=== PATIENT | female | born 1935 | race Caucasian/White ===

== ENCOUNTER → 2019-10-12 13:44 | Outpatient (BNVA) | payer MEDICARE, SELFPAY | PROVIDERS: Family Provider Internal Medicine; PCP Internal Medicine; Visit Provider Nurse Practitioner Family | DX: N39.0 Urinary tract infection, site not specified (principal); R35.0 Frequency of micturition; R30.0 Dysuria; E86.0 Dehydration | CPT/HCPCS: 81000 ==

== ENCOUNTER 2020-05-21 13:14 | Outpatient (CLI) | payer MEDICARE, SELFPAY ==
[2020-05-21] MEDS: iohexol 300 mg/mL 50 mL Btl IV (14:32)
[2020-05-21] MEDS: iodixanol 320 mg/mL 100mL Btl IV (14:33)
--- NOTE | 2020-05-21 15:30 | CT_ITS ---
WS: [id number] CT ABDOMEN AND PELVIS WITH CONTRAST HISTORY: R63.4 - Abnormal weight loss TECHNIQUE: Imaging performed of the abdomen and pelvis with IV contrast. Single phase imaging of the abdomen. Coronal and sagittal reformats are submitted. All CT scans at [facility] use at least one of these dose optimization techniques: automated exposure control; mA and/or kV adjustment per patient size (includes targeted exams where dose is matched to clinical indication); or iterativ e reconstruction. IV CONTRAST: Visipaque 320; 95 mL IV. Oral contrast: Yes. DLP: 604.03 mGy.cm COMPARISON: None available. Lower thorax: Lung bases are clear. Mild enlargement the heart chambers. No hiatal hernia. Liver/biliary system: Normal size with no intrahepatic dilatation. Gallbladder: Normal. No gallstones or wall thickening. No pericholecystic fluid. Pancreas: Normal. Spleen: Normal. Adrenal glands: Normal. Right kidney: Normal size kidney. There are multiple parapelvic cysts and acquired parenchymal cysts within the RIGHT kidney. No obstruction. Left kidney: Normal size kidney. Multiple parapelvic cysts and cord parenchymal cysts. There is a non obstructing 1.2 cm calcification in the lower pole. Aorta: Atherosclerosis of aorta. No aneurysm. Lymphadenopathy: None. Free fluid: None. GI tract: Appendix is not definitely identified. No secondary findings of appendicitis. Moderate diff use fecal retention. Numerous diverticula in the descending and sigmoid colon. No acute inflammation. Abdominal wall: Unremarkable abdominal wall. No hernia. Pelvis: Prior hysterectomy. Moderately well distended urinary bladder. Bones: L4 anterolisthesis by 6 mm. 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 CT/CT abdomen pelvis w con* [id number] IMPRESSION: 1. No acute abdominal or pelvic abnormalities are identified. 2. Diverticulosis throughout the large portion of the colon but no diverticuli tis. 3. Bilateral renal cysts and parapelvic cysts with no obstruction. 4. No ascites or mass.
== END 2020-05-21 13:15 | disposition home or self-care (01) ==
PROVIDERS: PCP Internal Medicine; Visit Provider Internal Medicine
DX: R63.4 Abnormal weight loss (principal); R10.31 Right lower quadrant pain; N28.1 Cyst of kidney, acquired; K57.30 Diverticulosis of large intestine without perforation or abscess without bleeding
CPT/HCPCS: 74177; 80053; 81000; 85025

== ENCOUNTER 2021-07-13 21:53 | Emergency (ER) | payer MEDICARE, SELFPAY ==
[2021-07-13 22:02] VITALS: BP 191/93; PULSE 90; RESP 16; TEMP 36.6; O2SAT 96; BMI 24.7
--- NOTE | 2021-07-13 22:07 | CTR_ITS ---
PROCEDURE INFORMATION: Exam: CT Head Without Contrast Exam date and time: 07/13/2021 10:07 PM Age: 85 years old Clinical indication: Numbness / parasthesia; Right; Patient HX: C/O R facial and neck numbness; Additional info: Symptoms of acute stroke TECHNIQUE: Imaging protocol: Computed tomography of the head without contrast. Radiation optimization: All CT scans at this facility use at least one of these dose optimization techniques: automated exposure control; mA and/or kV adjustment per patient size (includes targeted exams where dose is matched to clinical indication); or iterative reconstruction. COMPARISON: MRI Head w/wo* [id number] 12/27/2018 8:16 AM RADIATION DOSE METRICS: Total DLP (mGy-cm): 769.6 FINDINGS: Brain: Moderate diffuse white matter disease likely reflecting chronic microvascular ischemic changes. Bilateral benign basal ganglia calcifications. Cerebral ventricles: No ventriculomegaly. Paranasal sinuses: Visualized sinuses are unremarkable. No fluid levels. Mastoid air cells: Visualized mastoid air cells are well aerated. Bones/joints: Unremarkable. No acute fracture. Soft tissues: Unremarkable. CT/CT head wo con* [id number] IMPRESSION: Negative for intracranial hemorrhage or mass effect.
--- NOTE | 2021-07-13 22:07 | XRR_ITS ---
PROCEDURE INFORMATION: Exam: XR Chest Exam date and time: 07/13/2021 10:07 PM Age: 85 years old Clinical indication: Pain; Chest pressure; Additional info: Cp TECHNIQUE: Imaging protocol: XR of the chest. Views: 1 view. COMPARISON: CR XR abdomen min 2V [id number] 05/29/2020 11:23 AM FINDINGS: Lungs: Left lower lobe atelectasis versus minimal infiltrate. Pleural spaces: Unremarkable. No pleural effusion. No pneumothorax. Heart/Mediastinum: Unremarkable. No cardiomegaly. Bones/joints: Unremarkable. XR/XR chest 1V portable [id number] IMPRESSION: Left lower lobe atelectasis versus minimal infiltrate.
--- NOTE | 2021-07-13 22:08 | ECG_ITS ---
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 Measurements Intervals [place] Rate: 69 P: 71 MN: 167 QRS: 56 QRSD: 92 T: 44 QT: 420 QTc: 452 Interpretive Statements SINUS RHYTHM No previous ECG available for comparison Electronically Signed On 07-14-2021 17:02:42 HUMANITIES DEPARTMENT CHAIR by Elke Rodriguez M.D. [id number]
--- NOTE | 2021-07-13 22:09 | PC.NURSE ---
patient received with numbness and tingling to bilateral face and neck along with pains in chest, states s/s have resolved at this time. respirations even equal and unlabored, speech clear with complete sentences. IV started blood collected.
[2021-07-13 22:16] LABS: Basophils % 0.5 %; Eosinophils # 0.1 10^3/uL (0.0-0.8); Eosinophils % 2.2 %; Hematocrit 39.3 % (37.0-47.0); Hemoglobin 13.2 g/dL (11.5-15.3); Lymphocytes # 1.7 10^3/uL (0.8-4.8); Lymphocytes % 41.7 %; Mean Corpuscular HGB Conc 33.6 g/dL (30.0-36.0); Mean Corpuscular Hemoglobin 29.5 pg (28.0-34.0); Mean Corpuscular Volume 87.7 fl (81-99); Mean Platelet Volume 10.8 fL (7.4-10.4); Monocytes # 0.6 10^3/uL (0.2-0.9); Monocytes % 14.3 %; Neutrophils # 1.69 10^3/uL (1.8-7.7); Neutrophils % 41.1 %; Nucleated Red Blood Cells % 0 %; Platelet Count 167 10^3/cmm (130-400); Red Blood Count 4.48 10^6/uL (4.1-5.3); Red Cell Distribution Width 13.2 % (12.1-15.1); White Blood Count 4.1 10^3/uL (4.0-10.0)
--- NOTE | 2021-07-13 22:19 | ED_ITS ---
HPI - Neuro Symptoms/Deficit General: Chief Complaint: Neuro Symptoms/Deficit Stated Complaint: Tingling on face Time Seen by Provider: 07/13/21 22:07 Source: patient and family History of Present Illness: 85-year-old female with a history of hypertension. She presents with jaw pain and numbness that started around [age]. It is now resolved. She had also complained of some intermittent chest pains. These are resolved as well. Last Observed Normal: 20:45 Timing confirmed by: spouse History of same: No Severity: moderate Context: sudden onset On Anticoagulants: No Associated symptoms: Reports chest pain, nausea and vomiting (2-3 days ago); Deny headache(s) Review of Systems Const: Reports: chills (3 days); Denies: fever(s) Eyes: Denies: change in vision ENMT: Denies: throat pain Card: Reports: chest pain Resp: Denies: dyspnea, productive cough or non-productive cough GI: Reports: nausea, vomiting (2-3 days ago) and diarrhea (2-3 days ago); Denies: abdominal pain Musc: Reports: neck pain (see above) Skin/Breast: Denies: rash Neuro: Denies: headache(s) PFSH ED PFSH: Medical History HTN (hypertension), benign Surgical History History of hysterectomy Family History Other Cancer Diabetes Stroke Social History Smoking and tobacco status: never smoked Alcohol intake: never Household members: spouse Housing: House Marital status: History of recent travel: No Physical Exam Const: COMMON NORMALS: patient oriented x3 GENERAL APPEARANCE: cooperative and anxious (mildly) HENMT: COMMON NORMALS: normocephalic, atraumatic and Normal external nose present HEAD & SCALP: normocephalic and atraumatic FACE & SINUS: normal facial exam and face symmetric NOSE: Normal external nose present Eye: COMMON NORMALS: Equal, round and reactive pupils present, EOMs intact bilaterally and normal visual [place] by confrontation PUPIL: Yes Equal, round and reactive pupils present Chest: COMMONS NORMALS: normal inspection of the chest Resp: COMMON NORMALS: normal respiratory effort, No use of accessory muscles and clear to auscultation bilaterally EFFORT & INSPECTION: Yes able to speak in complete sentences AUSCULTATION: clear to auscultation bilaterally Cardio: COMMON NORMALS: regular rate, regular rhythm and Peripheral pulses 2+ throughout RATE: regular rate RHYTHM: regular rhythm PERIPHERAL PULSES: Peripheral pulses 2+ throughout GI: COMMON NORMALS: Normal to inspection, nondistended, normoactive bowel sounds present and Soft to palpation PALPATION: Yes Soft to palpation Extremity: COMMON NORMALS: no pedal edema Neuro: KATERINA COMA SCALE: document GCS findings Katerina coma scale eye opening: Spontaneous [place] coma scale verbal response: Orientated Katerina coma scale motor response: Obey commands Katerina coma scale total score: 15 COMMON NORMALS: patient oriented x3 CRANIAL NERVES: Yes CN normal except as noted COORDINATION/BALANCE: bodral-kz-fuej test normal and vjop-pm-shkb test normal SENSORY EXAM: Yes extremities (normal) MOTOR EXAM: Pronator motor function not present COORDINATION: yluhki-ui-hpan test normal and xuuo-ff-aejg test normal Psych: COMMON NORMALS: mental status grossly normal Course Vital Signs: Vital signs: Vital Signs Temperature 97.8 F 07/13/21 22:02 Pulse Rate 90 07/13/21 22:02 Respiratory Rate 16 07/13/21 22:02 Blood Pressure 191/93 07/13/21 22:02 Pulse Oximetry 96 07/13/21 22:02 MDM - Neuro Symptoms/Deficit Medical Decision Making Pain and paresthesias have completely resolved. Blood pressure now 151/76. She is asymptomatic. CBC is normal. BMP is normal. Chest x-ray shows left lower lobe atelectasis, which is minimal. No leukocytosis, hemoglobin 13. First troponin was 14, 2 hours 12. EKG shows a normal sinus rhythm with normal axis, intervals, and no ST changes. No arrhythmias on the monitor. Patient adamantly declined COVID-19 testing. This was proposed due to the history of chills. With resolution of her symptoms she will be allowed discharge. Outpatient orders will be written for cardiac stress evaluation. She has an appointment with her PCP on 07/23. Lab Data : 07/13/21 22:10 07/13/21 22:10 Radiology Impressions Chest X-Ray 07/13/21 22:07 IMPRESSION: Left lower lobe atelectasis versus minimal infiltrate. Head CT 07/13/21 22:07 IMPRESSION: Negative for intracranial hemorrhage or mass effect. Laboratory Results WBC 4.1 10^3/uL (4.0-10.0) 07/13/21 22:10 RBC 4.48 10^6/uL (4.1-5.3) 07/13/21 22:10 Hgb 13.2 g/dL (11.5-15.3) 07/13/21 22:10 Hct 39.3 % (37.0-47.0) 07/13/21 22:10 MCV 87.7 fl (81-99) 07/13/21 22:10 MCH 29.5 pg (28.0-34.0) 07/13/21 22:10 MCHC 33.6 g/dL (30.0-36.0) 07/13/21 22:10 RDW 13.2 % (12.1-15.1) 07/13/21 22:10 Plt Count 167 10^3/cmm (130-400) 07/13/21 22:10 MPV 10.8 fL (7.4-10.4) H 07/13/21 22:10 Neut % (Auto) 41.1 % 07/13/21 22:10 Lymph % (Auto) 41.7 % 07/13/21 22:10 [place] % (Auto) 14.3 % 07/13/21 22:10 Eos % (Auto) 2.2 % 07/13/21 22:10 Baso % (Auto) 0.5 % 07/13/21 22:10 Neut # (Auto) 1.69 10^3/uL (1.8-7.7) L 07/13/21 22:10 Lymph # (Auto) 1.7 10^3/uL (0.8-4.8) 07/13/21 22:10 [place] # (Auto) 0.6 10^3/uL (0.2-0.9) 07/13/21 22:10 Eos # (Auto) 0.1 10^3/uL (0.0-0.8) 07/13/21 22:10 Baso # (Auto) 0.0 10^3/uL (0.0-0.1) 02/27/22 22:10 Nucleated RBC % (auto) 0 % 07/13/21 22:10 Nucleated RBCs # 0.0 /100WBC 07/13/21 22:10 PT 12.30 SECONDS (12.1-14.9) 07/13/21 22:25 INR 0.89 (0.8-1.2) 07/13/21 22:25 APTT 31.5 SECONDS (23.9-36.7) 07/13/21 22:25 Sodium 137 mmol/L (136-145) 07/13/21 22:10 Potassium 3.7 mmol/L (3.5-5.1) 07/13/21 22:10 Chloride 102 mmol/L (98-107) 07/13/21 22:10 Carbon Dioxide 22 mmol/L (22-29) 07/13/21 22:10 Anion Gap 16.7 (5-19) 07/13/21 22:10 BUN 17 mg/dL (8-23) 07/13/21 22:10 Creatinine 0.9 mg/dL (0.5-0.9) 07/13/21 22:10 GFR Calculation Not Reportable 07/13/21 22:10 Glucose 103 mg/dL (65-115) 07/13/21 22:10 Calculated Osmolality 286 mOsm/kg (285-295) 07/13/21 22:10 Calcium 9.0 mg/dL (8.5-10.5) 07/13/21 22:10 Total Bilirubin 0.8 mg/dL (0.15-1.2) 07/13/21 22:10 AST 16 U/L (0-32) 07/13/21 22:10 ALT 10 U/L (0-33) 07/13/21 22:10 Alkaline Phosphatase 112 IU/L (35-105) H 07/13/21 22:10 Troponin T Baseline 14 ng/L (0-10) H 07/13/21 22:10 Total Protein 7.6 g/dL (6.6-8.7) 07/13/21 22:10 Albumin 4.2 g/dL (3.5-5.2) 07/13/21 22:10 Globulin 3.4 g/dL (1.3-4.6) 07/13/21 22:10 Discharge Plan Discharge Patient Disposition: Home Clinical Impression: Chest pain Condition: Stable Prescriptions: No Action amlodipine 10 mg tablet 10 mg PO QDAY 90 Days Qty: 90 3RF irbesartan 300 mg tablet 300 mg PO QDAY 90 Days Qty: 90 3RF fluticasone propionate [Allergy Relief (fluticasone)] 50 mcg/actuation spray,suspension 2 spray INTRANASAL BID Qty: 16 3RF Rx Instructions: administer into each nostril Discharge Orders: Discharge ED (Routine); Ordered 07/14/21 Ordered By: Kolton Ontiveros Referrals: Kana Hui MD [Primary Care Provider] - Patient Instructions: Chest Pain (ED) Activity Restrictions/Additional Instructions: Return for return of chest discomfort, neck or jaw discomfort or numbness, trouble with speech, weakness, shortness of breath, fever, or any other concerning symptoms. An outpatient stress evaluation for your heart will be set up for you. You will receive a call at the beginning of the week to discuss an appointment for this. Follow-up with your doctor. Coding Level of Care Code ED Automotive General Manager for Chg Fwd Exam Comprehensive
[2021-07-13 22:39] LABS: Troponin(5th) Baseline 14 ng/L (0-10)
[2021-07-13 22:42] LABS: Alanine Aminotransferase 10 U/L (0-33); Albumin Level 4.2 g/dL (3.5-5.2); Alkaline Phosphatase 112 IU/L (35-105); Anion Gap 16.7 (5-19); Aspartate Amino Transferase 16 U/L (0-32); Blood Urea Nitrogen 17 mg/dL (8-23); Carbon Dioxide 22 mmol/L (22-29); Chloride 102 mmol/L (98-107); Globulin 3.4 g/dL (1.3-4.6); Glucose 103 mg/dL (65-115); Osmolality Calculated 286 mOsm/kg (285-295); Potassium 3.7 mmol/L (3.5-5.1); Sodium 137 mmol/L (136-145); Total Bilirubin 0.8 mg/dL (0.15-1.2); Total Protein 7.6 g/dL (6.6-8.7)
[2021-07-13 22:45] LABS: INR 0.89 (0.8-1.2)
[2021-07-13 22:46] LABS: Partial Thromboplastin Time 31.5 SECONDS (23.9-36.7)
[2021-07-14 00:22] LABS: Troponin 5 2HR 14.43 ng/L (0-10)
[2021-07-14 01:50] VITALS: BP 136/75; PULSE 69; RESP 16; O2SAT 98
--- NOTE | 2021-07-16 10:10 | DCPLANNER ---
Addendum entered by Milana Castaneda 09/04/21 15:02: research & analytics manager was notified that patient did not want these tests scheduled. Original Note: research & analytics manager had message to schedule an out patient stress test. research & analytics manager emailed signed order to Rylee at centralized scheduling. Centralized scheduling will call patient with appointment information.
== END 2021-07-14 01:51 | disposition home or self-care (01) ==
PROVIDERS: Emergency Provider Emergency Medicine; PCP Internal Medicine
DX: R07.9 Chest pain, unspecified (principal); I10 Essential (primary) hypertension
CPT/HCPCS: 70450; 71045; 80053; 84484; 85025; 85610; 85730; 93005; 99283

== ENCOUNTER → 2022-12-03 13:07 | Outpatient (BNVA) | payer MEDICARE, SELFPAY | PROVIDERS: PCP Internal Medicine; Visit Provider Nurse Practitioner Family | DX: L57.8 Other skin changes due to chronic exposure to nonionizing radiation (principal); L57.0 Actinic keratosis; L81.4 Other melanin hyperpigmentation; D22.5 Melanocytic nevi of trunk; L85.3 Xerosis cutis; L82.1 Other seborrheic keratosis; Z85.828 Personal history of other malignant neoplasm of skin | CPT/HCPCS: 11102; 17004; 99213 ==

== ENCOUNTER → 2023-03-30 09:36 | Outpatient (BNVA) | payer MEDICARE, SELFPAY | PROVIDERS: PCP Internal Medicine; Visit Provider Nurse Practitioner Family | DX: L57.8 Other skin changes due to chronic exposure to nonionizing radiation (principal); Z85.828 Personal history of other malignant neoplasm of skin; L57.0 Actinic keratosis; D22.5 Melanocytic nevi of trunk; L85.3 Xerosis cutis; L82.1 Other seborrheic keratosis | CPT/HCPCS: 17000; 99213 ==

== ENCOUNTER → 2023-08-26 13:07 | Outpatient (BNVA) | payer MEDICARE, SELFPAY | PROVIDERS: PCP Internal Medicine; Visit Provider Nurse Practitioner Family | DX: D48.5 Neoplasm of uncertain behavior of skin (principal); L57.0 Actinic keratosis; L57.8 Other skin changes due to chronic exposure to nonionizing radiation; D22.5 Melanocytic nevi of trunk; L81.4 Other melanin hyperpigmentation; L85.3 Xerosis cutis; L82.1 Other seborrheic keratosis; Z85.828 Personal history of other malignant neoplasm of skin | CPT/HCPCS: 11102; 17000; 99213 ==

== ENCOUNTER → 2023-09-20 09:46 | Outpatient (BNVA) | payer MEDICARE, SELFPAY | PROVIDERS: PCP Internal Medicine; Visit Provider Dermatology | DX: C44.519 Basal cell carcinoma of skin of other part of trunk (principal) | CPT/HCPCS: 17262; 99213 ==

== ENCOUNTER → 2023-12-30 10:42 | Outpatient (BNVA) | payer MEDICARE, SELFPAY | PROVIDERS: PCP Internal Medicine; Visit Provider Nurse Practitioner Family | DX: C44.91 Basal cell carcinoma of skin, unspecified (principal); L91.0 Hypertrophic scar; L82.1 Other seborrheic keratosis; L57.0 Actinic keratosis; D48.5 Neoplasm of uncertain behavior of skin | CPT/HCPCS: 11102; 17000; 99213 ==

== ENCOUNTER → 2024-02-29 13:16 | Outpatient (BNVA) | payer MEDICARE, SELFPAY | PROVIDERS: PCP Internal Medicine; Visit Provider Nurse Practitioner Family | DX: L57.0 Actinic keratosis (principal); L82.0 Inflamed seborrheic keratosis; L91.0 Hypertrophic scar; Z85.828 Personal history of other malignant neoplasm of skin | CPT/HCPCS: 17000; 99213 ==

== ENCOUNTER → 2024-08-15 14:58 | Outpatient (BNVA) | payer MEDICARE, SELFPAY | PROVIDERS: PCP Internal Medicine; Visit Provider Nurse Practitioner Family | DX: C44.519 Basal cell carcinoma of skin of other part of trunk (principal); Z08 Encounter for follow-up examination after completed treatment for malignant neoplasm; Z85.828 Personal history of other malignant neoplasm of skin; L57.0 Actinic keratosis | CPT/HCPCS: 17000; 17260; 99213 ==

== ENCOUNTER 2024-10-20 03:36 | Emergency (ER) | payer MEDICARE, SELFPAY ==
--- NOTE | 2024-10-20 04:00 | XRR_ITS ---
PROCEDURE INFORMATION: Exam: XR Abdomen Exam date and time: 10/20/2024 4:59 AM Age: 88 years old Clinical indication: Abdominal pain; Periumbilical TECHNIQUE: Imaging protocol: Radiologic exam of the abdomen. Views: 2 Views. Upright and supine views. COMPARISON: CR XR abdomen min 2V [id number] 05/29/2020 11:23 AM FINDINGS: Lungs: Minimal atelectasis in the right mid lung. Gastrointestinal tract: Moderate colonic fecal material suggesting constipation. Intraperitoneal space: Normal. No free air. Organs: Calcification in the left upper quadrant may be in the left kidney. Bones/joints: Unremarkable for age. XR/XR acute abdomen series [id number] IMPRESSION: Nonspecific.
[2024-10-20 04:05] VITALS: BP 148/103; PULSE 89; RESP 18; TEMP 36.8; O2SAT 97; BMI 22.1
[2024-10-20 04:44] LABS: Basophils % 0.7 %; Eosinophils # 0.1 10^3/uL (0.0-0.8); Eosinophils % 1.4 %; Lymphocytes # 1.8 10^3/uL (0.8-4.8); Lymphocytes % 30.1 %; Mean Corpuscular Hemoglobin 29.4 pg (27-33); Mean Corpuscular Volume 83.9 fl (85-98); Mean Platelet Volume 10.1 fL (7.4-10.4); Monocytes # 0.6 10^3/uL (0.2-0.9); Monocytes % 10.3 %; Neutrophils # 3.34 10^3/uL (1.8-7.7); Neutrophils % 57.3 %; Nucleated Red Blood Cells % 0 %; Platelet Count 216 10^3/cmm (157-399); Red Blood Count 4.53 10^6/uL (3.85-5.65); Red Cell Distribution Width 12.9 % (12.1-15.1); White Blood Count 5.82 10^3/uL (3.29-11.43)
[2024-10-20 05:03] LABS: Alanine Aminotransferase 11 U/L (0-33); Albumin Level 4.3 g/dL (3.5-5.2); Alkaline Phosphatase 111 U/L (35-105); Anion Gap 16.4 (5-19); Aspartate Amino Transferase 17 U/L (0-32); Blood Urea Nitrogen 16 mg/dL (8-23); Calcium 9.5 mg/dL (8.5-10.5); Carbon Dioxide 22 mmol/L (22-29); Chloride 93 mmol/L (98-107); Creatinine Clr Calc Pharmacy 49.8388; Globulin 3.4 g/dL (1.3-4.6); Glucose 113 mg/dL (65-115); Lipase 33 U/L (13-60); Osmolality Calculated 266 mOsm/kg (285-295); Potassium 4.4 mmol/L (3.5-5.1); Sodium 127 mmol/L (136-145); Total Bilirubin 1.1 mg/dL (0.15-1.2); Total Protein 7.7 g/dL (6.6-8.7)
[2024-10-20 05:04] LABS: Lactic Sepsis W/Reflex 0.9 mmol/L (0.5-2.2)
--- NOTE | 2024-10-20 05:11 | CTR_ITS ---
PROCEDURE INFORMATION: Exam: CT Abdomen And Pelvis With Contrast Exam date and time: 10/20/2024 5:41 AM Age: 88 years old Clinical indication: Abdominal pain; Generalized; Prior surgery; Surgery date: 6+ months; Surgery type: Hysterectomy TECHNIQUE: Imaging protocol: Computed tomography of the abdomen and pelvis with contrast. Radiation optimization: All CT scans at this facility use at least one of these dose optimization techniques: automated exposure control; mA and/or kV adjustment per patient size (includes targeted exams where dose is matched to clinical indication); or iterative reconstruction. Contrast material: OMNI 350; Contrast volume: 100 ml; Contrast route: INTRAVENOUS (IV); COMPARISON: CR (ABDOMEN, ) 10/20/2024 4:59 AM RADIATION DOSE METRICS: Total DLP (mGy-cm): 407.3 FINDINGS: Liver: Tiny hepatic cysts. Gallbladder and biliary ducts: Normal. No calcified stones. No ductal dilation. Pancreas: Normal. No ductal dilation. Spleen: Normal. No splenomegaly. Adrenal glands: Normal. No mass. Kidneys and ureters: Bilateral renal cysts. Many are peripelvic. 11 mm calculus in the mid left kidney. Stomach and bowel: Diverticulosis without evidence of diverticulitis. Appendix: No evidence of appendicitis. Intraperitoneal space: Unremarkable. No free air. No significant fluid collection. Vasculature: Unremarkable. No abdominal aortic aneurysm. Lymph nodes: Unremarkable. No enlarged lymph nodes. Urinary bladder: Unremarkable as visualized. Reproductive: Hysterectomy. Bones/joints: Unremarkable. No acute fracture. Soft tissues: Unremarkable. CT/CT abdomen pelvis w con* [id number] IMPRESSION: 1. No acute findings. 2. Left renal calculus. 3. Extensive renal cysts. COMMENTS: Consistent with the [place] [employer]'s Incidental Findings Committee white paper (J Am Willis Radiol 2018): Any incidental renal lesion less than 1 cm or classified as too small to characterize, or any incidental cystic renal lesion characterized as simple-appearing, is likely benign. No follow-up imaging is recommended for these lesions per consensus recommendations based on imaging criteria.
--- NOTE | 2024-10-20 05:15 | ED_ITS ---
Documented by User: Hanny Pena MD 10/20/24 05:17 HPI - Abdominal Pain 2 General: Chief Complaint: Abdominal Pain Stated Complaint: no BM in a week neropathy Time Seen by Provider: 10/20/24 05:02 History of Present Illness: 88-year-old female with a history of art hritis and recently started on narcotic pain medications who presents emergency room with abdominal pain and constipation. She says she has had difficulty with bowel movements for 2 weeks but the pain got so much worse tonight she could not get comfortable laying flat or sitting up. No nausea or vomiting. No fevers. Apparently she has been using some MiraLAX and it has not helped. Related Data Home Medications ?Medication ?Instructions ?Recorded ?Confirmed vit C 250 mg-E 90 mg-zinc 40 1 tab PO BID 07/23/21 mg-copper 1 [id number]-wnrqdy chew tablet (PreserVision AREDS-2) Previous Rx's ?Medication ?Instructions ?Recorded amlodipine 10 mg tablet 10 mg PO QDAY 90 days #90 ta bs 12/22/21 irbesartan 300 mg tablet 300 mg PO QDAY 90 days #90 t abs 03/02/22 fluticasone propionate 50 2 spray intranasal BID #16 g kelvin 03/19/22 mcg/actuation nasal spray,suspension (Allergy Relief (fluticasone)) imiquimod 5 % topical cream packet 1 applic topical ON CE 6 weeks #24 08/24/22 ea magnesium citrate 300 ml PO DAILY PRN constipa tion 10/20/24 #296 mL sennosides 8.6 mg-docusate sodium 1 tab-cap PO BID PRN constipation 10/20/24 50 mg tablet (Senna with Docusate #20 tabs Sodium) Allergies Allergy/AdvReac Type Severity Reaction Status Date / Time No Known Allergies Allergy Verified 08/14/22 08:52 Review of Systems 2 Narrative: Constitutional symptoms: Negative except as documented in HPI. Skin symptoms: Negative except as documented in HPI. Eye symptoms: Negative except as documented in HPI. ENMT symptoms: Negative except as documented in HPI. Respiratory symptoms: Negative except as documented in HPI. Cardiovascular symptoms: Negative except as documented in HPI. Gastrointestinal symptoms: Negative except as documented in HPI. Genitourinary symptoms: Negative except as documented in HPI. Musculoskeletal symptoms: Negative except as documented in HPI. Neurologic symptoms: Negative except as documented in HPI. Psychiatric symptoms: Negative except as documented in HPI. Endocrine symptoms: Negative except as documented in HPI. PFSH ED 2 PFSH: Medical History HTN (hypertension), benign Surgical History History of hysterectomy Family History Other Cancer Diabetes Stroke Social History Smoking and tobacco/nicotine status: never used tobacco/nicotine Alcohol intake: never Substance/Drug Use: never Household members: spouse Housing: House Marital status: Physical Exam 2 Narrative: EXAM NARRATIVE: General: Alert, no acute distress. Skin: Warm, dry. Head: Normocephalic, atraumatic. Neck: Supple, trachea midline. Eye: Extraocular movements are intact. Ears, nose, mouth and throat: mucosa moist. Cardiovascular: Regular, Normal peripheral perfusion. Respiratory: Lungs are clear to auscultation, respirations are non-labored, breath sounds are equal, Symmetrical chest wall expansion. Gastrointestinal: Soft, diffuse tenderness, Non distended Musculoskeletal: Normal ROM, no deformity. Neurological: Alert and oriented, No focal neurological deficit observed. Psychiatric: Cooperative, appropriate mood & affect. Course 2 Vital Signs: Vital signs: Vital Signs Temperature 98.2 F 10/20/24 04:05 Pulse Rate 71 10/20/24 05:47 Respiratory Rate 18 10/20/24 04:05 Blood Pressure 175/106 10/20/24 05:47 Pulse Oximetry 96 10/20/24 05:47 MDM - Abdominal Pain Medical Decision Making Medical decision making: Differential diagnosis including but not limited to and based on the above HPI, review of systems and physical exam: - patient with complaint of constipation: Small bowel obstruction. Gastroparesis. Constipation. Also evaluation for urinary retention, liver disease, renal failure. Orders placed to evaluate differential diagnosis based on the above differential, HPI and physical exam Lab Review: Laboratory results were reviewed and interpreted by myself the emergency room physician. I reviewed the patient's medical record. Reexamination: Lab Data 10/20/24 04:37 10/20/24 04:37 Labs/Radiology: Radiology Impressions Chest/Abdomen X-ray 10/20/24 04:00 IMPRESSION: Nonspecific. Abdomen/Pelvis CT 10/20/24 05:11 IMPRESSION: 1. No acute findings. 2. Left renal calculus. 3. Extensive renal cysts. COMMENTS: Consistent with the [employer]'s Incidental Findings Committee white paper (J Am Willis Radiol 2018): Any incidental renal lesion less than 1 cm or classified as too small to characterize, or any incidental cystic renal lesion characterized as simple-appearing, is likely benign. No follow-up imaging is recommended for these lesions per consensus recommendations based on imaging criteria. Laboratory Results WBC 5.82 10^3/uL (3.29-11.43) 10/20/24 04:37 RBC 4.53 10^6/uL (3.85-5.65) 10/20/24 04:37 Hgb 13.30 g/dL (11.27-16.99) 10/20/24 04:37 Hct 38.0 % (36-47) 10/20/24 04:37 MCV 83.9 fl (85-98) L 10/20/24 04:37 MCH 29.4 pg (27-33) 10/20/24 04:37 MCHC 35.0 g/dL (30-55) 10/20/24 04:37 RDW 12.9 % (12.1-15.1) 10/20/24 04:37 Plt Count 216 10^3/cmm (157-399) 10/20/24 04:37 MPV 10.1 fL (7.4-10.4) 10/20/24 04:37 Neut % (Auto) 57.3 % 10/20/24 04:37 Lymph % (Auto) 30.1 % 10/20/24 04:37 [place] % (Auto) 10.3 % 10/20/24 04:37 Eos % (Auto) 1.4 % 10/20/24 04:37 Baso % (Auto) 0.7 % 10/20/24 04:37 Neut # (Auto) 3.34 10^3/uL (1.8-7.7) 10/20/24 04:37 Lymph # (Auto) 1.8 10^3/uL (0.8-4.8) 10/20/24 04:37 [place] # (Auto) 0.6 10^3/uL (0.2-0.9) 10/20/24 04:37 Eos # (Auto) 0.1 10^3/uL (0.0-0.8) 10/20/24 04:37 Baso # (Auto) 0.0 10^3/uL (0.0-0.1) 10/20/24 04:37 Nucleated RBC % (auto) 0 % 10/20/24 04:37 Nucleated RBCs # 0.0 /100WBC 10/20/24 04:37 Sodium 127 mmol/L (136-145) L 10/20/24 04:37 Potassium 4.4 mmol/L (3.5-5.1) 10/20/24 04:37 Chloride 93 mmol/L (98-107) L 10/20/24 04:37 Carbon Dioxide 22 mmol/L (22-29) 10/20/24 04:37 Anion Gap 16.4 (5-19) 10/20/24 04:37 BUN 16 mg/dL (8-23) 10/20/24 04:37 Creatinine 0.8 mg/dL (0.5-0.9) 10/20/24 04:37 GFR Calculation Not Reportable 10/20/24 04:37 Glucose 113 mg/dL (65-115) 10/20/24 04:37 Calculated Osmolality 266 mOsm/kg (285-295) L 10/20/24 04:37 Lactic Acid 0.9 mmol/L (0.5-2.2) 10/20/24 04:37 Calcium 9.5 mg/dL (8.5-10.5) 10/20/24 04:37 Total Bilirubin 1.1 mg/dL (0.15-1.2) 10/20/24 04:37 AST 17 U/L (0-32) 10/20/24 04:37 ALT 11 U/L (0-33) 10/20/24 04:37 Alkaline Phosphatase 111 U/L (35-105) H 10/20/24 04:37 Total Protein 7.7 g/dL (6.6-8.7) 10/20/24 04:37 Albumin 4.3 g/dL (3.5-5.2) 10/20/24 04:37 Globulin 3.4 g/dL (1.3-4.6) 10/20/24 04:37 Lipase 33 U/L (13-60) 10/20/24 04:37 Urine Color Yellow (Yellow) 10/20/24 06:16 Urine Appearance Clear (CLEAR) 10/20/24 06:16 Urine pH 7.5 (5-7) 10/20/24 06:16 Ur Specific [place] 1.023 (1.005-1.030) 10/20/24 06:16 Urine Protein Negative (Negative) 10/20/24 06:16 Urine Glucose (UA) Negative (Normal) 10/20/24 06:16 Urine Ketones Negative (Negative) 10/20/24 06:16 Urine Blood Negative (Negative) 10/20/24 06:16 Urine Nitrate Negative (Negative) 10/20/24 06:16 Urine Bilirubin Negative (Negative) 10/20/24 06:16 Urine Urobilinogen 1.0 mg/dL (Negative) 10/20/24 06:16 Ur Leukocyte Esterase Negative (Negative) 10/20/24 06:16 Urine RBC 0-2 /hpf (0-2) 10/20/24 06:16 Urine WBC 0-5 /hpf (0-5) 10/20/24 06:16 Ur Squamous Epith Cells 0-5 /hpf (0-5) 10/20/24 06:16 Amorphous Sediment Not Reportable 10/20/24 06:16 Urine Bacteria None seen /hpf (NONE) 10/20/24 06:16 Hyaline Casts 0.40 /lpf 10/20/24 06:16 Discharge Plan Discharge Patient Disposition: Home Clinical Impression: Constipation in female, Abdominal pain in female, Opiate use Condition: Stable Prescriptions: New sennosides-docusate sodium [Senna with Docusate Sodium] 8.6-50 mg tablet 1 tab-cap PO BID PRN (Reason: constipation) Qty: 20 0RF magnesium citrate Solution 300 ml PO DAILY PRN (Reason: constipation) Qty: 296 0RF No Action PreserVision AREDS-2 250-90-40-1 mg tablet,chewable 1 tab PO BID imiquimod 5 % cream in packet 1 applic topical ONCE 42 Days Qty: 24 1RF Rx Instructions: Apply thin film Wednesday-Wednesday only (off weekends) for 6 weeks. amlodipine 10 mg tablet 10 mg PO QDAY 90 Days Qty: 90 3RF irbesartan 300 mg tablet 300 mg PO QDAY 90 Days Qty: 90 3RF fluticasone propionate [Allergy Relief (fluticasone)] 50 mcg/actuation spray,suspension 2 spray INTRANASAL BID Qty: 16 3RF Rx Instructions: administer into each nostril Discharge Orders: Discharge ED (Routine); Ordered 10/20/24 Ordered By: Segundo Long Discharge Diet: Advance as tolerated and Soft Mechanical Discharge Activity: Increase activity as tolerated Patient Instructions: Abdominal Pain (ED), Opioid Safety, Pain Management, Constipation - Adult, High Fiber Diet (ED) Activity Restrictions/Additional Instructions: Take medications as prescribed with further follow-up primary care in 3 to 5 days increase your consumption of water as well as increase fiber in your diet please return the interim if any of your symptoms persist or worsen. Print Language: [place]ian Coding Level of Care Code ED Manager Agency for [facility] Documented by User: Segundo Long 10/20/24 07:46 HPI - Abdominal Pain 2 General: Chief Complaint: Abdominal Pain Stated Complaint: no BM in a week neropathy Time Seen by Provider: 10/20/24 05:02 Related Data Home Medications ?Medication ?Instructions ?Recorded ?Confirmed vit C 250 mg-E 90 mg-zinc 40 1 tab PO BID 07/23/21 mg-copper 1 [id number]-evaifk chew tablet (PreserVision AREDS-2) Previous Rx's ?Medication ?Instructions ?Recorded amlodipine 10 mg tablet 10 mg PO QDAY 90 days #90 ta bs 12/22/21 irbesartan 300 mg tablet 300 mg PO QDAY 90 days #90 t abs 03/02/22 fluticasone propionate 50 2 spray intranasal BID #16 g kelvin 03/19/22 mcg/actuation nasal spray,suspension (Allergy Relief (fluticasone)) imiquimod 5 % topical cream packet 1 applic topical ON CE 6 weeks #24 04/10/23 ea magnesium citrate 300 ml PO DAILY PRN constipa tion 10/20/24 #296 mL sennosides 8.6 mg-docusate sodium 1 tab-cap PO BID PRN constipation 10/20/24 50 mg tablet (Senna with Docusate #20 tabs Sodium) Allergies Allergy/AdvReac Type Severity Reaction Status Date / Time No Known Allergies Allergy Verified 08/14/22 08:52 PFSH ED 2 PFSH: Medical History HTN (hypertension), benign Surgical History History of hysterectomy Family History Other Cancer Diabetes Stroke Social History Smoking and tobacco/nicotine status: never used tobacco/nicotine Alcohol intake: never Substance/Drug Use: never Household members: spouse Housing: House Marital status: Course 2 Vital Signs: Vital signs: Vital Signs Temperature 98.2 F 10/20/24 04:05 Pulse Rate 71 10/20/24 05:47 Respiratory Rate 18 10/20/24 04:05 Blood Pressure 175/106 10/20/24 05:47 Pulse Oximetry 96 10/20/24 05:47 MDM - Abdominal Pain Lab Data 10/20/24 04:37 10/20/24 04:37 Labs/Radiology: Radiology Impressions Chest/Abdomen X-ray 10/20/24 04:00 IMPRESSION: Nonspecific. Abdomen/Pelvis CT 10/20/24 05:11 IMPRESSION: 1. No acute findings. 2. Left renal calculus. 3. Extensive renal cysts. COMMENTS: Consistent with the [employer]'s Incidental Findings Committee white paper (J Am Willis Radiol 2018): Any incidental renal lesion less than 1 cm or classified as too small to characterize, or any incidental cystic renal lesion characterized as simple-appearing, is likely benign. No follow-up imaging is recommended for these lesions per consensus recommendations based on imaging criteria. Laboratory Results WBC 5.82 10^3/uL (3.29-11.43) 10/20/24 04:37 RBC 4.53 10^6/uL (3.85-5.65) 10/20/24 04:37 Hgb 13.30 g/dL (11.27-16.99) 10/20/24 04:37 Hct 38.0 % (36-47) 10/20/24 04:37 MCV 83.9 fl (85-98) L 10/20/24 04:37 MCH 29.4 pg (27-33) 10/20/24 04:37 MCHC 35.0 g/dL (30-55) 10/20/24 04:37 RDW 12.9 % (12.1-15.1) 10/20/24 04:37 Plt Count 216 10^3/cmm (157-399) 10/20/24 04:37 MPV 10.1 fL (7.4-10.4) 10/20/24 04:37 Neut % (Auto) 57.3 % 10/20/24 04:37 Lymph % (Auto) 30.1 % 10/20/24 04:37 [place] % (Auto) 10.3 % 10/20/24 04:37 Eos % (Auto) 1.4 % 10/20/24 04:37 Baso % (Auto) 0.7 % 10/20/24 04:37 Neut # (Auto) 3.34 10^3/uL (1.8-7.7) 10/20/24 04:37 Lymph # (Auto) 1.8 10^3/uL (0.8-4.8) 10/20/24 04:37 [place] # (Auto) 0.6 10^3/uL (0.2-0.9) 10/20/24 04:37 Eos # (Auto) 0.1 10^3/uL (0.0-0.8) 10/20/24 04:37 Baso # (Auto) 0.0 10^3/uL (0.0-0.1) 10/20/24 04:37 Nucleated RBC % (auto) 0 % 10/20/24 04:37 Nucleated RBCs # 0.0 /100WBC 10/20/24 04:37 Sodium 127 mmol/L (136-145) L 10/20/24 04:37 Potassium 4.4 mmol/L (3.5-5.1) 10/20/24 04:37 Chloride 93 mmol/L (98-107) L 10/20/24 04:37 Carbon Dioxide 22 mmol/L (22-29) 10/20/24 04:37 Anion Gap 16.4 (5-19) 10/20/24 04:37 BUN 16 mg/dL (8-23) 10/20/24 04:37 Creatinine 0.8 mg/dL (0.5-0.9) 10/20/24 04:37 GFR Calculation Not Reportable 10/20/24 04:37 Glucose 113 mg/dL (65-115) 10/20/24 04:37 Calculated Osmolality 266 mOsm/kg (285-295) L 10/20/24 04:37 Lactic Acid 0.9 mmol/L (0.5-2.2) 10/20/24 04:37 Calcium 9.5 mg/dL (8.5-10.5) 10/20/24 04:37 Total Bilirubin 1.1 mg/dL (0.15-1.2) 10/20/24 04:37 AST 17 U/L (0-32) 10/20/24 04:37 ALT 11 U/L (0-33) 10/20/24 04:37 Alkaline Phosphatase 111 U/L (35-105) H 10/20/24 04:37 Total Protein 7.7 g/dL (6.6-8.7) 10/20/24 04:37 Albumin 4.3 g/dL (3.5-5.2) 10/20/24 04:37 Globulin 3.4 g/dL (1.3-4.6) 10/20/24 04:37 Lipase 33 U/L (13-60) 10/20/24 04:37 Urine Color Yellow (Yellow) 10/20/24 06:16 Urine Appearance Clear (CLEAR) 10/20/24 06:16 Urine pH 7.5 (5-7) 10/20/24 06:16 Ur Specific [place] 1.023 (1.005-1.030) 10/20/24 06:16 Urine Protein Negative (Negative) 10/20/24 06:16 Urine Glucose (UA) Negative (Normal) 10/20/24 06:16 Urine Ketones Negative (Negative) 10/20/24 06:16 Urine Blood Negative (Negative) 10/20/24 06:16 Urine Nitrate Negative (Negative) 10/20/24 06:16 Urine Bilirubin Negative (Negative) 10/20/24 06:16 Urine Urobilinogen 1.0 mg/dL (Negative) 10/20/24 06:16 Ur Leukocyte Esterase Negative (Negative) 10/20/24 06:16 Urine RBC 0-2 /hpf (0-2) 10/20/24 06:16 Urine WBC 0-5 /hpf (0-5) 10/20/24 06:16 Ur Squamous Epith Cells 0-5 /hpf (0-5) 10/20/24 06:16 Amorphous Sediment Not Reportable 10/20/24 06:16 Urine Bacteria None seen /hpf (NONE) 10/20/24 06:16 Hyaline Casts 0.40 /lpf 10/20/24 06:16 All radiology interpretation(s) finalized by discharge Other Data This patient was signed out to myself Dr. Long by Dr. Pena at 0600, patient's CAT scan came back unremarkable for any obvious acute findings patient be started on some additional medications for her constipation urinalysis also came back unremarkable advised further follow-up with primary care in 3 to 5 days which patient was advised return the interim if any of her symptoms persist or worse. Discharge Plan Discharge Patient Disposition: Home Clinical Impression: Constipation in female, Abdominal pain in female, Opiate use Condition: Stable Prescriptions: New sennosides-docusate sodium [Senna with Docusate Sodium] 8.6-50 mg tablet 1 tab-cap PO BID PRN (Reason: constipation) Qty: 20 0RF magnesium citrate Solution 300 ml PO DAILY PRN (Reason: constipation) Qty: 296 0RF No Action PreserVision AREDS-2 250-90-40-1 mg tablet,chewable 1 tab PO BID imiquimod 5 % cream in packet 1 applic topical ONCE 42 Days Qty: 24 1RF Rx Instructions: Apply thin film Wednesday-Wednesday only (off weekends) for 6 weeks. amlodipine 10 mg tablet 10 mg PO QDAY 90 Days Qty: 90 3RF irbesartan 300 mg tablet 300 mg PO QDAY 90 Days Qty: 90 3RF fluticasone propionate [Allergy Relief (fluticasone)] 50 mcg/actuation spray,suspension 2 spray INTRANASAL BID Qty: 16 3RF Rx Instructions: administer into each nostril Discharge Orders: Discharge ED (Routine); Ordered 10/20/24 Ordered By: Segundo Long Discharge Diet: Advance as tolerated and Soft Mechanical Discharge Activity: Increase activity as tolerated Patient Instructions: Abdominal Pain (ED), Opioid Safety, Pain Management, Constipation - Adult, High Fiber Diet (ED) Activity Restrictions/Additional Instructions: Take medications as prescribed with further follow-up primary care in 3 to 5 days increase your consumption of water as well as increase fiber in your diet please return the interim if any of your symptoms persist or worsen. Print Language: Bur[place]ian Coding Level of Care Code ED Manager Agency for [facility]
[2024-10-20] MEDS: sodium chloride 0.9% 1,000 ML 999 ML IV (05:38)
[2024-10-20] MEDS: iohexol 350 mg/mL 500 mL Btl (per mL) IV (05:42)
[2024-10-20 05:47] VITALS: BP 175/106; PULSE 71; O2SAT 96
[2024-10-20 07:20] LABS: Bilirubin Urine Negative (Negative); Blood Urine Negative (Negative); Glucose Urine UA Negative (Normal); Ketones Urine Negative (Negative); Leukocyte Esterase Urine Negative (Negative); Nitrate Urine Negative (Negative); Protein Urine Negative (Negative); Specific Gravity, Urine 1.023 (1.005-1.030); Urine Appearance Clear (CLEAR); Urine Color Yellow (Yellow); pH Urine 7.5 (5-7)
[2024-10-20 07:22] LABS: Bacteria Urine None Seen /hpf; RBC Urine 0-2 /hpf (0-2); Squamous Epithelial Cell Urine 0-5 /hpf (0-5); WBC Urine 0-5 /hpf (0-5)
--- NOTE | 2024-10-20 07:37 | PC.NURSE ---
Relistor 12mg Sub-Q delayed d/t needing pharmacy to bring to ED
[2024-10-20 07:51] VITALS: BP 144/78; PULSE 88; O2SAT 98
[2024-10-20] MEDS: methylnaltrexone 12 /0.6 mL INJ 12 MG SUBCUT (07:53)
== END 2024-10-20 08:03 | disposition home or self-care (01) ==
PROVIDERS: Emergency Medicine; Emergency Provider Emergency Medicine
DX: K59.00 Constipation, unspecified (principal); F11.90 Opioid use, unspecified, uncomplicated; I10 Essential (primary) hypertension
CPT/HCPCS: 36415; 74022; 74177; 80053; 81001; 83605; 83690; 85025; 96360; 96361; 96372; 99285; J2212; J7030

== ENCOUNTER 2024-10-20 14:45 | Outpatient (CLI) | payer MEDICARE, SELFPAY ==
--- NOTE | 2024-10-20 14:49 | XR_ITS ---
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 FINDINGS: The L1-L4 bone mineral density measures 1.03. This corresponds to a T score score of -1.4 and Z score of 0.5. Left femoral neck bone mineral density measures 0.643 g/cm2. This corresponds to a T score of -2.9 and Z score of -0.5. Right femoral neck bone mineral density measures 0.658 g/cm2. This corresponds to a T score -2.8of and Z score of -0.4. Mean femoral neck bone mineral density measures 0.650 g/cm2. This corresponds to a T score of -2.8 and Z score of -0.5. XR/XR DEXA axial skeleton* 73220 IMPRESSION: Osteopenia lumbar spine. Osteoporosis femoral necks. Patient's FRAX calculated 10 year probability for major osteoporotic fracture i s 21.4% and osteoporotic hip fracture is 8.6%.
== END 2024-10-20 14:46 | disposition home or self-care (01) ==
LOC: RAD 14:47
PROVIDERS: PCP Family Medicine; Visit Provider Neurological Surgery
DX: M81.0 Age-related osteoporosis without current pathological fracture (principal); M85.88 Other specified disorders of bone density and structure, other site
CPT/HCPCS: 77080

== ENCOUNTER 2024-10-24 11:54 | Observation (INO) | payer MEDICARE, SELFPAY ==
[2024-10-24] VITALS (8 sets, daily range): BP systolic 138–164; BP diastolic 70–87; PULSE 77–98; RESP 16–26; TEMP 36.8–37.1; O2SAT 94–99
--- NOTE | 2024-10-24 12:01 | W.ED.BACK ---
Documented by User: [email or web address] Marquez 10/24/24 14:51 HPI - Back Pain/Injury General: Chief Complaint: Back Pain/Injury Stated Complaint: Back Pain Time Seen by Provider: 10/24/24 11:57 Source: patient Mode of arrival: EMS Limitations: no limitations History of Present Illness: Patient is an 88-year-old female who presents to the ED via EMS for back pain prominent on her right side. She states the back pain started a week ago and has progressively gotten worse. She does not complain of numbness/loss of sensation or weakness to legs. Has not complained of any urinary/bowel retention/incontinence. Her last bowel movement was over a week ago despite laxatives. She states she recently was started on an opioid 3 days ago by her PCP. She states the back pain does not radiate and it is a constant sharp pain localized on her R side. Still is passing flatus. Admits to nausea, chills, and mild LLQ abdominal pain. Denies any urinary symptoms, has no history of kidney dysfunction or urolithiasis, no history of IBD. Was seen in the ER approximately 4 days ago for the same problem and was given docusate senna and magnesium to help with the constipation. Had CT scan at that visit which was unremarkable. Patient today states she has been taking the medications with no relief. MD elicited complaint: back pain (R back pain) Pertinent past history: other (Constipation) Onset (ago): week(s) (1 week) Timing: constant Severity: severe Pain scale (0-10): 8 Similar Symptoms Previously: Yes Quality: sharp, stabbing and throbbing Location: right lower back Radiation: none Exacerbating factors: none Relieving factors: none Associated symptoms: Reports abdominal pain (Left lower quadrant), chills, nausea and other (Constipation); Deny dysuria, fever(s), syncope or vomiting Treatments prior to arrival: other (Docusate senna, MiraLAX, magnesium citrate) Related Data Home Medications ?Medication ?Instructions ?Recorded ?Confirmed vit C 250 mg-E 90 mg-zinc 40 1 tab PO BID 07/23/21 10/25/24 mg-copper 1 [id number] chew tablet (PreserVision AREDS-2) amitriptyline 10 mg tablet 20 mg PO DAILY 10/25/24 10/25/24 gabapentin 300 mg capsule 300 mg PO BID 10/25/24 10/25/24 hydrocodone 5 mg-acetaminophen 325 1 tab PO BEDTIME PRN Severe Pain 10/25/24 10/25/24 mg tablet (Scale Score 7-10) irbesartan 300 mg tablet 300 mg PO DAILY 10/25/24 10/25/24 tramadol 50 mg tablet 50 mg PO BID PRN pain 10/25/24 10/25/24 Previous Rx's ?Medication ?Instructions ?Recorded amlodipine 10 mg tablet 10 mg PO QDAY 90 days #90 tabs 12/22/21 fluticasone propionate 50 2 spray intranasal BID #16 grams 03/19/22 mcg/actuation nasal spray,suspension (Allergy Relief (fluticasone)) magnesium citrate 300 ml PO DAILY PRN constipation 10/20/24 #296 mL sennosides 8.6 mg-docusate sodium 1 tab-cap PO BID PRN constipation 10/20/24 50 mg tablet (Senna with Docusate #20 tabs Sodium) Allergies Allergy/AdvReac Type Severity Reaction Status Date / Time No Known Allergies Allergy Verified 08/14/22 08:52 Review of Systems Const: Reports: chills and change in appetite; Denies: fever(s) Eyes: Denies: change in vision or blurry vision Card: Denies: chest pain, palpitations, irregular heart rhythm, lightheadedness, syncope or dyspnea on exertion Resp: Denies: dyspnea, productive cough or pain on inspiration GI: Reports: abdominal pain (Left lower quadrant), nausea and constipation; Denies: vomiting, hematemesis, belching, hematochezia or melena : Denies: flank pain or dysuria Musc: Reports: back pain; Denies: neck pain, extremity pain, extremity swelling, joint pain or joint swelling Skin/Breast: Denies: rash Neuro: Denies: headache(s), numbness in extremities, weakness in extremities, sensory changes or dizziness PFSH ED PFSH: Medical History HTN (hypertension), benign Surgical History History of hysterectomy Family History Other Cancer Diabetes Stroke Social History Smoking and tobacco/nicotine status: never used tobacco/nicotine Alcohol intake: never Substance/Drug Use: never Household members: spouse Housing: House Marital status: Physical Exam Const: COMMON NORMALS: no acute distress, average body habitus, patient oriented x3, no limitations, healthy appearing, alert and well nourished Resp: COMMON NORMALS: normal respiratory effort and clear to auscultation bilaterally AUSCULTATION: clear to auscultation bilaterally Cardio: COMMON NORMALS: regular rate and regular rhythm RATE: regular rate RHYTHM: regular rhythm GI: COMMON NORMALS: Normal to inspection, nondistended, normoactive bowel sounds present, Soft to palpation, No hepatosplenomegaly present and no masses INSPECTION: Yes normal to inspection AUSCULTATION: Yes normoactive bowel sounds PALPATION: Yes Soft to palpation, Yes Tenderness to palpation present (GI) (mild diffusely-non surgical exam), No Guarding due to palpation present (GI), No Rigid due to palpation and Yes No hepatosplenomegaly present RECTAL EXAM: other (few non-thrombosed external hemorrhoids vs skin tags) OTHER: very large amount of soft soiled stool present with rectal inspection : COMMON NORMALS: Yes no CVA tenderness BLADDER/KIDNEY EXAM: Yes no CVA tenderness Back/Pelvis: COMMON NORMALS: no CVA tenderness, thoracic and lumbar spine normal to inspection, no thoracic nor lumbar tenderness, thoraco-lumbar ROM normal and straight leg raise negative bilaterally OTHER: mild pain across lower back Extremity: COMMON NORMALS: capillary refill normal, no clubbing, cyanosis or edema, no calf tenderness and no pedal edema GENERAL: Yes normal exam except as noted Neuro: COMMON NORMALS: patient oriented x3, moves all extremities, no focal motor deficits and no sensory deficits noted SENSORIUM/ORIENTATION: Yes alert Skin: COMMON NORMALS: no rashes or lesions noted GENERAL SKIN EXAM: no rashes or lesions noted Course ED course: Patient had episode during straining/bowel movement where she apparently had vasovagal episode and became unresponsive with weak/thready pulse temporarily. She was responsive to pain stimuli. Patient was placed on oxygen, will obtain EKG, vitals stable/bradycardic that improved after several minutes Vital Signs: Vital signs: Vital Signs Temperature 98.4 F 10/25/24 04:00 Pulse Rate 78 10/25/24 05:58 Respiratory Rate 18 10/25/24 04:00 Blood Pressure 146/75 10/25/24 04:00 Pulse Oximetry 96 10/25/24 04:00 Oxygen Delivery Me thod Room Air 10/25/24 04:00 MDM - Back Pain/Injury Medical Decision Making Patient is an 88-year-old female here for complaints of constipation, back, and abdominal pain. She was just seen here a few days ago for similar symptoms. She had a normal CT scan at that visit. She states she has yet to have a bowel movement since then. She is still passing flatulence. No vomiting. She overall appears weak. She has no complaints of numbness/tingling/loss of sensation to legs. Blood work today showing low normal white count. She does have worsening hyponatremia-today at 122. UA does not appear infected. XR of her abdomen does not look suspicious for an obstruction. I did not feel we needed repeat CT imaging at this time. Patient had vasovagal episode during bowel movement straining here. Patient appears too weak to go home and care for herself. She is agreeable to come into the hospital. Medical Records I reviewed the patient's medical records. Labs I reviewed the patient's lab results. 10/25/24 00:25 10/25/24 00:25 Radiology Impressions Abdomen X-Ray 10/24/24 12:26 IMPRESSION: 1. There is a 1.5 x 1 cm radiopaque density superimposed on the left renal shadow. Finding could represent a left renal stone. 2. Bowel-gas pattern is nonspecific. Carotid Doppler Study 10/24/24 16:35 IMPRESSION: 1. Findings suggestive of a 50-69% stenosis involving the right proximal ICA. 2. No hemodynamically significant stenosis on the left. REFERENCES: SRU CRITERIA. The degree of internal carotid artery stenosis is based on criteria defined by the Society of Radiologists in Ultrasound (SRU). Normal is no stenosis. Mild is less than 50% stenosis. Moderate is 50-69% stenosis. Severe is greater than 69% stenosis to near occlusion. Near occlusion is a markedly narrowed lumen. Total occlusion is no detectable patent lumen. Lumbar Spine CT 10/24/24 16:35 IMPRESSION: 1. No identified acute lumbosacral spine pathology. 2. Osteophyte formation arising from the anterior left facet at L2-L3 with asymmetrical narrowing of the left lateral recess, unchanged. Narrowing of the central canal at L2-L3 to 6 mm, unchanged. 3. Moderate to severe lumbosacral spondylosis with grade 1 anterolisthesis at L4-L5. Abdomen/Pelvis CT 10/24/24 16:48 IMPRESSION: 1. Redemonstrated numerous bilateral renal cortical and parapelvic cysts measuring up to 4.4 cm in the lower pole of the right kidney. 2. Nonobstructing 11 mm left renal stone. Punctate left lower pole renal stone. 3. No evidence of ureteral calculi or obstructive uropathy. 4. No evidence of acute abdominal or pelvic process. Laboratory Results WBC 6.25 10^3/uL (3.29-11.43) 10/24/24 13:11 RBC 4.27 10^6/uL (3.85-5.65) 10/24/24 13:11 Hgb 12.80 g/dL (11.27-16.99) 10/24/24 13:11 Hct 36.0 % (36-47) 10/24/24 13:11 MCV 84.3 fl (85-98) L 10/24/24 13:11 MCH 30.0 pg (27-33) 10/24/24 13:11 MCHC 35.6 g/dL (30-55) 10/24/24 13:11 RDW 12.8 % (12.1-15.1) 10/24/24 13:11 Plt Count 198 10^3/cmm (157-399) 10/24/24 13:11 MPV 9.5 fL (7.4-10.4) 10/24/24 13:11 Neut % (Auto) 71.8 % 10/24/24 13:11 Lymph % (Auto) 19.5 % 10/24/24 13:11 [place] % (Auto) 7.7 % 10/24/24 13:11 Eos % (Auto) 0.2 % 10/24/24 13:11 Baso % (Auto) 0.3 % 10/24/24 13:11 Neut # (Auto) 4.49 10^3/uL (1.8-7.7) 10/24/24 13:11 Lymph # (Auto) 1.2 10^3/uL (0.8-4.8) 10/24/24 13:11 [place] # (Auto) 0.5 10^3/uL (0.2-0.9) 10/24/24 13:11 Eos # (Auto) 0.0 10^3/uL (0.0-0.8) 10/24/24 13:11 Baso # (Auto) 0.0 10^3/uL (0.0-0.1) 10/24/24 13:11 Nucleated RBC % (auto) 0 % 10/24/24 13:11 Nucleated RBCs # 0.0 /100WBC 10/24/24 13:11 Sodium 125 mmol/L (136-145) L 10/24/24 15:06 Potassium 4.1 mmol/L (3.5-5.1) 10/24/24 13:11 Chloride 89 mmol/L (98-107) L 10/24/24 13:11 Carbon Dioxide 19 mmol/L (22-29) L 10/24/24 13:11 Anion Gap 18.1 (5-19) 10/24/24 13:11 BUN 16 mg/dL (8-23) 10/24/24 13:11 Creatinine 0.8 mg/dL (0.5-0.9) 10/24/24 13:11 GFR Calculation Not Reportable 10/24/24 13:11 Glucose 117 mg/dL (65-115) H 10/24/24 13:11 Calculated Osmolality 256 mOsm/kg (285-295) L 10/24/24 13:11 Calcium 8.7 mg/dL (8.5-10.5) 10/24/24 13:11 Total Bilirubin 1.1 mg/dL (0.15-1.2) 10/24/24 13:11 AST 17 U/L (0-32) 10/24/24 13:11 ALT 10 U/L (0-33) 10/24/24 13:11 Alkaline Phosphatase 94 U/L (35-105) 10/24/24 13:11 Troponin T Baseline 16 ng/L (0-10) H 10/24/24 13:11 Troponin T 120 Minute 16.07 ng/L (0-10) H 10/24/24 15:06 Delta Troponin T 0.07 ABS# (0-10) 10/24/24 15:06 Total Protein 6.7 g/dL (6.6-8.7) 10/24/24 13:11 Albumin 3.9 g/dL (3.5-5.2) 10/24/24 13:11 Globulin 2.8 g/dL (1.3-4.6) 10/24/24 13:11 Urine Color Dark yellow (Yellow) A 10/24/24 13:17 Urine Appearance Clear (CLEAR) 10/24/24 13:17 Urine pH 8.5 (5-7) A 10/24/24 13:17 Ur Specific [place] 1.011 (1.005-1.030) 10/24/24 13:17 Urine Protein Negative (Negative) 10/24/24 13:17 Urine Glucose (UA) Negative (Normal) 10/24/24 13:17 Urine Ketones 1+ (Negative) H 10/24/24 13:17 Urine Blood Negative (Negative) 10/24/24 13:17 Urine Nitrate Negative (Negative) 10/24/24 13:17 Urine Bilirubin Negative (Negative) 10/24/24 13:17 Urine Urobilinogen 1.0 mg/dL (Negative) 10/24/24 13:17 Ur Leukocyte Esterase Negative (Negative) 10/24/24 13:17 Urine RBC 0-2 /hpf (0-2) 10/24/24 13:17 Urine WBC 0-5 /hpf (0-5) 10/24/24 13:17 Ur Squamous Epith Cells 0-5 /hpf (0-5) 10/24/24 13:17 Amorphous Sediment Not Reportable 10/24/24 13:17 Urine Bacteria None seen /hpf (NONE) 10/24/24 13:17 Hyaline Casts 0.81 /lpf 10/24/24 13:17 All radiology interpretation(s) finalized by discharge Discharge Plan Discharge Patient Disposition: Placed in Observation Admit Provider: Deanna Lauren Clinical Impression: Acute hyponatremia, Vasovagal syncope Constipation Qualifiers: Constipation type: unspecified constipation type Qualified Code(s): K59.00 - Constipation, unspecified Low back pain Qualifiers: Chronicity: acute Back pain laterality: right Sciatica presence: without sciatica Qualified Code(s): M54.50 - Low back pain, unspecified Coding Level of Care Code ED [employer] Head for Chg Fwd Documented by User: Jase Meade DO 10/25/24 06:29 HPI - Back Pain/Injury General: Chief Complaint: Back Pain/Injury Stated Complaint: Back Pain Time Seen by Provider: 10/24/24 11:57 Related Data Home Medications ?Medication ?Instructions ?Recorded ?Confirmed vit C 250 mg-E 90 mg-zinc 40 1 tab PO BID 07/23/21 10/25/24 mg-copper 1 ou-hpipmb-swywnp chew tablet (PreserVision AREDS-2) amitriptyline 10 mg tablet 20 mg PO DAILY 10/25/24 10/25/24 gabapentin 300 mg capsule 300 mg PO BID 10/25/24 10/25/24 hydrocodone 5 mg-acetaminophen 325 1 tab PO BEDTIME PRN Severe Pain 10/25/24 10/25/24 mg tablet (Scale Score 7-10) irbesartan 300 mg tablet 300 mg PO DAILY 10/25/24 10/25/24 tramadol 50 mg tablet 50 mg PO BID PRN pain 10/25/24 10/25/24 Previous Rx's ?Medication ?Instructions ?Recorded amlodipine 10 mg tablet 10 mg PO QDAY 90 days #90 tabs 12/22/21 fluticasone propionate 50 2 spray intranasal BID #16 grams 03/19/22 mcg/actuation nasal spray,suspension (Allergy Relief (fluticasone)) magnesium citrate 300 ml PO DAILY PRN constipation 10/20/24 #296 mL sennosides 8.6 mg-docusate sodium 1 tab-cap PO BID PRN constipation 10/20/24 50 mg tablet (Senna with Docusate #20 tabs Sodium) Allergies Allergy/AdvReac Type Severity Reaction Status Date / Time No Known Allergies Allergy Verified 08/14/22 08:52 PFS ED PFSH: Medical History HTN (hypertension), benign Surgical History History of hysterectomy Family History Other Cancer Diabetes Stroke Social History Smoking and tobacco/nicotine status: never used tobacco/nicotine Alcohol intake: never Substance/Drug Use: never Household members: spouse Housing: House Marital status: Course Vital Signs: Vital signs: Vital Signs Temperature 98.4 F 10/25/24 04:00 Pulse Rate 78 10/25/24 05:58 Respiratory Rate 18 10/25/24 04:00 Blood Pressure 146/75 10/25/24 04:00 Pulse Oximetry 96 10/25/24 04:00 Oxygen Delivery Me thod Room Air 10/25/24 04:00 MDM - Back Pain/Injury Medical Decision Making Patient is an 88-year-old female here for complaints of constipation, back, and abdominal pain. She was just seen here a few days ago for similar symptoms. She had a normal CT scan at that visit. She states she has yet to have a bowel movement since then. She is still passing flatulence. No vomiting. She overall appears weak. She has no complaints of numbness/tingling/loss of sensation to legs. Blood work today showing low normal white count. She does have worsening hyponatremia-today at 122. UA does not appear infected. XR of her abdomen does not look suspicious for an obstruction. I did not feel we needed repeat CT imaging at this time. Patient had vasovagal episode during bowel movement straining here. Patient appears too weak to go home and care for herself. She is agreeable to come into the hospital. Chart reviewed and patient discussed with midlevel. Agree with assessment and plan. Labs 10/25/24 00:25 10/25/24 00:25 Radiology Impressions Abdomen X-Ray 10/24/24 12:26 IMPRESSION: 1. There is a 1.5 x 1 cm radiopaque density superimposed on the left renal shadow. Finding could represent a left renal stone. 2. Bowel-gas pattern is nonspecific. Carotid Doppler Study 10/24/24 16:35 IMPRESSION: 1. Findings suggestive of a 50-69% stenosis involving the right proximal ICA. 2. No hemodynamically significant stenosis on the left. REFERENCES: SRU CRITERIA. The degree of internal carotid artery stenosis is based on criteria defined by the Society of Radiologists in Ultrasound (SRU). Normal is no stenosis. Mild is less than 50% stenosis. Moderate is 50-69% stenosis. Severe is greater than 69% stenosis to near occlusion. Near occlusion is a markedly narrowed lumen. Total occlusion is no detectable patent lumen. Lumbar Spine CT 10/24/24 16:35 IMPRESSION: 1. No identified acute lumbosacral spine pathology. 2. Osteophyte formation arising from the anterior left facet at L2-L3 with asymmetrical narrowing of the left lateral recess, unchanged. Narrowing of the central canal at L2-L3 to 6 mm, unchanged. 3. Moderate to severe lumbosacral spondylosis with grade 1 anterolisthesis at L4-L5. Abdomen/Pelvis CT 10/24/24 16:48 IMPRESSION: 1. Redemonstrated numerous bilateral renal cortical and parapelvic cysts measuring up to 4.4 cm in the lower pole of the right kidney. 2. Nonobstructing 11 mm left renal stone. Punctate left lower pole renal stone. 3. No evidence of ureteral calculi or obstructive uropathy. 4. No evidence of acute abdominal or pelvic process. Laboratory Results WBC 6.25 10^3/uL (3.29-11.43) 10/24/24 13:11 RBC 4.27 10^6/uL (3.85-5.65) 10/24/24 13:11 Hgb 12.80 g/dL (11.27-16.99) 10/24/24 13:11 Hct 36.0 % (36-47) 10/24/24 13:11 MCV 84.3 fl (85-98) L 10/24/24 13:11 MCH 30.0 pg (27-33) 10/24/24 13:11 MCHC 35.6 g/dL (30-55) 10/24/24 13:11 RDW 12.8 % (12.1-15.1) 10/24/24 13:11 Plt Count 198 10^3/cmm (157-399) 10/24/24 13:11 MPV 9.5 fL (7.4-10.4) 10/24/24 13:11 Neut % (Auto) 71.8 % 10/24/24 13:11 Lymph % (Auto) 19.5 % 10/24/24 13:11 [place] % (Auto) 7.7 % 10/24/24 13:11 Eos % (Auto) 0.2 % 10/24/24 13:11 Baso % (Auto) 0.3 % 10/24/24 13:11 Neut # (Auto) 4.49 10^3/uL (1.8-7.7) 10/24/24 13:11 Lymph # (Auto) 1.2 10^3/uL (0.8-4.8) 10/24/24 13:11 [place] # (Auto) 0.5 10^3/uL (0.2-0.9) 10/24/24 13:11 Eos # (Auto) 0.0 10^3/uL (0.0-0.8) 10/24/24 13:11 Baso # (Auto) 0.0 10^3/uL (0.0-0.1) 10/24/24 13:11 Nucleated RBC % (auto) 0 % 10/24/24 13:11 Nucleated RBCs # 0.0 /100WBC 10/24/24 13:11 Sodium 125 mmol/L (136-145) L 10/24/24 15:06 Potassium 4.1 mmol/L (3.5-5.1) 10/24/24 13:11 Chloride 89 mmol/L (98-107) L 10/24/24 13:11 Carbon Dioxide 19 mmol/L (22-29) L 10/24/24 13:11 Anion Gap 18.1 (5-19) 10/24/24 13:11 BUN 16 mg/dL (8-23) 10/24/24 13:11 Creatinine 0.8 mg/dL (0.5-0.9) 10/24/24 13:11 GFR Calculation Not Reportable 10/24/24 13:11 Glucose 117 mg/dL (65-115) H 10/24/24 13:11 Calculated Osmolality 256 mOsm/kg (285-295) L 10/24/24 13:11 Calcium 8.7 mg/dL (8.5-10.5) 10/24/24 13:11 Total Bilirubin 1.1 mg/dL (0.15-1.2) 10/24/24 13:11 AST 17 U/L (0-32) 10/24/24 13:11 ALT 10 U/L (0-33) 10/24/24 13:11 Alkaline Phosphatase 94 U/L (35-105) 10/24/24 13:11 Troponin T Baseline 16 ng/L (0-10) H 10/24/24 13:11 Troponin T 120 Minute 16.07 ng/L (0-10) H 10/24/24 15:06 Delta Troponin T 0.07 ABS# (0-10) 10/24/24 15:06 Total Protein 6.7 g/dL (6.6-8.7) 10/24/24 13:11 Albumin 3.9 g/dL (3.5-5.2) 10/24/24 13:11 Globulin 2.8 g/dL (1.3-4.6) 10/24/24 13:11 Urine Color Dark yellow (Yellow) A 10/24/24 13:17 Urine Appearance Clear (CLEAR) 10/24/24 13:17 Urine pH 8.5 (5-7) A 10/24/24 13:17 Ur Specific [place] 1.011 (1.005-1.030) 10/24/24 13:17 Urine Protein Negative (Negative) 10/24/24 13:17 Urine Glucose (UA) Negative (Normal) 10/24/24 13:17 Urine Ketones 1+ (Negative) H 10/24/24 13:17 Urine Blood Negative (Negative) 10/24/24 13:17 Urine Nitrate Negative (Negative) 10/24/24 13:17 Urine Bilirubin Negative (Negative) 10/24/24 13:17 Urine Urobilinogen 1.0 mg/dL (Negative) 10/24/24 13:17 Ur Leukocyte Esterase Negative (Negative) 10/24/24 13:17 Urine RBC 0-2 /hpf (0-2) 10/24/24 13:17 Urine WBC 0-5 /hpf (0-5) 10/24/24 13:17 Ur Squamous Epith Cells 0-5 /hpf (0-5) 10/24/24 13:17 Amorphous Sediment Not Reportable 10/24/24 13:17 Urine Bacteria None seen /hpf (NONE) 10/24/24 13:17 Hyaline Casts 0.81 /lpf 10/24/24 13:17 Discharge Plan Discharge Patient Disposition: Placed in Observation Admit Provider: Deanna Lauren Clinical Impression: Acute hyponatremia, Vasovagal syncope Constipation Qualifiers: Constipation type: unspecified constipation type Qualified Code(s): K59.00 - Constipation, unspecified Low back pain Qualifiers: Chronicity: acute Back pain laterality: right Sciatica presence: without sciatica Qualified Code(s): M54.50 - Low back pain, unspecified Coding Level of Care Code ED [employer] Head for Marlee Godfrey
--- NOTE | 2024-10-24 12:26 | XRR_ITS ---
PROCEDURE INFORMATION: Exam: XR Abdomen Exam date and time: 10/24/2024 1:14 PM Age: 88 years old Clinical indication: Constipation; Additional info: Constipation/abdominal and back pain TECHNIQUE: Imaging protocol: Radiologic exam of the abdomen. Views: 2 Views. Upright and supine views. COMPARISON: CT abdomen pelvis w con* [id number] 10/20/2024 5:41 AM FINDINGS: Gastrointestinal tract: Bowel-gas pattern is nonspecific. No overly distended small bowel loop. Intraperitoneal space: No free intraperitoneal air. Bones/joints: Unremarkable for age. Other findings: There is a 1.5 x 1 cm radiopaque density superimposed on the left renal shadow. XR/XR abdomen min 2V [id number] IMPRESSION: 1. There is a 1.5 x 1 cm radiopaque density superimposed on the left renal shadow. Finding could represent a left renal stone. 2. Bowel-gas pattern is nonspecific.
[2024-10-24 13:21] LABS: Bilirubin Urine Negative (Negative); Blood Urine Negative (Negative); Glucose Urine UA Negative (Normal); Ketones Urine 1+ (Negative); Leukocyte Esterase Urine Negative (Negative); Nitrate Urine Negative (Negative); Protein Urine Negative (Negative); Specific Gravity, Urine 1.011 (1.005-1.030); Urine Appearance Clear (CLEAR); Urine Color Dark Yellow (Yellow); pH Urine 8.5 (5-7)
[2024-10-24 13:23] LABS: Basophils % 0.3 %; Eosinophils % 0.2 %; Lymphocytes # 1.2 10^3/uL (0.8-4.8); Lymphocytes % 19.5 %; Mean Corpuscular HGB Conc 35.6 g/dL (30-55); Mean Corpuscular Volume 84.3 fl (85-98); Mean Platelet Volume 9.5 fL (7.4-10.4); Monocytes # 0.5 10^3/uL (0.2-0.9); Monocytes % 7.7 %; Neutrophils # 4.49 10^3/uL (1.8-7.7); Neutrophils % 71.8 %; Nucleated Red Blood Cells % 0 %; Platelet Count 198 10^3/cmm (157-399); Red Blood Count 4.27 10^6/uL (3.85-5.65); Red Cell Distribution Width 12.8 % (12.1-15.1); White Blood Count 6.25 10^3/uL (3.29-11.43)
[2024-10-24 13:24] LABS: Add Urine Microscopic? YES; Bacteria Urine None Seen /hpf; Hyaline Casts Urine 0.81 /lpf; RBC Urine 0-2 /hpf (0-2); Squamous Epithelial Cell Urine 0-5 /hpf (0-5); WBC Urine 0-5 /hpf (0-5)
[2024-10-24 13:38] LABS: Add Urine Culture? No; UA Slide Review UA Slide Review Perf
[2024-10-24 13:41] LABS: Alanine Aminotransferase 10 U/L (0-33); Albumin Level 3.9 g/dL (3.5-5.2); Alkaline Phosphatase 94 U/L (35-105); Aspartate Amino Transferase 17 U/L (0-32); Blood Urea Nitrogen 16 mg/dL (8-23); Calcium 8.7 mg/dL (8.5-10.5); Carbon Dioxide 19 mmol/L (22-29); Chloride 89 mmol/L (98-107); Globulin 2.8 g/dL (1.3-4.6); Glucose 117 mg/dL (65-115); Osmolality Calculated 256 mOsm/kg (285-295); Sodium 122 mmol/L (136-145); Total Bilirubin 1.1 mg/dL (0.15-1.2); Total Protein 6.7 g/dL (6.6-8.7)
[2024-10-24 13:46] LABS: Anion Gap 18.1 (5-19); Potassium 4.1 mmol/L (3.5-5.1)
[2024-10-24] MEDS: sodium chloride 0.9% 500 ML IV (14:20)
[2024-10-24 14:41] LABS: Troponin(5th) Baseline 16 ng/L (0-10)
--- NOTE | 2024-10-24 15:19 | PC.NURSE ---
pt bladder scan completed by this nurse, 11cc showed. Hospitalist in room aware. Barby NAVARRO aware.
[2024-10-24 15:30] LABS: Troponin 5 2HR 16.07 ng/L (0-10); Troponin 5 2HR Delta 0.07 ABS# (0-10)
--- NOTE | 2024-10-24 16:13 | ECG_ITS ---
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 Measurements Intervals [place] Rate: 99 P: 40 [place]: 155 QRS: 35 QRSD: 85 T: 17 QT: 359 QTc: 462 Interpretive Statements SINUS RHYTHM LOW QRS VOLTAGE IN PRECORDIAL LEADS [QRS DEFLECTION < 1.0 mV IN CHEST LEADS] Compared to ECG 10/24/2024 14:16:09 Low QRS voltage now present Sinus arrhythmia no longer present Prolonged QT interval no longer present Electronically Signed On 10-25-2024 22:17:26 CDT by Elke Rodriguez M.D. [email or web address]
--- NOTE | 2024-10-24 16:35 | USR_ITS ---
PROCEDURE INFORMATION: Exam: US Duplex Bilateral Extracranial Arteries; Complete; Carotid Arteries Exam date and time: 10/24/2024 5:59 PM Age: 88 years old Clinical indication: Syncope and collapse TECHNIQUE: Imaging protocol: Real-time duplex ultrasound scan of the bilateral extracranial arteries combining farley scale, color Doppler and spectral waveform analysis with image documentation. Complete exam. Exam focused on the carotid arteries. COMPARISON: CT head wo con* [id number] 07/13/2021 10:19 PM FINDINGS: Right common carotid artery: Scattered plaque. No occlusion or stenosis. Waveforms are normal. Right internal carotid artery: Scattered plaque. Elevated velocity involving the right proximal ICA measuring 219 cm/s.. No occlusion or stenosis. Waveforms are normal. Right ICA/CCA ratio: Abnormal right ICA to CCA ratio of 2.9. Right external carotid artery: No stenosis in the origin. Right vertebral artery: Unremarkable. Antegrade flow. Left common carotid artery: Scattered plaque. No occlusion or stenosis. Waveforms are normal. Left internal carotid artery: Scattered plaque. No occlusion or stenosis. Waveforms are normal. Left ICA/CCA ratio: Within normal limits. Left external carotid artery: No stenosis in the origin. Left vertebral artery: Unremarkable. Antegrade flow. The US/CV carotid duplex BI* [id number] IMPRESSION: 1. Findings suggestive of a 50-69% stenosis involving the right proximal ICA. 2. No hemodynamically significant stenosis on the left. REFERENCES: SRU CRITERIA. The degree of internal carotid artery stenosis is based on criteria defined by the Society of Radiologists in Ultrasound (SRU). Normal is no stenosis. Mild is less than 50% stenosis. Moderate is 50-69% stenosis. Severe is greater than 69% stenosis to near occlusion. Near occlusion is a markedly narrowed lumen. Total occlusion is no detectable patent lumen.
--- NOTE | 2024-10-24 16:35 | CTR_ITS ---
PROCEDURE INFORMATION: Exam: CT Lumbar Spine With Contrast Exam date and time: 10/24/2024 5:13 PM Age: 88 years old Clinical indication: Pain; Lumbago; Additional info: Back pain, persistent back pain x one week, constipation, ttp lumbar TECHNIQUE: Imaging protocol: Computed tomography of the lumbar spine with contrast. Radiation optimization: All CT scans at this facility use at least one of these dose optimization techniques: automated exposure control; mA and/or kV adjustment per patient size (includes targeted exams where dose is matched to clinical indication); or iterative reconstruction. Contrast material: OMNIPAQUE 350; Contrast volume: 100 ml; Contrast route: INTRAVENOUS (IV); COMPARISON: CT abdomen pelvis w con* [id number] 10/20/2024 5:41 AM RADIATION DOSE METRICS: Total DLP (mGy-cm): 533.3 FINDINGS: Bones/joints: Old deformity of the inferior endplate of T12, unchanged. Vertebral body heights otherwise maintained. Unchanged 6 mm anterolisthesis of L4 on L5. Alignment otherwise anatomic. Moderate to severe lower lumbar facet arthropathy, unchanged. Osteophyte formation arising from the anterior left facet at L2-L3 with asymmetrical narrowing of the left lateral recess, unchanged. Narrowing of the central canal at L2-L3 to 6 mm, unchanged. Kidneys and ureters: Nonobstructing calculus within the lower pole collecting system of the left kidney measuring 15 mm, unchanged. Numerous bilateral renal cortical and parapelvic cysts. No identified obstructing urolithiasis or hydronephrosis within the field of view. Soft tissues: Unremarkable. CT/CT lumbar spine w con [id number] IMPRESSION: 1. No identified acute lumbosacral spine pathology. 2. Osteophyte formation arising from the anterior left facet at L2-L3 with asymmetrical narrowing of the left lateral recess, unchanged. Narrowing of the central canal at L2-L3 to 6 mm, unchanged. 3. Moderate to severe lumbosacral spondylosis with grade 1 anterolisthesis at L4-L5.
--- NOTE | 2024-10-24 16:35 | USCV_ITS ---
Jaz Newell Age: 88 Gender: F : 1935 Exam Date: 10/24/2024 18:43 Ordering Phys: Deanna Lauren MD Technologist: VIOLET [place]am Location[place] [facility] [place]: syncope BP: 159 / 75 HR: 88 Rhythm: Sinus Technical Quality: Adequate MEASUREMENTS (Male / Female) Normal Values 2D ECHO LV Diastolic Diameter PLAX 3.6 cm 4.2 - 5.9 / 3.9 - 5.3 cm IVS Diastolic Thickness 1.7 cm 0.6 - 1.0 / 0.6 - 0.9 cm IVS Systolic Thickness 2.0 cm LVPW Diastolic Thickness 1.8 cm 0.6 - 1.0 / 0.6 - 0.9 cm LVPW Systolic Thickness 1.8 cm LVOT Diameter 1.7 cm LV Ejection Fraction 2D Teich 59.4 % LV Ejection Fraction MOD 4C 55.6 % LV Ejection Fraction MOD 2C 56.5 % LV Ejection Fraction 2C AL 57.0 % LA Diameter 3.3 cm Aorta at Sinotubular Diameter 2.9 cm IVC Diameter 0.9 cm M-MODE LA Ao Ratio MM 1.4 AV Cusp Separation MM 1.6 cm DOPPLER AV Peak Velocity 150.0 cm/s LVOT Peak Velocity 133.0 cm/s AV Area Cont Eq vti 2.3 cm squared AV Area Cont Eq pk 2.0 cm squared MV Peak Velocity 134.0 cm/s MV Area PHT 2.4 cm squared Mitral E to A Ratio 0.7 TR Peak Velocity 242.0 cm/s TR Peak Gradient 23.4 mmHg TV Peak E Velocity 32.0 cm/s PV Peak Velocity 142.0 cm/s FINDINGS Left Ventricle Normal left ventricular size and systolic function, EF 59%. Mild left ventricular hypertrophy. Grade I/IV diastolic dysfunction (abnormal relaxation filling pattern), normal to mildly elevated filling pressures. Right Ventricle The right ventricle is normal in size and function. Right Atrium The right atrium is normal in size. Left Atrium Moderately increased left atrial size. Mitral Valve Moderate to heavy mitral annular calcification Aortic Valve Thickened aortic valve. Trace to mild aortic valve regurgitation. Tricuspid Valve Trace tricuspid valve regurgitation. Pulmonic Valve No gross abnormalities noted Pericardium Normal pericardium without effusion. Aorta Normal aortic annulus size. IVC Inferior vena cava not visualized. CONCLUSIONS Normal left ventricular size and systolic function, EF 59%. Mild left ventricular hypertrophy. Grade I/IV diastolic dysfunction (abnormal relaxation filling pattern), normal to mildly elevated filling pressures. Moderately increased left atrial size. Moderate to heavy mitral annular calcification. Thickened aortic valve. Trace to mild aortic valve regurgitation. Trace tricuspid valve regurgitation. PA pressure could not be estimated because of the poor Doppler signals There is no pericardial effusion. There are no intracardiac masses. Compared to the study from 12/01/2018, there may not be a significant change. Dr Elke Rodriguez MD FACC (Electronically Signed) Final Date: 25 October 2024 16:16 S
--- NOTE | 2024-10-24 16:42 | P.HP_ITS ---
Providers/Chief Complaint 2 Admitting Physician: Deanna Lauren MD Primary Care Provider: Eve Meeks MD Chief Complaint: Back Pain History of Present Illness Jaz Newell is a 88 year old female With a past medical history of hypertension who was brought to the emergency room today by her due to abdominal and back pain. Patient was reportedly in her usual state of health about a month ago. She was diagnosed with neuropathy of the left hand following which she started on some opiates. I am unable to see opiates on her JUL. She was constipated thereafter. She had been using MiraLAX at home, however continued to have severe constipation and ultimately ended up in the emergency room on October 20, 2024. She was complaining of intense back pain at that time. CT of the abdomen and pelvis was performed which did not show any acute events, note was made of colonic constipation. Patient was discharged with laxatives. States that she did not have any improvement in symptoms and therefore presented back to the ER today. She denies any weakness in her lower extremities. States that she is passing gas but unable to have a bowel movement. She received an enema in the emergency room today and was using the commode trying to strain without much success. While attempting to get back in bed, she had an episode of witnessed syncope where she became very diaphoretic and needed to be held by 2 persons in the emergency room. She returned to bed and says that she is feeling pretty weak. She denies any nausea vomiting diarrhea. Abdomen is nontender. She states she has not had any difficulty urinating. CT of the abdomen and pelvis on October 20 had noted a left renal stone without any hydronephrosis or ureteric stones. Bladder scan did not reveal any urinary retention. She has been able to ambulate. Denies any chest pain dyspnea or palpitation during the syncopal event. No history of recurrent falls or syncope at home. No known cardiac history. Review of Systems 2 General: Reports: 10 or more systems reviewed and unremarkable except in HPI and below Const: Denies: fever(s), chills or body aches Eyes: Denies: change in vision, blurry vision or photophobia ENMT: Reports: hoarseness; Denies: throat pain, enlarged tonsils, odynophagia or nasal congestion Card: Denies: chest pain, palpitations, irregular heart rhythm, edema, swelling of feet/ankles, lightheadedness, pre-syncope, dyspnea on exertion or orthopnea Resp: Denies: dyspnea, productive cough, non-productive cough, wheezing, stridor, pain on inspiration, change in phlegm color, hemoptysis or chest congestion GI: Denies: abdominal pain, nausea, vomiting, hematemesis, coffee ground emesis, dysphagia, heartburn, diarrhea, constipation, GI cramping, change in stool character, hematochezia or melena : Denies: flank pain, difficulty voiding, dysuria, urinary frequency, urinary urgency, urinary hesitancy or hematuria Musc: Denies: neck pain, back pain, extremity pain, joint swelling, joint warmth or deformity Neuro: Denies: headache(s), numbness in extremities, weakness in extremities, sensory changes, difficulty walking, frequent falls, dizziness, vertigo, behavioral changes, Slurred speech present or seizure-like activity Psych: Denies: anxiety, depression, suicidal ideation or homicidal ideation Endo: Denies: polyuria, polydipsia, tired all the time, cold intolerance or hot flashes Shabbir/Lymph: Denies: easy bruising or easy bleeding Medications/Allergies Home Medications ?Medication ?Instructions ?Recorded ?Confirmed ?Last Taken ?Type vit C 250 mg-E 90 mg-zinc 40 1 tab PO BID 07/23/21 Unknown History mg-copper 1 [id number] chew tablet (PreserVision AREDS-2) amlodipine 10 mg tablet 10 mg PO QDAY 90 days #90 ta bs 12/22/21 08/14/22 Unknown Rx irbesartan 300 mg tablet 300 mg PO QDAY 90 days #90 t abs 03/02/22 08/14/22 Unknown Rx fluticasone propionate 50 2 spray intranasal BID #16 g kelvin 03/19/22 08/14/22 Unknown Rx mcg/actuation nasal spray,suspension (Allergy Relief (fluticasone)) imiquimod 5 % topical cream packet 1 applic topical ON CE 6 weeks #24 08/24/22 08/24/22 Unknown Rx ea magnesium citrate 300 ml PO DAILY PRN constipa tion 10/20/24 Unknown Rx #296 mL sennosides 8.6 mg-docusate sodium 1 tab-cap PO BID PRN constipation 10/20/24 Unknown Rx 50 mg tablet (Senna with Docusate #20 tabs Sodium) Allergies Allergy/AdvReac Type Severity Reaction Status Date / Time No Known Allergies Allergy Verified 08/14/22 08:52 PFSH Acute 2 PFSH: Medical History HTN (hypertension), benign Surgical History History of hysterectomy Family History Other Cancer Diabetes Stroke Social History Smoking and tobacco/nicotine status: never used tobacco/nicotine Alcohol intake: never Substance/Drug Use: never Household members: spouse Housing: House Marital status: Vitals/I&O/Wt Last Vital Signs Temp 98.2 F 10/24/24 11:57 Pulse 78 10/24/24 14:00 Resp 16 10/24/24 14:00 BP 164/87 10/24/24 14:00 Pulse Ox 96 10/24/24 14:00 O2 Del Method Room Air 10/24/24 12:02 10/24/24 10/24/24 10/24/24 06:59 14:59 22:59 Intake Total 500 / 500 Balance 500 / 500 Physical Exam 2 Narrative: General: No acute distress, AO x3 HEENT: PERRLA, pupils bilaterally equal and reactive, pallors not present Chest: Normal vesicular breath sounds, no added sounds, equal good air entry bilaterally CVS: S1-S2 regular, no murmurs, no tachycardia, no gallops, no rubs Abdomen: Soft, nontender, no organomegaly, bowel sounds present Neuro: No focal deficits, no facial deformity, AO x3, power 5/5 in all limbs Data 10/24/24 13:11 10/24/24 13:11 Other Labs: Radiology Impressions Abdomen X-Ray 10/24/24 12:26 IMPRESSION: 1. There is a 1.5 x 1 cm radiopaque density superimposed on the left renal shadow. Finding could represent a left renal stone. 2. Bowel-gas pattern is nonspecific. Laboratory Results WBC 6.25 10^3/uL (3.29-11.43) 10/24/24 13:11 RBC 4.27 10^6/uL (3.85-5.65) 10/24/24 13:11 Hgb 12.80 g/dL (11.27-16.99) 10/24/24 13:11 Hct 36.0 % (36-47) 10/24/24 13:11 MCV 84.3 fl (85-98) L 10/24/24 13:11 MCH 30.0 pg (27-33) 10/24/24 13:11 MCHC 35.6 g/dL (30-55) 10/24/24 13:11 RDW 12.8 % (12.1-15.1) 10/24/24 13:11 Plt Count 198 10^3/cmm (157-399) 10/24/24 13:11 MPV 9.5 fL (7.4-10.4) 10/24/24 13:11 Neut % (Auto) 71.8 % 10/24/24 13:11 Lymph % (Auto) 19.5 % 10/24/24 13:11 Sequoyah % (Auto) 7.7 % 10/24/24 13:11 Eos % (Auto) 0.2 % 10/24/24 13:11 Baso % (Auto) 0.3 % 10/24/24 13:11 Neut # (Auto) 4.49 10^3/uL (1.8-7.7) 10/24/24 13:11 Lymph # (Auto) 1.2 10^3/uL (0.8-4.8) 10/24/24 13:11 [place]oyah # (Auto) 0.5 10^3/uL (0.2-0.9) 10/24/24 13:11 Eos # (Auto) 0.0 10^3/uL (0.0-0.8) 10/24/24 13:11 Baso # (Auto) 0.0 10^3/uL (0.0-0.1) 10/24/24 13:11 Nucleated RBC % (auto) 0 % 10/24/24 13:11 Nucleated RBCs # 0.0 /100WBC 10/24/24 13:11 Sodium 122 mmol/L (136-145) L 10/24/24 13:11 Potassium 4.1 mmol/L (3.5-5.1) 10/24/24 13:11 Chloride 89 mmol/L (98-107) L 10/24/24 13:11 Carbon Dioxide 19 mmol/L (22-29) L 10/24/24 13:11 Anion Gap 18.1 (5-19) 10/24/24 13:11 BUN 16 mg/dL (8-23) 10/24/24 13:11 Creatinine 0.8 mg/dL (0.5-0.9) 10/24/24 13:11 GFR Calculation Not Reportable 10/24/24 13:11 Glucose 117 mg/dL (65-115) H 10/24/24 13:11 Calculated Osmolality 256 mOsm/kg (285-295) L 10/24/24 13:11 Calcium 8.7 mg/dL (8.5-10.5) 10/24/24 13:11 Total Bilirubin 1.1 mg/dL (0.15-1.2) 10/24/24 13:11 AST 17 U/L (0-32) 10/24/24 13:11 ALT 10 U/L (0-33) 10/24/24 13:11 Alkaline Phosphatase 94 U/L (35-105) 10/24/24 13:11 Troponin T Baseline 16 ng/L (0-10) H 10/24/24 13:11 Troponin T 120 Minute 16.07 ng/L (0-10) H 10/24/24 15:06 Delta Troponin T 0.07 ABS# (0-10) 10/24/24 15:06 Total Protein 6.7 g/dL (6.6-8.7) 10/24/24 13:11 Albumin 3.9 g/dL (3.5-5.2) 10/24/24 13:11 Globulin 2.8 g/dL (1.3-4.6) 10/24/24 13:11 Urine Color Dark yellow (Yellow) A 10/24/24 13:17 Urine Appearance Clear (CLEAR) 10/24/24 13:17 Urine pH 8.5 (5-7) A 10/24/24 13:17 Ur Specific [place] 1.011 (1.005-1.030) 10/24/24 13:17 Urine Protein Negative (Negative) 10/24/24 13:17 Urine Glucose (UA) Negative (Normal) 10/24/24 13:17 Urine Ketones 1+ (Negative) H 10/24/24 13:17 Urine Blood Negative (Negative) 10/24/24 13:17 Urine Nitrate Negative (Negative) 10/24/24 13:17 Urine Bilirubin Negative (Negative) 10/24/24 13:17 Urine Urobilinogen 1.0 mg/dL (Negative) 10/24/24 13:17 Ur Leukocyte Esterase Negative (Negative) 10/24/24 13:17 Urine RBC 0-2 /hpf (0-2) 10/24/24 13:17 Urine WBC 0-5 /hpf (0-5) 10/24/24 13:17 Ur Squamous Epith Cells 0-5 /hpf (0-5) 10/24/24 13:17 Amorphous Sediment Not Reportable 10/24/24 13:17 Urine Bacteria None seen /hpf (NONE) 10/24/24 13:17 Hyaline Casts 0.81 /lpf 10/24/24 13:17 A&P Assessment and plan (1) Constipation: Patient with his recent history as above Reportedly patient has been taking opiates at home for back pain and left hand pain, however she is unable to tell me which agent and at what dose of opiates she has been taking. We will attempt to obtain this from the pharmacy. She was in the emergency room no acute intra-abdominal process was found. She has severe colonic constipation. Today she was given an enema following which she had a syncopal episode. Will start her currently on lactulose 10 g every 12 hours. To try mag citrate next if no response with lactulose. (2) Acute hyponatremia: Hyponatremia with sodium at 122. Unclear etiology at this point She has received an IV fluid bolus in the ER. Will continue normal saline at 75 cc an hour and obtain sodium check every 8 hours. (3) Low back pain: Persistent low back pain, source may be related to constipation however given its persistent and no significant improvement with pain medication she was taking at home, would like to rule out any lumbar pathology. There is tenderness to palpation over the lower lumbar spine. CT of the lumbar spine has been ordered to assess for any fracture, nerve root compression picture may be potentially contributing. She does complain of constipation however no urinary retention or other urinary symptoms are reported. No lower extremity weakness (4) Syncope: Syncope, likely vasovagal in the setting of attempting to strain at defecation. EKG and troponin series has been ordered. Baseline at 16, no significant uptrend at 2 hours. EKG with sinus rhythm and sinus arrhythmia. Continue 6-hour trend on the troponin, EKG series. Check carotid Doppler, echocardiogram (5) HTN (hypertension), benign: Continue home medication amlodipine 10 mg daily Plan DVT prophylaxis: Low risk Full code PDMP PDMP Reviewed: Not Reviewed Attestations 2 Medical Necessity Statement*: Observation for above issues. Less than 2 midnight stay is currently anticipated Coding Level of Care Code Acute Code for Chg Fwd Diagnoses Constipation K59.00 Constipation type: unspecified constipation type Acute hyponatremia E87.1 Low back pain M54.50 Back pain laterality: right Chronicity: acute Sciatica presence: without sciatica Syncope R55 HTN (hypertension), benign I10
--- NOTE | 2024-10-24 16:48 | CTR_ITS ---
PROCEDURE INFORMATION: Exam: CT Abdomen And Pelvis Without Contrast Exam date and time: 10/24/2024 5:13 PM Age: 88 years old Clinical indication: Abdominal pain; Generalized; Additional info: Assess for pyelonephritis TECHNIQUE: Imaging protocol: Computed tomography of the abdomen and pelvis without contrast. Radiation optimization: All CT scans at this facility use at least one of these dose optimization techniques: automated exposure control; mA and/or kV adjustment per patient size (includes targeted exams where dose is matched to clinical indication); or iterative reconstruction. COMPARISON: CT abdomen pelvis w con* [id number] 10/20/2024 5:41 AM RADIATION DOSE METRICS: Total DLP (mGy-cm): 443.4 FINDINGS: Liver: Normal. No mass. Gallbladder and biliary ducts: Normal. No calcified stones. No ductal dilation. Pancreas: Normal. No ductal dilation. Spleen: Normal. No splenomegaly. Adrenal glands: Normal. No mass. Kidneys and ureters: Redemonstrated numerous bilateral renal cortical and parapelvic cysts measuring up to 4.4 cm in the lower pole of the right kidney. Nonobstructing 11 mm left renal stone. Punctate left lower pole renal stone. No evidence of ureteral calculi or obstructive uropathy. Stomach and bowel: Colonic diverticulosis is present without diverticulitis. Bowel has normal caliber. Appendix: No evidence of appendicitis. Intraperitoneal space: Unremarkable. No free air. No significant fluid collection. Vasculature: Aortoiliac atherosclerotic disease is seen without evidence of aneurysm. Lymph nodes: Unremarkable. No enlarged lymph nodes. Urinary bladder: Unremarkable as visualized. Reproductive: Unremarkable as visualized. Bones/joints: Degeneration related grade 1 anterolisthesis is present at L4/L5. No acute or suspicious osseous abnormality. Soft tissues: Unremarkable. CT/CT kidney stone [id number] IMPRESSION: 1. Redemonstrated numerous bilateral renal cortical and parapelvic cysts measuring up to 4.4 cm in the lower pole of the right kidney. 2. Nonobstructing 11 mm left renal stone. Punctate left lower pole renal stone. 3. No evidence of ureteral calculi or obstructive uropathy. 4. No evidence of acute abdominal or pelvic process.
[2024-10-24 17:07] LABS: Sodium 125 mmol/L (136-145)
[2024-10-24] MEDS: lactulose oral liq 20 gm/30 mL UDC 10 GM PO (18:18)
[2024-10-24] MEDS: sodium chloride 0.9% 1,000 ML 75 ML IV (18:19)
[2024-10-24] MEDS: acetaminophen 325 mg Tablet 650 MG PO (18:23)
[2024-10-24 19:45] LABS: Troponin 5 6HR 18.58 ng/L (0-10); Troponin 5 6HR Delta 2.58 ng/L (0-12)
--- NOTE | 2024-10-24 20:13 | ECG_ITS ---
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 Measurements Intervals [place] Rate: 65 P: 60 UT: 175 QRS: 48 QRSD: 89 T: 57 QT: 464 QTc: 485 Interpretive Statements SINUS RHYTHM WITH SINUS ARRHYTHMIA PROLONGED QT INTERVAL Compared to ECG 07/13/2021 22:11:58 Prolonged QT interval now present Electronically Signed On 10-25-2024 22:18:10 CDT by Elke Rodriguez M.D. [email or web address]
[2024-10-25] VITALS (7 sets, daily range): BP systolic 133–146; BP diastolic 66–75; PULSE 78–94; RESP 15–24; TEMP 36.3–37.2; O2SAT 92–96
[2024-10-25] MEDS: zolpidem 5 mg Tablet 2.5 MG PO (00:32)
[2024-10-25 00:53] LABS: Basophils % 0.4 %; Eosinophils % 0.5 %; Hematocrit 34.7 % (36-47); Lymphocytes # 1.3 10^3/uL (0.8-4.8); Lymphocytes % 16.2 %; Mean Corpuscular HGB Conc 34.9 g/dL (30-55); Mean Corpuscular Hemoglobin 29.7 pg (27-33); Mean Platelet Volume 9.9 fL (7.4-10.4); Monocytes # 0.8 10^3/uL (0.2-0.9); Monocytes % 9.3 %; Neutrophils # 5.94 10^3/uL (1.8-7.7); Neutrophils % 73.2 %; Nucleated Red Blood Cells % 0 %; Platelet Count 213 10^3/cmm (157-399); Red Blood Count 4.08 10^6/uL (3.85-5.65); Red Cell Distribution Width 12.9 % (12.1-15.1)
[2024-10-25 01:14] LABS: Sodium 128 mmol/L (136-145)
[2024-10-25 01:15] LABS: Alanine Aminotransferase 11 U/L (0-33); Albumin Level 3.4 g/dL (3.5-5.2); Alkaline Phosphatase 89 U/L (35-105); Anion Gap 20.5 (5-19); Aspartate Amino Transferase 16 U/L (0-32); Blood Urea Nitrogen 13 mg/dL (8-23); Calcium 8.5 mg/dL (8.5-10.5); Carbon Dioxide 16 mmol/L (22-29); Chloride 98 mmol/L (98-107); Creatinine Clr Calc Pharmacy 50.9665; Globulin 2.7 g/dL (1.3-4.6); Glucose 83 mg/dL (65-115); Magnesium 2.4 mg/dL (1.7-2.3); Osmolality Calculated 269 mOsm/kg (285-295); Potassium 4.5 mmol/L (3.5-5.1); Sodium 130 mmol/L (136-145); Total Bilirubin 0.9 mg/dL (0.15-1.2); Total Protein 6.1 g/dL (6.6-8.7)
[2024-10-25] MEDS: lactulose oral liq 20 gm/30 mL UDC 10 GM PO (04:55)
[2024-10-25] MEDS: sodium chloride 0.9% 1,000 ML 75 ML IV (07:50)
[2024-10-25 08:33] LABS: Sodium 128 mmol/L (136-145)
[2024-10-25] MEDS: amlodipine 10 mg Tablet PO (08:56)
[2024-10-25] MEDS: pantoprazole DR 40 mg Tablet PO (08:56)
--- NOTE | 2024-10-25 09:20 | PC.CHAP ---
Pastoral Care Encounter/Spiritual Assessment Type of Contact [] Declined team leader surgery visit [] Patient/Family/Request visit [] Outpatient visit [] Follow-up visit [] Physician referral [] Code/Alert [] Routine visit [] Staff referral [] Actively dying [] Patient sleeping [] Family support [] [] Out of room [] Palliative care [] [x] Receiving care in room [] Pre-surgical visit [] Trauma [] Long length of stay [] ICU visit [] Other: Relational/Emotional Strength [] Patient feels connected with others/family/visitors/staff [] Distress [] Loneliness/isolation [] Abandonment Spirituality of Patient [] Person of Jacquelyn [] Attends Religious of their Jacquelyn [] Believes in Prayer [] Reads Bible or Mormon materials [] There are Spiritual issues to be addressed Architecture Analyst Interventions [] Prayer [] Active listening [] Non-anxious presence [] Spiritual/emotional support [] Crisis/trauma care [] Spiritual counseling [] Bereavement support [] Provided bereavement packet [] Provided Bible/devotional materials [] Provided toy/stuffed animal, coloring book to patient or family member [] Provided Communion [] Anointing/[place] [] Salvation [] Completed spiritual assessment [] Other: Impact on Illness or Injury [] Angry [] Fearful [] Anxious [] Often cries [] Exhaustion [] Unable to work [] Unable to attend religion [] Unable to walk/stand [] Unable to read [] Unable to drive [] Unable to eat/drink [] Unable to sleep [] Unable to be with family [] Patient intubated [] Other: Summary Time spent with patient
--- NOTE | 2024-10-25 11:54 | PM.DCS ---
Discharge Providers Date of Admission: 10/24/24 16:26 Date of Discharge: October 25, 2024 Attending Provider at Admission: Deanna Lauren MD Attending Provider at Discharge: Deanna Lauren MD Primary Care Provider: Eve Meeks MD Diagnoses at Discharge Discharge Diagnosis (1) Constipation: Status: Acute Qualifiers: Constipation type: unspecified constipation type Qualified Code(s): K59.00 - Constipation, unspecified (2) Acute hyponatremia: Status: Acute (3) Low back pain: Status: Acute Qualifiers: Back pain laterality: right Chronicity: acute Sciatica presence: without sciatica Qualified Code(s): M54.50 - Low back pain, unspecified (4) Syncope: Status: Acute (5) HTN (hypertension), benign: Status: Chronic Reason for Visit Reason for Visit: Back Pain Brief History: 88F with PMH HTN presented to the hospital with c/o abdominal and back pain that had been going on at least the past 7-10 days. She had also been complaining of left hand pain related to neuropathy. She had bene on opiates over the past month for pain management. CT abdomen on a recent visit and from 10/24 did not show any acute abdominal abnormalities. CT back showed Osteophyte formation arising from the anterior left facet at L2-L3 with asymmetrical narrowing of the left lateral recess. Moderate to severe lumbosacral spondylosis with grade 1 anterolisthesis at L4-L5. Referred to ortho spine with these findings. Additionally while she was in the ER, she had an episode of syncope while getting off the commode. Further assessment showed no arrhythmias on telemetry, There was mildly elevated troponins, echocardiogram was obtained which is curently pending at time of writing this note. Carotid doppler shoed 50-69% Stenosis involving the right proximal RCA. She has been referred to vascular surgery for the same. Patient also had low NA of 122 on admission, may be related to poor po intake related to constipation. with iv hydration NA improved at 128. Po salt tablets have been added at discharge for 3 days. To f/up with PCP for recheck of NA. Her constipation improved with Lactulose 10mg BID. Patient instructed to maintain a daily regimen of stool softeners with additional lactulose as needed. She requested referral to new PCP in [place] and this was provided to her. Physical Exam Narrative: General: No acute distress, AO x3 HEENT: PERRLA, pupils bilaterally equal and reactive, pallors not present Chest: Normal vesicular breath sounds, no added sounds, equal good air entry bilaterally CVS: S1-S2 regular, no murmurs, no tachycardia, no gallops, no rubs Abdomen: Soft, nontender, no organomegaly, bowel sounds present Neuro: No focal deficits, no facial deformity, AO x3, power 5/5 in all limbs Discharge Data Studies Completed and Pending Completed Studies During Hospitalization Category Date Time Status CT abdomen renal stone [CT kidney stone [id number]] Routine Cat Scan 10/24/24 16:[address] lumbar spine w con [id number] Routine Cat Scan 10/24/24 16:35 Completed XR abdomen min 2V [id number] Stat Exams 10/24/24 12:26 Completed CV carotid duplex BI* [id number] Routine Ultrasound 10/24/24 16:35 Completed Pending at discharge Category Date Time Status CV. echo complete* [id number] Routine Ultrasound 10/24/24 16:35 Taken Radiology Impressions Abdomen X-Ray 10/24/24 12:26 IMPRESSION: 1. There is a 1.5 x 1 cm radiopaque density superimposed on the left renal shadow. Finding could represent a left renal stone. 2. Bowel-gas pattern is nonspecific. Carotid Doppler Study 10/24/24 16:35 IMPRESSION: 1. Findings suggestive of a 50-69% stenosis involving the right proximal ICA. 2. No hemodynamically significant stenosis on the left. REFERENCES: SRU CRITERIA. The degree of internal carotid artery stenosis is based on criteria defined by the Society of [employer]iologists in Ultras[employer] (SRU). Normal is no stenosis. Mild is less than 50% stenosis. Moderate is 50-69% stenosis. Severe is greater than 69% stenosis to near occlusion. Near occlusion is a markedly narrowed lumen. Total occlusion is no detectable patent lumen. Lumbar Spine CT 10/24/24 16:35 IMPRESSION: 1. No identified acute lumbosacral spine pathology. 2. Osteophyte formation arising from the anterior left facet at L2-L3 with asymmetrical narrowing of the left lateral recess, unchanged. Narrowing of the central canal at L2-L3 to 6 mm, unchanged. 3. Moderate to severe lumbosacral spondylosis with grade 1 anterolisthesis at L4-L5. Abdomen/Pelvis CT 10/24/24 16:48 IMPRESSION: 1. Redemonstrated numerous bilateral renal cortical and parapelvic cysts measuring up to 4.4 cm in the lower pole of the right kidney. 2. Nonobstructing 11 mm left renal stone. Punctate left lower pole renal stone. 3. No evidence of ureteral calculi or obstructive uropathy. 4. No evidence of acute abdominal or pelvic process. Laboratory Results WBC 8.10 10^3/uL (3.29-11.43) 10/25/24 00:25 RBC 4.08 10^6/uL (3.85-5.65) 10/25/24 00:25 Hgb 12.10 g/dL (11.27-16.99) 10/25/24 00:25 Hct 34.7 % (36-47) L 10/25/24 00:25 MCV 85.0 fl (85-98) 10/25/24 00:25 MCH 29.7 pg (27-33) 10/25/24 00:25 MCHC 34.9 g/dL (30-55) 10/25/24 00:25 RDW 12.9 % (12.1-15.1) 10/25/24 00:25 Plt Count 213 10^3/cmm (157-399) 10/25/24 00:25 MPV 9.9 fL (7.4-10.4) 10/25/24 00:25 Neut % (Auto) 73.2 % 10/25/24 00:25 Lymph % (Auto) 16.2 % 10/25/24 00:25 Terrell % (Auto) 9.3 % 10/25/24 00:25 Eos % (Auto) 0.5 % 10/25/24 00:25 Baso % (Auto) 0.4 % 10/25/24 00:25 Neut # (Auto) 5.94 10^3/uL (1.8-7.7) 10/25/24 00:25 Lymph # (Auto) 1.3 10^3/uL (0.8-4.8) 10/25/24 00:25 Terrell # (Auto) 0.8 10^3/uL (0.2-0.9) 10/25/24 00:25 Eos # (Auto) 0.0 10^3/uL (0.0-0.8) 10/25/24 00:25 Baso # (Auto) 0.0 10^3/uL (0.0-0.1) 10/25/24 00:25 Nucleated RBC % (auto) 0 % 10/25/24 00:25 Nucleated RBCs # 0.0 /100WBC 10/25/24 00:25 Sodium 128 mmol/L (136-145) L 10/25/24 08:06 Potassium 4.5 mmol/L (3.5-5.1) 10/25/24 00:25 Chloride 98 mmol/L (98-107) 10/25/24 00:25 Carbon Dioxide 16 mmol/L (22-29) L 10/25/24 00:25 Anion Gap 20.5 (5-19) H 10/25/24 00:25 BUN 13 mg/dL (8-23) 10/25/24 00:25 Creatinine 0.8 mg/dL (0.5-0.9) 10/25/24 00:25 GFR Calculation Not Reportable 10/25/24 00:25 Glucose 83 mg/dL (65-115) 10/25/24 00:25 Calculated Osmolality 269 mOsm/kg (285-295) L 10/25/24 00:25 Calcium 8.5 mg/dL (8.5-10.5) 10/25/24 00:25 Magnesium 2.4 mg/dL (1.7-2.3) H 10/25/24 00:25 Total Bilirubin 0.9 mg/dL (0.15-1.2) 10/25/24 00:25 AST 16 U/L (0-32) 10/25/24 00:25 ALT 11 U/L (0-33) 10/25/24 00:25 Alkaline Phosphatase 89 U/L (35-105) 10/25/24 00:25 Troponin T Baseline 16 ng/L (0-10) H 10/24/24 13:11 Troponin T 120 Minute 16.07 ng/L (0-10) H 10/24/24 15:06 Delta Troponin T 0.07 ABS# (0-10) 10/24/24 15:06 Troponin T Hi Sens 6Hr 18.58 ng/L (0-10) H 10/24/24 19:20 Troponin T Hi Sens 6Hr Delta 2.58 ng/L (0-12) 10/24/24 19:20 Total Protein 6.1 g/dL (6.6-8.7) L 10/25/24 00:25 Albumin 3.4 g/dL (3.5-5.2) L 10/25/24 00:25 Globulin 2.7 g/dL (1.3-4.6) 10/25/24 00:25 Urine Color Dark yellow (Yellow) A 10/24/24 13:17 Urine Appearance Clear (CLEAR) 10/24/24 13:17 Urine pH 8.5 (5-7) A 10/24/24 13:17 Ur Specific [place] 1.011 (1.005-1.030) 10/24/24 13:17 Urine Protein Negative (Negative) 10/24/24 13:17 Urine Glucose (UA) Negative (Normal) 10/24/24 13:17 Urine Ketones 1+ (Negative) H 10/24/24 13:17 Urine Blood Negative (Negative) 10/24/24 13:17 Urine Nitrate Negative (Negative) 10/24/24 13:17 Urine Bilirubin Negative (Negative) 10/24/24 13:17 Urine Urobilinogen 1.0 mg/dL (Negative) 10/24/24 13:17 Ur Leukocyte Esterase Negative (Negative) 10/24/24 13:17 Urine RBC 0-2 /hpf (0-2) 10/24/24 13:17 Urine WBC 0-5 /hpf (0-5) 10/24/24 13:17 Ur Squamous Epith Cells 0-5 /hpf (0-5) 10/24/24 13:17 Amorphous Sediment Not Reportable 10/24/24 13:17 Urine Bacteria None seen /hpf (NONE) 10/24/24 13:17 Hyaline Casts 0.81 /lpf 10/24/24 13:17 Vitals Last Vital Signs Temp 97.5 F L 10/25/24 08:00 Pulse 83 10/25/24 08:00 Resp 18 10/25/24 08:00 BP 141/74 10/25/24 08:00 Pulse Ox 96 10/25/24 08:00 O2 Del Method Room Air 10/25/24 08:00 Discharge Plan Discharge Patient Disposition: Home Condition: Stable Prescriptions: New Metamucil Fiber (aspartame) 3.4 gram powder in packet 3.4 g PO DAILY Qty: 30 0RF sodium chloride 1,000 mg tablet,soluble 1,000 mg PO DAILY Qty: 5 0RF lactulose 10 gram/15 mL Solution 10 g PO Q12H PRN (Reason: constipation) 30 Days Qty: 100 1RF Continued PreserVision AREDS-2 250-90-40-1 mg tablet,chewable 1 tab PO BID amlodipine 10 mg tablet 10 mg PO QDAY 90 Days Qty: 90 3RF fluticasone propionate [Allergy Relief (fluticasone)] 50 mcg/actuation spray,suspension 2 spray INTRANASAL BID Qty: 16 3RF Rx Instructions: administer into each nostril hydrocodone-acetaminophen 5-325 mg tablet 1 tab PO BEDTIME PRN (Reason: Severe Pain (Scale Score 7-10)) tramadol 50 mg tablet 50 mg PO BID PRN (Reason: pain ) amitriptyline 10 mg tablet 20 mg PO DAILY gabapentin 300 mg capsule 300 mg PO BID irbesartan 300 mg tablet 300 mg PO DAILY sennosides-docusate sodium [Senna with Docusate Sodium] 8.6-50 mg tablet 1 tab-cap PO BID PRN (Reason: constipation) Qty: 20 0RF magnesium citrate Solution 300 ml PO DAILY PRN (Reason: constipation) Qty: 296 0RF Referrals: Satish Hauser MD [Physician, Family Practice] Referral Note: new patient, establish care Boy Zuniga DO [Physician, Orthopedics] [facility] [Outside] Referral Note: ICA stenosis 50-69% Patient Instructions: Opioid Safety Discharge Attestations Time Spent in Discharge Care*: greater than 30 min Quality Metrics Clinical Quality Measures [ No reported AMI, CVA or VTE this stay] Coding Level of Care Code Acute Code for Chg Fwd Diagnoses Constipation K59.00 Constipation type: unspecified constipation type Acute hyponatremia E87.1 Low back pain M54.50 Back pain laterality: right Chronicity: acute Sciatica presence: without sciatica Syncope R55 HTN (hypertension), benign I10
[2024-10-25 15:29] LABS: Sodium 128 mmol/L (136-145)
== END 2024-10-25 17:43 | disposition home or self-care (01) ==
LOC: ER 14:51 → CSU 16:49
PROVIDERS: Admitting Provider Student in an Organized Health Care Education/Training Program; Emergency Provider Physician Assistant; PCP Family Medicine; Visit Provider Student in an Organized Health Care Education/Training Program
DX: K59.00 Constipation, unspecified (principal); I10 Essential (primary) hypertension; E87.1 Hypo-osmolality and hyponatremia; R55 Syncope and collapse; M54.50 Low back pain, unspecified; G62.9 Polyneuropathy, unspecified; Z79.899 Other long term (current) drug therapy; Z79.891 Long term (current) use of opiate analgesic
CPT/HCPCS: 36415; 51798; 72132; 74019; 74176; 80053; 81001; 83735; 84295; 84484; 85025; 93005; 93306; 93880; 96360; 99285; A9270; G0378; J7030; J7040; J9999

== ENCOUNTER → 2024-10-31 14:35 | Outpatient (BNVA) | payer MEDICARE, SELFPAY | PROVIDERS: PCP Family Medicine; Visit Provider Orthopaedic Surgery | DX: M43.16 Spondylolisthesis, lumbar region (principal); M54.50 Low back pain, unspecified; M54.2 Cervicalgia; M54.9 Dorsalgia, unspecified | CPT/HCPCS: 72050; 72110; 99204 ==

== ENCOUNTER 2024-11-21 20:01 | Emergency (ER) | payer MEDICARE, SELFPAY ==
--- NOTE | 2024-11-21 20:06 | ECG_ITS ---
[facility]: 2024-11-21 Pat Name: Jaz Newell Department: Room: Gender: Female [employer]: : 1935 Requested By: Taina Pinto Order Number: [id number] Reading MD: MIKAYLA DAVIES Measurements Intervals [place] Rate: 89 P: 81 IA: 159 QRS: 75 QRSD: 83 T: 49 QT: 356 QTc: 434 Interpretive Statements SINUS RHYTHM Compared to ECG 10/24/2024 17:40:05 No significant changes Electronically Signed On 11-21-2024 21:33:38 CDT by MIKAYLA DAVIES [email or web address]
--- OUTSIDE RECORDS SUMMARY | 2024-11-21 20:11 | XMS_ITS | Data Portability ---
Author Organization [facility] Address [address] [address] Care Team Providers Care Community Health Representative Name Role Phone EVE MEEKS Primary Care Provider Assessment No assessment recorded. Plan of Treatment Reminders Order Date Submit Date Provider Last Modified By Organization Details Last Modified Time Details Appointments None recorded. Lab CMP, serum or plasma 2024 025 [facility], [address] [facility], [address], [place], [address], 17:36:40 CBC 2024 025 [facility], [address] [facility] [address], [place], [address], 17:09:42 TSH, serum or plasma 2024 025 [email or web address] [facility], [address] [facility], [address], [place], [address], 5 07:57:03 ferritin, serum or plasma 2024 025 [email or web address] [employer] [facility], [address], [address], [place], [address], 5 07:57:03 folate, serum 2024 025 [email or web address] [employer] [facility], [address] [facility] [address], [address], [place], [address], 5 07:57:03 iron, serum 2024 025 [email or web address] [employer] [facility], [address] [place] [address] [address], [address], [place], [address], 5 07:57:03 TIBC (total iron-bindin g capacity), serum 2024 025 [email or web address] [employer] [facility], [address] [facility] [address], [address], [place], [address], 5 07:57:04 vitamin B12, serum 2024 025 [email or web address] [employer] [facility], [address] [place] [address] 248, [address], [place], [address], 5 07:57:04 urinalysis, complete 2024 025 [facility], [address] [facility] [place], [address], 17:20:52 culture, urine 2024 025 [place] [employer] [facility], [address] [facility] [address], [place], [address], 22:16:10 Referral spine center referral - T8 compression fracture with left scapular back pain NOT improving with time....wor sening. 2024 025 [email or web address] Not available 09:07:52 Procedures None recorded. Surgeries None recorded. Imaging XR, chest, 2 view 2024 025 [email or web address] [facility] ([facility] [address] [place], [address], 13:32:23 Medication Orders Senna-S 8.6 mg-[address] tablet [address] [facility] 15, [address], [place], [address], 15:01:18 magnesium citrate oral solution [address] [facility] 15, [address], [place], [address], 15:02:59 hydrocodone 5 mg-acetamin ophen [address] [facility] 15, [address], [place], [address], 16:19:54 amitriptyli ne 50 mg tablet 2024 [email or web address] [place] [address] 15, [address], [place], [address], 5 16:32:57 tramadol 50 mg tablet [address] [facility] 15, [address], [place], [address], 16:43:14 amitriptyli ne 25 mg tablet [address] [facility] 15, [address], [place], [address], 13:42:51 Patient TargetsNo targets recorded. Patient Instructions Encounter Date Encounter Id Patient Instructions Last Modified By Organization Details Last Modified Time 10/14/2024 [id number] We discussed B vitamins and Vitamin D. I will have her eat bland and keep follow up next week with PCP [email or web address] Not available 10/14/2024 13:30:23 Reason for Referral Spine Center Referral for Co mpression fracture of thoracic spine T8 compression fracture with left scapular back pain NOT improving with time....worsening. Referring Physician: Eve Meeks, Family Medicine, Encounter Date: 09/11/2024 Results Created Date Observation Date Name Description Value Unit Range Abnormal Flag Note LastModifiedBy Organization Detail LastModifiedTime 10/18/1910/17/2024 CBC WBC 6.1 x10 4.0-10 .5 Not Available [facility] [address], [place], [address], 10/17/2024 17:09:42 10/18/1910/17/2024 CBC RBC 4.58 x10 3.50-5 .50 Not Available [facility] [address], [place], [address], 10/17/2024 17:09:42 10/18/1910/17/2024 CBC HGB 13.7 g/dL 12.0-1 6.0 Not Available [facility] [address] [facility] 1, [place], [address], 10/17/2024 17:09:42 10/18/1910/17/2024 CBC HCT 40.7 % 37.0-4 7.0 Not Available [facility] [address] [facility] [address], [place], [address], 10/17/2024 17:09:42 10/18/1910/17/2024 CBC MCV 88.8 fL 80.0-9 9.9 Not Available [facility] [address] [facility] [address], [place], [address], 10/17/2024 17:09:42 10/18/1910/17/2024 CBC MCH 29.8 pg 27.0-3 2.0 Not Available [facility] [address] [facility] 1, [place], [address], 10/17/2024 17:09:42 10/18/19 25 10/17/2024 CBC MCHC 33.6 g/dL 32.0-3 6.0 Not Available [facility] [address] [facility] [address] [facility] [address], [place], [address], 10/17/2024 17:09:42 10/18/19 25 10/17/2024 CBC RDW 14.0 % 11.5-1 4.5 Not Available [facility] [address] [facility] [address] [facility] [address], [place], [address], 10/17/2024 17:09:42 10/18/19 25 10/17/2024 CBC plt 213.5 x10 140.0- 451.0 Not Available [facility] [address] [facility] [address], [place], [address], 10/17/2024 17:09:42 10/18/19 25 10/17/2024 CBC lymphocytes % 18.9 % 20.0-5 0.0 low Not Available [facility] [address] [facility] [address], [place], [address], 10/17/2024 17:09:42 10/18/19 25 10/17/2024 CBC granulcytes % 68.0 % 30.0-7 0.0 Not Available [facility] [address] [facility] [address], [place], [address], 10/17/2024 17:09:42 10/18/19 25 10/17/2024 CBC monocytes % 11.4 % 2.0-16 .0 Not Available [facility] [address] [facility] [address], [place], [address], 10/17/2024 17:09:42 10/18/19 25 10/17/2024 CBC granulcytes# 4.2 x10 Not Lucero ilable [facility] [address], [place], [address], 10/17/2024 17:09:42 10/18/19 25 10/17/2024 CBC lymphocytes # 1.2 x10 Not Available [facility] [address], [place], [address], 10/17/2024 17:09:42 10/18/19 25 10/17/2024 CBC monocytes # 0.7 x10 Not Avai lable [facility] [address], [place], [address], 10/17/2024 17:09:42 10/18/19 25 10/17/2024 URINA LYSIS WITH MICRO color DARK YELLOW Not Available [facility] [address], [place], [address], 10/17/2024 17:20:52 10/18/19 25 10/17/2024 URINA LYSIS WITH MICRO clarity CLEAR Not Available [facility] [address], [place], [address], 10/17/2024 17:20:52 10/18/19 25 10/17/2024 URINA LYSIS WITH MICRO glu NEGATI VE Not Available [facility] [address], [place], [address], 10/17/2024 17:20:52 10/18/19 25 10/17/2024 URINA LYSIS WITH MICRO bili NEGATI VE Not Available [facility] [address], [place], [address], 10/17/2024 17:20:52 10/18/19 25 10/17/2024 URINA LYSIS WITH MICRO ket TRACE Not Available [facility] [address], [place], [address], 10/17/2024 17:20:52 10/18/19 25 10/17/2024 URINA LYSIS WITH MICRO S.g 1.015 1.005- 1.025 Not Available [facility] [address], [place], [address], 10/17/2024 17:20:52 10/18/19 25 10/17/2024 URINA LYSIS WITH MICRO pH 5.0 5.0-7. 0 Not Available [facility] [address], [place], [address], 10/17/2024 17:20:52 10/18/19 25 10/17/2024 URINA LYSIS WITH MICRO pro NEGATI VE Not Available [facility] [address], [place], [address], 10/17/2024 17:20:52 10/18/19 25 10/17/2024 URINA LYSIS WITH MICRO uro 0.2 E.U./D L Not Available [facility] [address], [place], [address], 10/17/2024 17:20:52 10/18/19 25 10/17/2024 URINA LYSIS WITH MICRO nit NEGATI VE Not Available [facility] [address], [place], [address], 10/17/2024 17:20:52 10/18/19 25 10/17/2024 URINA LYSIS WITH MICRO blo NEGATI VE Not Available [facility] [address], [place], [address], 10/17/2024 17:20:52 10/18/19 25 10/17/2024 URINA LYSIS WITH MICRO munira NEGATI VE Not Available [facility] [address] [facility], [place], [address], 10/17/2024 17:20:52 10/18/19 25 10/17/2024 URINA LYSIS WITH MICRO WBC 2-3 Not Available [facility] [address] [facility] [address] [facility] [address], [place], [address], 10/17/2024 17:20:52 10/18/19 25 10/17/2024 URINA LYSIS WITH MICRO RBC 0-1 Not Available [facility] [address] [facility] [address] [facility] [address], [place], [address], 10/17/2024 17:20:52 10/18/19 25 10/17/2024 URINA LYSIS WITH MICRO epi cells 3-4 Not Available [facility] [address] [facility] 1, [place], [address], 10/17/2024 17:20:52 10/18/19 25 10/17/2024 URINA LYSIS WITH MICRO bacteria TRACE OF MIXED CRISTINA abnormal Not Available [facility] [address] [facility] [address], [place], [address], 10/17/2024 17:20:52 10/18/19 25 10/17/2024 URINA LYSIS WITH MICRO other NG Not Available [facility] [address] [facility] 1, [place], [address], 10/17/2024 17:20:52 10/18/19 25 10/17/2024 TSH TSH 2.20 uIU/m L 0.49-3 .82 Not Available [facility] [address] [facility] [address], [place], [address], 10/17/2024 17:35:28 10/18/19 25 10/17/2024 CMP (FEMA LE) glucose 114.0 mg/dL 60.0-9 9.0 high Not Available [facility] [address] [facility] [address], [place], [address], 10/17/2024 17:36:40 10/18/19 25 10/17/2024 CMP (FEMA LE) BUN (blood urea nitrogen) 28.0 mg/dL 10.0-2 6.0 high Not Available [facility] [address] [facility] 1, [place], [address], 10/17/2024 17:36:40 10/18/19 25 10/17/2024 CMP (FEMA LE) creatinine (serum) 1.1 mg/dL 0.4-1. 5 Not Available [facility] [address] [facility] [address], [place], [address], 10/17/2024 17:36:40 10/18/19 25 10/17/2024 CMP (FEMA LE) BUN/creatini ne ratio 25.45 ratio Not Available [address] [place] [address], [place], [address], 10/17/2024 17:36:40 10/18/19 25 10/17/2024 CMP (FEMA LE) eGFR calculated 50.[address] [facility] [address] [facility] [address], [place], [address], 10/17/2024 17:36:40 10/18/19 25 10/17/2024 CMP (FEMA LE) total protein 8.3 g/dL 6.0-8. 5 Not Available [facility] [address] [address], [place], [address], 10/17/2024 17:36:40 10/18/19 25 10/17/2024 CMP (FEMA LE) total bilirubin 1.2 mg/dL 0.2-1. 3 Not Available [facility] [address] [address], [place], [address], 10/17/2024 17:36:40 10/18/19 25 10/17/2024 CMP (FEMA LE) albumin 4.7 g/dL 3.5-5. 5 Not Available [facility] [address] [facility] [place] [facility], [place], [address], 10/17/2024 17:36:40 10/18/19 25 10/17/2024 CMP (FEMA LE) globulin 3.6 calc Not Available [facility] [address] [facility] [address], [place], [address], 10/17/2024 17:36:40 10/18/19 25 10/17/2024 CMP (FEMA LE) AST (SGOT) 26.0 U/L 0.0-46 .0 Not Available [facility] [address] [facility] [address], [place], [address], 10/17/2024 17:36:40 10/18/19 25 10/17/2024 CMP (FEMA LE) altv (SGPT) 17.0 U/L 13.0-6 9.0 normal Not Available [facility] [address] [facility] [address], [place], [address], 10/17/2024 17:36:40 10/18/19 25 10/17/2024 CMP (FEMA LE) A/G ratio 1.3 ratio Not Available [facility] [address] [facility] [address], [place], [address], 10/17/2024 17:36:40 10/18/19 25 10/17/2024 CMP (FEMA LE) ALP phos 119.0 U/L 30.0-1 40.0 normal Not Available [facility] [address] [facility] 1, [place], [address], 10/17/2024 17:36:40 10/18/19 25 10/17/2024 CMP (FEMA LE) calcium 9.6 mg/dL 8.4-10 .5 Not Available [facility] [address] [facility] [place] [facility], [place], [address], 10/17/2024 17:36:40 10/18/19 25 10/17/2024 CMP (FEMA LE) sodium 127.0 mmol/ L 136.0- 145.0 low Not Available [facility] [address] [facility] [address], [place], [address], 10/17/2024 17:36:40 10/18/19 25 10/17/2024 CMP (FEMA LE) potassium 4.6 mmol/ L 3.5-5. 1 Not Available [facility] [address] [facility] [address], [place], [address], 10/17/2024 17:36:40 10/18/19 25 10/17/2024 CMP (FEMA LE) chloride 95.0 mmol/ L 98.0-1 10.0 abnormal Not Available [facility] [address] [facility] [address], [place], [address], 10/17/2024 17:36:40 10/18/19 25 10/17/2024 CMP (FEMA LE) C02 22.0 mmol/ L 22.0-3 1.0 Not Available [facility] [address] [facility] [address], [place], [address], 10/17/2024 17:36:40 10/18/19 25 10/17/2024 CMP (FEMA LE) anion gap 10.0 calc Not Available [facility] [address] [facility] [address], [place], [address], 10/17/2024 17:36:40 10/18/19 25 10/17/2024 CMP (FEMA LE) osmolality 269.0 calc Not Available [facility] [address] [facility] [address], [place], [address], 10/17/2024 17:36:40 10/18/19 25 10/18/2024 IRON, TIBC AND ROSE TIN PANEL iron, total 74 mcg/d L 45-160 normal Not Available [address] [place], [address], 10/18/2024 09:29:39 10/18/19 25 10/18/2024 IRON, TIBC AND ROSE TIN PANEL iron binding capacity 277 mcg/d L_(ca lc) 250-45 0 normal Not Available [address], [address], 10/18/2024 09:29:39 10/18/19 25 10/18/2024 IRON, TIBC AND ROSE TIN PANEL % saturation 27 %_(ca lc) 16-45 normal Not Available [address], [address], 10/18/2024 09:29:39 10/18/19 25 10/18/2024 IRON, TIBC AND ROSE TIN PANEL ferritin 269 NG/mL 16-288 normal Not Available [address], [address], 10/18/2024 09:29:39 10/18/19 25 10/18/2024 VITAM IN B12/F OLATE , SERUM PANEL vitamin B12 281 pg/mL 200-11 00 normal Pleas e Note: Altho ugh the refer ence range for vitam in B12 is 200-1 100 pg/mL , it has been repor rolf that betwe en 5 and 10% of patie nts with value s betwe en 200 and 400 pg/mL may exper ience neuro psych iatri c and hemat ologi c abnor malit ies due to occul t B12 defic iency ; less than 1% of patie nts with value s above 400 pg/mL will have sympt oms. Not Available [address], [address], 10/18/2024 09:29:39 06/03/20 25 10/18/2024 VITAM IN B12/F OLATE , SERUM PANEL folate, serum 19.9 NG/mL normal Refer ence Range Low: <3.4 Borde rline : 3.4-5 .4 Whit l: >5.4 Not Available [facility] [address] [place], [address], 10/18/2024 09:29:39 10/18/19 25 10/18/2024 CULTU RE, URINE , ROUTI NE culture, urine, routine SEE NOTE CULTU RE, URINE , ROUTI NE Micro Numbe r: [id number] Test Statu s: Final Speci men Sourc e: Urine Speci men Quali ty: Adequ ate Resul t: No Growt h Not Available [facility] [address] [place], [address], 10/18/2024 22:16:10 08/22/19 25 08/21/2024 elect rocar diogr am No observ ation record ed. [email or web address] [facility] [address] [place], [address], 08/24/2024 11:34:34 08/22/19 25 08/21/2024 elect rocar diogr am No observ ation record ed. [facility] [address] [place], [address], 08/22/2024 08:41:28 08/22/19 25 08/21/2024 elect rocar diogr am No observ ation record ed. [email or web address] [facility] [address] [place], [address], 08/22/2024 08:42:20 09/05/19 25 08/31/2024 XR, scapu la No observ ation record ed. [email or web address] [facility] [address] [place], [address], 09/06/2024 14:27:10 09/08/19 25 09/07/2024 XR, chest , 2 view No observ ation record ed. [email or web address] [facility] [address] [place], [address], 09/13/2024 17:54:11 09/09/19 25 09/07/2024 XR, chest , 2 view No observ ation record ed. [email or web address] [facility] [address] [place], [address], 09/14/2024 09:58:15 09/12/1909/07/2024 XR, chest , 2 view No observ ation record ed. [email or web address] [facility] [address] [place], [address], 09/12/2024 09:02:36 Result Notes None recorded. Problems Name Problem SNOMED Code Status Onset Date Resolution Date Notes Provider Name and Address Organization Details Recorded Time Benign hypertension 47376750 Active 2021 Viry oconnell [facility] 4 13:37:03 Vertigo 532787196 Active 2021 SKIP KING [facility] 5 14:33:30 Herpes zoster 3704261 Active 2021 Zoster CONSTANCE NDIAYE [facility] 5 11:30:41 Problem Notes None recorded. Procedures Surgical History Date Name Laterality Status Provider Name and Address Organization Details Recorded Time 5 Colonoscopy completed Viry Torres [facility] 01/01/2024 13:37:48 Hysterectomy completed SIKP KING [facility] 03/16/2023 12:25:50 Imaging Results None recorded. Procedure Notes None recorded. Medical Equipment None Reported. Allergies No known drug allergies Medications Name Sig Start Date Stop Date Status Note LastModified by Organization Details LastModified Time nyst/diphe/ a-acid SWISH, GARGLE AND EXPECTORA TE 1-2 teaspoons ful EVERY 6 HOURS NEEDED MAY swallow IF esophagus is involved 10/27 completed Not Available Not Available Not Available doxycycline hyclate 100 mg capsule TAKE 1 CAPSULE BY MOUTH TWICE DAILY WITH MEALS FOR 10 DAYS 04/26 completed Not Available Not Available Not Available hydrocodone 5 mg-acetamin ophen 325 mg tablet TAKE 1 TABLET BY MOUTH EVERY DAY AT BEDTIME NEEDED FOR SEVERE PAIN 11/14 completed Not Available Not Available Not Available prednisone 20 mg tablet TAKE 3 TABLETS BY MOUTH ONCE DAILY FOR 3 DAYS , THEN 2 TABS DAILY FOR 2 DAYS, THEN 1 TAB DAILY FOR 2 DAYS active Not Available Not Available No t Available tramadol 50 mg tablet TAKE 1 TABLET BY MOUTH ONCE DAILY AT BEDTIME MAY TAKE 1 TABLET BY MOUTH 4 HOURS LATER IF NEEDED 10/17 completed Not Available Not Available Not Available amitriptyli ne 50 mg tablet TAKE 1 TABLET BY MOUTH NIGHTLY 10/17 completed Not Available Not Available Not Available amitriptyli ne 25 mg tablet Take 1 tablet every day by oral route in the evening. 09/11 completed Not Available Not Available Not Available amitriptyli ne 10 mg tablet TAKE 1 TABLET BY MOUTH ONCE DAILY AT NIGHT FOR 7 DAYS THEN 2 ONCE DAILY AT NIGHT 09/07 completed Not Available Not Available Not Available amlodipine 10 mg tablet TAKE ONE TABLET BY MOUTH EVERY DAY 2024 active Not Available Not Available Not Avai lable neomycin-po lymyxin-dex ameth 3.5 mg/mL-10,00 0 unit/mL-0.1 % eye drops 12/31 completed Not Available Not Available Not Available gabapentin 300 mg capsule TAKE 1 CAPSULE BY MOUTH TWICE DAILY 08/31 completed Not Available Not Available Not Available magnesium citrate oral solution 300mL po daily x 2 or until large soft bm 2024 active Not Available Not Available Not Avai lable clobetasol 0.05 % topical ointment APPLY TOPICALLY TO SCAR ON CHEST TWICE DAILY NEEDED FOR ITCHING. DO NOT USE ON FACE, GROIN, OR SKIN FOLDS. DO NOT USE MORE THAN 2 WEEKS PER MONTH 08/31 completed Not Available Not Available Not Available fluticasone propionate 50 mcg/actuati on nasal spray,suspe nsion USE 1 SPRAY(S) IN EACH NOSTRIL TWICE DAILY DIRECTED active Not Available Not Available No t Available irbesartan 300 mg tablet TAKE 1 TABLET BY MOUTH DAILY active Not Available Not Available No t Available naproxen 500 mg tablet 1 tab po BID for 3-7 days prn foot pain 04/15 completed Not Available Not Available Not Available diazepam 5 mg tablet BRING TABLETS TO [facility] active Not Available Not Available No t Available amoxicillin 875 mg-potassiu m clavulanate 125 mg tablet Take 1 tablet every 12 hours by oral route for 10 days. 08/21 completed Not Available Not Available Not Available Senna-S 8.6 mg-50 mg tablet 1 tab po BID untile large soft bm 2024 active Not Available Not Available Not Avai lable cyclobenzap rine 5 mg tablet TAKE 1 TABLET BY MOUTH TWICE DAILY NEEDED FOR SHOULDER PAIN 10/17 completed Not Available Not Available Not Available lactulose 10 gram/15 mL oral solution TAKE 15 ML BY MOUTH EVERY 12 HOURS NEEDED FOR CONSTIPAT ION FOR 30 DAYS active Not Available Not Available No t Available chlorhexidi ne gluconate 0.12 % mouthwash RINSE WITH 15ML FOR 30 SECONDS AND SPIT, USE TWICE DAILY AFTER BRUSHING AND FLOSSING FOR 7 DAYS 10/27 completed Not Available Not Available Not Available Miralax prn active Not Available Not Avail able Not Available sodium chloride 1,000 mg soluble tablet TAKE 1 TABLET BY MOUTH ONCE DAILY active Not Available Not Available No t Available PreserVisio n AREDS-2 bid active Not Available Not Available No t Available tramadol 25 mg tablet TAKE 1 TO 2 TABLETS BY MOUTH TWICE DAILY NEEDED FOR SCAPULA PAIN active Not Available Not Available No t Available Vitals Date Recorded Body height Body mass index (BMI) Body weight Body temperature Oxygen saturation Oxygen saturation in Arterial blood by Pulse oximetry Heart rate Systolic And Diastolic Provider Name and Address Organization Details Last Updated DateTime 5 170.18 cm 23.2 kg/m2 42698.6 7 g 98.1 [degF] 97 % 97 % 78 /min 140/80 mm[Hg] SKIP DELMAR KING [facility] 5 14:57:38 Date Recorded Body height Body mass index (BMI) Body weight Body temperature Oxygen saturation Oxygen saturation in Arterial blood by Pulse oximetry Heart rate Systolic And Diastolic Provider Name and Address Organization Details Last Updated DateTime 5 170.18 cm 23.2 kg/m2 82172.6 7 g 97.7 [degF] 96 % 96 % 80 /min 120/80 mm[Hg] SKIP JACOBSEN [facility] 5 11:51:00 Date Recorded Body height Body mass index (BMI) Body weight Oxygen saturation Oxygen saturation in Arterial blood by Pulse oximetry Heart rate Body temperature Systolic And Diastolic Provider Name and Address Organization Details Last Updated DateTime 5 170.18 cm 22.2 kg/m2 89418.1 2 g 99 % 99 % 107 /min 98.5 [degF] 118/80 mm[Hg] Rachel Johnson [facility] 5 12:57:11 Date Recorded Body height Body mass index (BMI) Body weight Body temperature Oxygen saturation Oxygen saturation in Arterial blood by Pulse oximetry Heart rate Systolic And Diastolic Provider Name and Address Organization Details Last Updated DateTime 5 170.18 cm 22.1 kg/m2 67978.5 2 g 97.1 [degF] 98 % 98 % 72 /min 130/72 mm[Hg] CONSTANCE NDIAYE [facility] 5 15:43:37 Date Recorded Body height Body mass index (BMI) Body weight Body temperature Oxygen saturation Oxygen saturation in Arterial blood by Pulse oximetry Heart rate Provider Name and Address Organization Details Last Updated DateTime 5 170.18 cm 22.1 kg/m2 28700.5 2 g 98.4 [degF] 98 % 98 % 89 /min SKIP DELMAR [facility] 5 14:30:13 Social History Question Answer Notes LastModified by Organizat ion Details LastModified Time Tobacco Smoking Status Never Smoker CONSTANCE NDIAYE [facility] 10/27/2022 11:35:03 What Was The Date Of Your Most Recent Tobacco Screening? 10/14/2024 [email or web address] Information not available 10/14/2024 Sex: Unknown Functional Status Question Answer Note LastModified by Organizat ion Details LastModified Time Do you use any illicit or recreational drugs? No [email or web address] Information not available 10/27/2022 What is your level of alcohol consumption? None [email or web address] Information not available 10/27/2022 Mental Status None recorded. Family History Relationship Description Onset Age of this Age Resolved Age Notes LastModified by Organization Details LastModified Time Mother Diabetes mellitus [email or web address] Not available 02/16 12:25:05 Mother Transient cerebral ischemia [email or web address] Not available 02/16 12:25:11 Father Malignant tumor of stomach [email or web address] Not available 02/16 12:25:26 Medical History Condition Response Coronary Artery Disease N Other N Gout N Kidney Stones N Blood Diseases N Hyperthyroidism N Blood Transfusion N Breast Cancer N Depression N Hypothyroidism N Lung Disease N COPD N Defects or Inherited Disease N Developmental or Behavioral Disorders N Breast Problem N Difficulty Swallowing N Anesthesia Complications N Meniere's disease N Anxiety Disorder N Muscle, Joint, or Bone Problems N Vision or Eye Problems N Arthritis N Polyps N Infertility N Cancer N Varicosities N Stroke N Endometriosis N Bladder or Kidney Problems N High Cholesterol N Liver Disease N Fibromyalgia N Headaches N Kidney Disease N Allergies/Hayfever N Heart Problems N Ear or Hearing Problems N Hospitalizations N Thyroid Problems N GI Problems N ADD/ADHD N Skin Problems N Eating Disorder N Anemia N Constipation N Mental Illness N Ovarian Cancer N Diabetes N Bedwetting N Seizures/Epilepsy N Tuberculosis N Eczema N Diverticulitis N Abuse/Domestic Violence N Asthma N Reflux/GERD N Hepatitis N Heart Disease N Pulmonary Embolism N Pre-Eclampsia N Hypertension Y Chronic Ear Infections N Osteoporosis N Chicken Pox N Autism Spectrum Disorder (ASD) N Thrombophilias N Gynecological HistoryNo gynecological history recorded. Obstetrics History GPAL:G 4 P 3 0 1 3 Type Value Full Term 3 Spontaneous 1 Living 3 Total 4 Immunizations Vaccine Type Date Status Note Provider Nam e and Address Organization Details Recorded Time Influenza, high-dose, quadrivalent, PF 3 completed SKIP DELMAR KING null, [facility] 03/16/2023 12:23:12 COVID-19, mRNA, LNP-S, PF, 50 mcg/0.5 mL 3 completed Viry Torres [facility] 01/01/2024 13:36:46 Influenza, high-dose, trivalent, PF 4 completed Not Available [facility] 10/23/2024 14:26:40 Influenza, high-dose, quadrivalent, PF 2 completed [facility]ANCE NDIAYE [facility] 10/27/2022 11:32:34 Influenza, adjuvanted, quadrivalent, PF 1 [facility] 10/27/2022 11:32:34 COVID-19, mRNA, LNP-S, PF, 100 mcg/0.5mL dose or 50 mcg/0.25mL dose 1 completed [facility] NDIAYE [facility] 10/27/2022 11:32:35 COVID-19, mRNA, LNP-S, PF, 100 mcg/0.5mL dose or 50 mcg/0.25mL dose 1 [facility] 10/27/2022 11:32:35 COVID-19, mRNA, LNP-S, PF, 100 mcg/0.5mL dose or 50 mcg/0.25mL dose 1 completed [facility] NDIAYE [facility] 10/27/2022 11:32:35 COVID-19, mRNA, LNP-S, bivalent, PF, 50 mcg/0.5 mL or 25mcg/0.25 mL dose 2 completed [facility] NDIAYE [facility] 10/27/2022 11:32:35 pneumococcal polysaccharide PPV23 0 completed [facility] 10/27/2022 11:32:35 Pneumococcal conjugate PCV 13 9 completed [facility] 10/27/2022 11:32:35 Influenza, high-dose, trivalent, PF 9 completed [facility] 10/27/2022 11:32:35 Influenza, high-dose, trivalent, PF 7 completed [facility] 10/27/2022 11:32:35 Influenza, high-dose, trivalent, PF 8 completed [facility] 10/27/2022 11:32:35 Influenza, high-dose, trivalent, PF 6 completed [facility] 10/27/2022 11:32:35 Influenza, split virus, trivalent, preservative 4 completed [facility] 10/27/2022 11:32:35 Influenza, split virus, trivalent, PF 5 completed [facility] 10/27/2022 11:32:35 Past Encounters Encounter ID Performer Location Encounter Start Date Encounter Closed Date Diagnosis/Indication Diagnosis SNOMED-CT Code Diagnosis ICD10 Code Diagnosis Note [id number] [facility] ([facility] [address] [place] [address] [id number] 10/27/2022 11:23:56 11/01/2022 12:34:44 Essential hypertension 84944269 I10 controlled . Seasonal allergy 6306174 04 J30.2 refill requested. [id number] [facility] ([facility]) [address] [place] [address] [place] [address]-887 5 12/10/2022 13:36:40 12/10/2022 18:13:26 Acute bronchitis 66096254 J20.9 [id number] Eve [address] [facility] ([facility]) [address] [place] [address] [id number] 03/16/2023 12:10:35 03/16/2023 12:48:09 Pain in left foot [id number] 64551 M79.672 handout given on plantar fasciitis stretches to perform. [id number] Eve Meeks MD [facility] ([facility]) [address] [place] [address] [id number] 5 04/26/2023 11:35:40 04/26/2023 12:57:00 Benign hypertension 87741197 I10 pt requests labs be done another time. I'm ok with waiting 6 months since her have been good. 04/26/23 [id number] [facility] ([facility]) [address] [place] [address] [id number] 5 10/26/2023 11:43:29 10/26/2023 12:30:00 Essential hypertension 10953822 I10 controlled . History of malignant neoplasm of skin 112347170 Z85.828 derm: Dr. Jamison [id number] CAITLIN LARSON APRN [facility] ([facility]) [address] [place] [address] [id number] 5 04/15/2024 11:45:10 04/18/2024 11:44:00 Acute maxillary sinusitis 93845802 J01.00 [id number] Eve [address] MD [facility] [address] [place] [address] [id number] 04/26/2024 14:00:21 04/26/2024 17:28:47 Benign hypertension 06608720 I10 Controlled 04/26/2024 Acute sinusitis 97749500 J01.90 Not improved. Change antibiotic 04/26/2024 [id number] Eve Meeks MD [facility] ([facility] [address] [place] [address] [id number] 08/21/2024 11:16:31 08/21/2024 13:02:13 Neuropathy 640946176 G62.9 Tingling and burning in fingers. 08/21/2024 Left sided chest pain 28 2658961 R07.9 Constant, improved with activity. I suspect musculoske letal. 08/21/2024 Muscle spa sm of thoracic back [id number] 28942 M62.830 Area of concern feels better with deep pressure. Patient was advised on massage, heat, stretching . I educated her on self massage using a foam roller. 08/21/2024 [id number] Eve Meeks MD [facility] [address] [place] [address] [id number] 5 08/31/2024 12:05:29 08/31/2024 15:45:54 Pain of bilateral hands 2400476509 4187353 M79.641 M79.642 Pain of le ft shoulder blade 200181737 M89.8X1 12:54 PM I received a message from all prescripti on saying that the tramadol did not go through and needed to be sent manually. Going to go ahead and change this to a muscle relaxer. 08/31/2024 [id number] Eve Meeks MD [facility] [address] [place] [address] [id number] 5 09/07/2024 14:52:51 09/09/2024 07:28:13 Chronic pain of left upper limb 7485697316 0392758 M25.512 G89.29 Just medial to the scapula. Some muscle tension is palpable in the area but the patient did not respond to the muscle relaxers. She has already been instructed to work on heat stretching and massage. She does not feel this during the day when she is up and about. She does not notice it with exertion. She states it can radiate through to the front of her chest and points to the scar where she had a skin cancer removed. On palpation and visual inspection the scar appears normal without evidence of recurrence . Started tramadol 50mg. 09/07/24 Pain of bi lateral hands 9860311882 4747846 M79.641 M79.642 dc 10mg and change to 25mg. Today she will start doing the 2 tabs of the 10 mg to go up to 20 mg. When she runs out of that she will take the 25 mg. 09/07/24 [id number] Eve [address]eeks MD [facility] [address] [place] [address] [id number] 5 09/11/2024 11:24:24 09/14/2024 07:13:38 Compression fracture of thoracic spine 794727407 M48.54XA This is at about the level she points to when she points to her scapular pain, therefore I would consider it more acute. However I would be expecting her to have been improving at this point and instead she is worsening. She is sleeping okay with the tramadol. She still wakes up a little drowsy. She does not want a stronger pain medicine at this time. She also wants to stop taking it as soon as she can.Due to pain not improving as expected will refer to spine center. 09/11/2024 Neuropathic pain 1852545 09 M79.2 Very localized to just her fingertip pads. We will try increasing the dose again. I discussed that the medication does take time to work. 09/11/2024 [id number] CAITLIN LARSON APRN [facility] [address] [place] [address] [id number] 5 10/14/2024 12:45:23 10/16/2024 13:37:18 Neuropathy 966851836 G62.9 [id number] Eve Meeks MD [facility] [address] [place] [address] [id number] 5 10/17/2024 15:09:28 10/18/2024 10:18:47 Visual hallucinations 40050396 R44.1 pt thinks may be tramacol but she stopped it Wednesday and is still seeing things. 7 half-lives for tramadol would be 56 hrs....I think it may be her amitriptyl ine but she says she is not taking the amitriptyl ine.... Insomnia 090631686 G47.0 9 Patient vacillates between insomnia and pain keeping her awake. She was able to sleep when she took the stronger pain medication . Backache 885518285 M54.5 0 M54.6 She has already seen neurosurge ry and they were awaiting results of an MRI with possible referral to neurology. She seems very miserable and even somewhat depressed by this pain in her shoulder back area. We will try a stronger pain medicine and hope that it does not give her additional side effects. Asthenia 62562365 R53.1 We will check some basic lab work. I'm really at a loss as to why the pt is declining. ... Unfortunat zenon neurosurge ry did not have much to add as far as her back pain goes. [id number] Eve Meeks MD [facility] ([facility]) [address] [place] [address] 10/23/2024 14:25:35 10/24/2024 15:05:45 Essential hypertension 59090003 I10 controlled . Post-disch arge follow-up 274989551 Z09 Acute constipation 11391 9006 K59.00 I reviewed patient's ER visit and reports. The CT did not mention constipati on but her x-ray did. She was advised to take the magnesium and senna and follow-up if she has not had a large soft bowel movement within 72 hours 10/23/2024 Health Concerns Section Related Observation LastModified by Organization Detai ls LastModified Time None Recorded Concern Status LastModified by Organization Details LastModified Time None Recorded Advance Directives Directive None Recorded Payers Insurance Date Sequence Insurance Name Policy Number Policy Puente Covered Member ID Puente Member ID Guarantor Name 10/23/2024 1 [id number]ANTAGE - [place]PO) [id number] Jaz Newell [id number] Jaz Newell Notes Date Note Type Note Provider Name and Address Organization Details Recorded Time 09/07/2024 text/html Joint PainReport ed bypatient.Location :left shoulder Quality:sharp Severity:no change Associated Symptoms:no fever The pain is not getting worse but also not any better either. My hands are not worse but my shoulder is painful.I have not noticed any difference in my hands. It is right on the tips of my fingers. My fingers themselves in the palm seem to be okay. The right pinky finger and the left ring finger did not have any pain on the tips. At night when I fall asleep, within 2 hours I am up from the pain in my shoulder it feels like it shoots to the front. Eve Meeks MD [address] [place] [address], [phone], [facility], [place]. 09/07/2024 17:34:11 09/11/2024 text/html Joint PainReport ed bypatient.Location :left shoulder Quality:sharp Severity:no change Associated Symptoms:no fever she cant tell a difference in her back.... But she is sleeping better She cannot tell a difference with her fingers. She is on the 20 mg Eve Meeks MD [address] [place] [address], [phone], [facility], [place] 09/11/2024 13:51:23 10/14/2024 text/html walk inno appetite, fullness, x1 week chills, fatigue, having neuropathy CAITLIN LARSON APRN [address] [place] [address], [phone], [facility], [place]. 10/14/2024 13:30:59 10/17/2024 text/html for the last 7-1 0 days been fighting one thing after another....feeling real full like I couldnt eat...if I did eat I got constipated.....I took care of that.I quit the tramadol last week...my legs just feel like jelloheadache that would put me to sleep for 2-3 Ki couldnt sit down or I would go to sleep.then last night I couldnt go to sleep for this pain in my back.......the last couple days I've started seeing things that are not there....there were big orange terrazas on the floor when I went to get my shoes and I dont have any orange terrazas in my house. Eve Meeks MD [address] [place] [address], [phone], [facility], [place]. 10/24/2024 13:57:29 10/23/2024 text/html Patient was recently seen in the ER for abdominal painShe was diagnosed with constipation and given instructions to take 2 laxatives. She has not gotten these laxatives from the store yet.She has bowel movements but only goes a little bit at a time she points to the tip of her finger like peanut sized. Eve Meeks MD [address] [place] [address], [phone], [facility], [place] 10/24/2024 13:40:12 OBGyn Episode No OBEpisode recorded.
--- NOTE | 2024-11-21 20:15 | XRR_ITS ---
PROCEDURE INFORMATION: Exam: XR Chest Exam date and time: 11/21/2024 8:25 PM Age: 89 years old Clinical indication: Chest pressure; Chest pain TECHNIQUE: Imaging protocol: Radiologic exam of the chest. Views: 1 view. COMPARISON: CR XR chest 2V* [id number] 09/07/2024 3:04 PM FINDINGS: Lungs: Right midlung scarring. Linear infrahilar opacities bilaterally also suggestive of scar or atelectasis. No acute consolidation. Pleural spaces: Unremarkable. No pleural effusion. No pneumothorax. Heart/Mediastinum: Unremarkable. No cardiomegaly. Bones/joints: Unremarkable. XR/XR chest 1V portable [id number] IMPRESSION: No acute findings.
--- NOTE | 2024-11-21 20:16 | W.ED.GENADLT ---
HPI - General Adult General: Chief complaint: Chest Pain Stated complaint: CP SOB Time Seen by Provider: 11/21/24 20:04 History of Present Illness: Patient comes in with chest pain. She describes as left-sided, burning, constant, started 2 days ago, radiates into her back. States that it is worse with palpation. Denies fever, cough, congestion, vomiting, diarrhea. Denies abdominal pain. On physical exam she does have reproducible left-sided chest wall tenderness to palpation. She states this is similar to the chest pain she had a month ago when she was seen in the emergency department. Will check labs, EKG, chest x-ray, give 15 mg of IV Toradol, and reassess. Associated symptoms: Deny dyspnea, headache(s), nausea, rash, palpitations or vomiting Related Data Home Medications ?Medication ?Instructions ?Recorded ?Confirmed vit C 250 mg-E 90 mg-zinc 40 1 tab PO BID 07/23/21 10/31/24 mg-copper 1 ng-dlfvxk-bnbmnj chew tablet (PreserVision AREDS-2) amitriptyline 10 mg tablet 20 mg PO DAILY 10/25/24 10/31/24 gabapentin 300 mg capsule 300 mg PO BID 10/25/24 10/31/24 hydrocodone 5 mg-acetaminophen 325 1 tab PO BEDTIME PRN Severe Pain 10/25/24 10/31/24 mg tablet (Scale Score 7-10) irbesartan 300 mg tablet 300 mg PO DAILY 10/25/24 10/31/24 tramadol 50 mg tablet 50 mg PO BID PRN pain 10/25/24 10/31/24 Previous Rx's ?Medication ?Instructions ?Recorded amlodipine 10 mg tablet 10 mg PO QDAY 90 days #90 tabs 12/22/21 fluticasone propionate 50 2 spray intranasal BID #16 grams 03/19/22 mcg/actuation nasal spray,suspension (Allergy Relief (fluticasone)) magnesium citrate 300 ml PO DAILY PRN constipation 10/20/24 #296 mL sennosides 8.6 mg-docusate sodium 1 tab-cap PO BID PRN constipation 10/20/24 50 mg tablet (Senna with Docusate #20 tabs Sodium) lactulose 10 gram/15 mL oral 10 g (15 mL) PO Q12H PRN 10/25/24 solution constipation 30 days #100 mL psyllium husk 3.4 gram oral powder 3.4 g PO DAILY #30 ea 10/25/24 packet (Metamucil Fiber (aspartame)) sodium chloride 1,000 mg soluble 1,000 mg PO DAILY #5 tabs 10/25/24 tablet prednisone 20 mg tablet 20 mg PO DAILY #15 tabs 10/31/24 Allergies Allergy/AdvReac Type Severity Reaction Status Date / Time No Known Allergies Allergy Verified 08/14/22 08:52 Review of Systems Const: Denies: fever(s) Eyes: Denies: change in vision or blurry vision ENMT: Denies: throat pain Card: Denies: palpitations Resp: Denies: dyspnea or productive cough GI: Denies: abdominal pain, nausea or vomiting Musc: Denies: neck pain Skin/Breast: Denies: rash Neuro: Denies: headache(s) [facility] PFSH: Medical History (Updated 11/21/24 @ 22:41 by Sergey Raphael MD) HTN (hypertension), benign Surgical History History of hysterectomy Family History Other Cancer Diabetes Stroke Social History Smoking and tobacco/nicotine status: never used tobacco/nicotine Alcohol intake: never Substance/Drug Use: never Household members: spouse Housing: House Marital status: Physical Exam Const: COMMON NORMALS: no acute distress, patient oriented x3, healthy appearing and alert HENMT: COMMON NORMALS: normocephalic and atraumatic HEAD & SCALP: normocephalic and atraumatic Eye: COMMON NORMALS: Equal, round and reactive pupils present and EOMs intact bilaterally PUPIL: Yes Equal, round and reactive pupils present Neck/C-Spine: COMMON NORMALS: full ROM and supple Resp: COMMON NORMALS: normal respiratory effort, No retractions and No use of accessory muscles Cardio: COMMON NORMALS: regular rate and regular rhythm RATE: regular rate RHYTHM: regular rhythm OTHER: Left-sided chest wall tenderness to palpation GI: COMMON NORMALS: Normal to inspection, nondistended, normoactive bowel sounds present, Soft to palpation and non-tender PALPATION: Yes Soft to palpation Extremity: COMMON NORMALS: normal to inspection and full ROM Neuro: COMMON NORMALS: patient oriented x3 SENSORIUM/ORIENTATION: Yes alert Psych: COMMON NORMALS: mental status grossly normal and cooperative Skin: COMMON NORMALS: no rashes or lesions noted and no wounds GENERAL SKIN EXAM: no rashes or lesions noted Course Vital Signs: Vital signs: Vital Signs Temperature 97.8 F 11/21/24 20:18 Pulse Rate 85 11/21/24 21:30 Respiratory Rate 19 H 11/21/24 21:30 Blood Pressure 145/75 11/21/24 21:30 Pulse Oximetry 97 11/21/24 21:30 Oxygen Delivery Me thod Room Air 11/21/24 21:30 MDM - General Adult Medical Decision Making On reassessment I talked to the patient about her test results. Her creatinine is slightly elevated from her baseline at 1.4. We gave her some IV fluids here. Her initial troponin came back mildly elevated at 23 with her 2-hour troponin at 22.5. She states that her chest pain went away after the Toradol. We discussed symptoms that should prompt immediate return to the emergency department. Will refer her to cardiology for further workup and treatment of her chest pain continues. Will discharge at this time with precautions to return for worsening or changing symptoms. Lab Data 11/21/24 20:20 11/21/24 20:20 Radiology Impressions Chest X-Ray 11/21/24 20:15 IMPRESSION: No acute findings. Laboratory Results WBC 6.93 10^3/uL (3.29-11.43) 11/21/24 20:20 RBC 4.08 10^6/uL (3.85-5.65) 11/21/24 20:20 Hgb 12.30 g/dL (11.27-16.99) 11/21/24 20:20 Hct 35.2 % (36-47) L 11/21/24 20:20 MCV 86.3 fl (85-98) 11/21/24 20:20 MCH 30.1 pg (27-33) 11/21/24 20:20 MCHC 34.9 g/dL (30-55) 11/21/24 20:20 RDW 14.3 % (12.1-15.1) 11/21/24 20:20 Plt Count 188 10^3/cmm (157-399) 11/21/24 20:20 MPV 10.0 fL (7.4-10.4) 11/21/24 20:20 Neut % (Auto) 63.9 % 11/21/24 20:20 Lymph % (Auto) 23.7 % 11/21/24 20:20 [place] % (Auto) 10.5 % 11/21/24 20:20 Eos % (Auto) 1.2 % 11/21/24 20:20 Baso % (Auto) 0.4 % 11/21/24 20:20 Neut # (Auto) 4.43 10^3/uL (1.8-7.7) 11/21/24 20:20 Lymph # (Auto) 1.6 10^3/uL (0.8-4.8) 11/21/24 20:20 [place] # (Auto) 0.7 10^3/uL (0.2-0.9) 11/21/24 20:20 Eos # (Auto) 0.1 10^3/uL (0.0-0.8) 11/21/24 20:20 Baso # (Auto) 0.0 10^3/uL (0.0-0.1) 11/21/24 20:20 Nucleated RBC % (auto) 0 % 11/21/24 20:20 Nucleated RBCs # 0.0 /100WBC 11/21/24 20:20 Sodium 132 mmol/L (136-145) L 11/21/24 20:20 Potassium 4.1 mmol/L (3.5-5.1) 11/21/24 20:20 Chloride 97 mmol/L (98-107) L 11/21/24 20:20 Carbon Dioxide 20 mmol/L (22-29) L 11/21/24 20:20 Anion Gap 19.1 (5-19) H 11/21/24 20:20 BUN 10 mg/dL (8-23) 11/21/24 20:20 Creatinine 0.8 mg/dL (0.5-0.9) 11/21/24 20:20 GFR Calculation Not Reportable 11/21/24 20:20 Glucose 94 mg/dL (65-115) 11/21/24 20:20 Calculated Osmolality 273 mOsm/kg (285-295) L 11/21/24 20:20 Calcium 8.8 mg/dL (8.5-10.5) 11/21/24 20:20 Total Bilirubin 1.4 mg/dL (0.15-1.2) H 11/21/24 20:20 AST 16 U/L (0-32) 11/21/24 20:20 ALT 11 U/L (0-33) 11/21/24 20:20 Alkaline Phosphatase 111 U/L (35-105) H 11/21/24 20:20 Troponin T Baseline 23 ng/L (0-10) H 11/21/24 20:20 Troponin T 120 Minute 22.52 ng/L (0-10) H 11/21/24 21:49 Delta Troponin T -0.48 ABS# (0-10) L 11/21/24 21:49 Total Protein 6.4 g/dL (6.6-8.7) L 11/21/24 20:20 Albumin 3.9 g/dL (3.5-5.2) 11/21/24 20:20 Globulin 2.5 g/dL (1.3-4.6) 11/21/24 20:20 Lipase 16 U/L (13-60) 11/21/24 20:20 All radiology interpretation(s) finalized by discharge EKG Data ECG done November 21, 2024 at 8:09 PM and interpreted by me at 8:10 PM shows sinus rhythm, ventricular rate of 89 bpm, no ST segment elevation, normal axis: Computer generated interpretation: Chest X-Ray 11/21/24 20:15 IMPRESSION: No acute findings. Discharge Plan Discharge Patient Disposition: Home Clinical Impression: Chest pain Condition: Stable Prescriptions: No Action PreserVision AREDS-2 250-90-40-1 mg tablet,chewable 1 tab PO BID prednisone 20 mg tablet 20 mg PO DAILY Qty: 15 0RF Rx Instructions: 60MG for 3 days 40MG for 2 days 20MG for 2 days amlodipine 10 mg tablet 10 mg PO QDAY 90 Days Qty: 90 3RF fluticasone propionate [Allergy Relief (fluticasone)] 50 mcg/actuation spray,suspension 2 spray INTRANASAL BID Qty: 16 3RF Rx Instructions: administer into each nostril hydrocodone-acetaminophen 5-325 mg tablet 1 tab PO BEDTIME PRN (Reason: Severe Pain (Scale Score 7-10)) tramadol 50 mg tablet 50 mg PO BID PRN (Reason: pain ) amitriptyline 10 mg tablet 20 mg PO DAILY gabapentin 300 mg capsule 300 mg PO BID irbesartan 300 mg tablet 300 mg PO DAILY lactulose 10 gram/15 mL Solution 10 g PO Q12H PRN (Reason: constipation) 30 Days Qty: 100 1RF Metamucil Fiber (aspartame) 3.4 gram powder in packet 3.4 g PO DAILY Qty: 30 0RF sodium chloride 1,000 mg tablet,soluble 1,000 mg PO DAILY Qty: 5 0RF sennosides-docusate sodium [Senna with Docusate Sodium] 8.6-50 mg tablet 1 tab-cap PO BID PRN (Reason: constipation) Qty: 20 0RF magnesium citrate Solution 300 ml PO DAILY PRN (Reason: constipation) Qty: 296 0RF Discharge Orders: Discharge ED (Routine); Ordered 11/21/24 Ordered By: Sergey Raphael Referrals: Eve Meeks MD [Primary Care Provider, Family Practice] Patient Instructions: Chest Pain - Chest Wall, Chest Pain (ED), Patient Portal & Adin Instructions Activity Restrictions/Additional Instructions: Take Tylenol 500 mg by mouth 3 times a day for the next 5 days. Print Language: Bahraini Coding Level of Care Code ED Administration Vice President for Marlee Godfrey
[2024-11-21 20:18] VITALS: BP 175/105; PULSE 92; RESP 20; TEMP 36.6; O2SAT 97; BMI 22.1
[2024-11-21 20:30] VITALS: BP 156/86; PULSE 87; RESP 17; O2SAT 97
[2024-11-21 20:50] LABS: Hematocrit 35.2 % (36-47); Hemoglobin 12.30 g/dL (11.27-16.99); Mean Corpuscular HGB Conc 34.9 g/dL (30-55); Mean Corpuscular Hemoglobin 30.1 pg (27-33); Mean Corpuscular Volume 86.3 fl (85-98); Nucleated Red Blood Cells % 0 %; Platelet Count 188 10^3/cmm (157-399); Red Blood Count 4.08 10^6/uL (3.85-5.65); White Blood Count 6.93 10^3/uL (3.29-11.43)
[2024-11-21 20:59] LABS: Alanine Aminotransferase 11 U/L (0-33); Albumin Level 3.9 g/dL (3.5-5.2); Alkaline Phosphatase 111 U/L (35-105); Aspartate Amino Transferase 16 U/L (0-32); Blood Urea Nitrogen 10 mg/dL (8-23); Calcium 8.8 mg/dL (8.5-10.5); Carbon Dioxide 20 mmol/L (22-29); Chloride 97 mmol/L (98-107); Creatinine Clr Calc Pharmacy 48.9159; Globulin 2.5 g/dL (1.3-4.6); Glucose 94 mg/dL (65-115); Lipase 16 U/L (13-60); Osmolality Calculated 273 mOsm/kg (285-295); Sodium 132 mmol/L (136-145); Total Protein 6.4 g/dL (6.6-8.7)
[2024-11-21 21:00] VITALS: BP 146/79; PULSE 84; RESP 18; O2SAT 94
[2024-11-21 21:03] LABS: Anion Gap 19.1 (5-19); Potassium 4.1 mmol/L (3.5-5.1)
[2024-11-21 21:05] LABS: Troponin(5th) Baseline 23 ng/L (0-10)
[2024-11-21 21:30] VITALS: BP 145/75; PULSE 85; RESP 19; O2SAT 97
[2024-11-21 22:13] LABS: Troponin 5 2HR 22.52 ng/L (0-10)
--- NOTE | 2024-11-21 22:16 | ECG_ITS ---
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 Measurements Intervals [place] Rate: 86 P: 82 AL: 149 QRS: 72 QRSD: 89 T: 52 QT: 363 QTc: 436 Interpretive Statements SINUS RHYTHM Compared to ECG 11/21/2024 20:09:43 No significant changes Electronically Signed On 11-22-2024 20:27:41 CDT by Elke Rodriguez M.D. [email or web address]
[2024-11-21 22:26] LABS: Troponin 5 2HR Delta -0.48 ABS# (0-10)
[2024-11-21 23:08] VITALS: BP 141/75; PULSE 98; RESP 18; O2SAT 98
--- NOTE | 2024-11-22 11:14 | PC.NURSE ---
Cardiology referral sent.
== END 2024-11-21 23:10 | disposition home or self-care (01) ==
PROVIDERS: Emergency Provider Emergency Medicine; PCP Family Medicine
DX: R07.9 Chest pain, unspecified (principal); I10 Essential (primary) hypertension
CPT/HCPCS: 36415; 71045; 80053; 83690; 84484; 85025; 93005; 96361; 96374; 99285; J1885; J7040

== ENCOUNTER 2024-12-01 10:11 | Emergency (ER) | payer MEDICARE, SELFPAY ==
[2024-12-01] VITALS (7 sets, daily range): BP systolic 135–154; BP diastolic 68–84; PULSE 69–89; RESP 16–32; TEMP 36.4; O2SAT 92–98; BMI 21.6
--- OUTSIDE RECORDS SUMMARY | 2024-12-01 10:17 | XMS_ITS | Data Portability ---
Author Organization [facility] Address [address] [address] Care Team Providers Care Bus Girl Name Role Phone EVE MEEKS Primary Care Provider [phone] Assessment No assessment recorded. Plan of Treatment Reminders Order Date Submit Date Provider Last Modified By Organization Details Last Modified Time Details Appointments None recorded. Lab CMP, serum or plasma 2024 025 [facility], [address], [place], [address], 17:36:40 CBC 2024 025 [facility], [address], [place], [address], 17:09:42 TSH, serum or plasma 2024 025 [email or web address] 40 [facility], [address], [place], [address], 5 07:57:03 ferritin, serum or plasma 2024 025 [email or web address] 40 [facility], [address], [place], [address], 5 07:57:03 folate, serum 2024 025 [email or web address] 40 [facility], [address] [facility] [address], [place], [address], 5 07:57:03 iron, serum 2024 025 [email or web address] 40 [facility], [address] [place] [address] [address], [address], [place], [address], 5 07:57:03 TIBC (total iron-bindin g capacity), serum 2024 025 [email or web address] 40 [facility], [address] [facility] [address], [address], [place], [address], 5 07:57:04 vitamin B12, serum 2024 025 [email or web address] 40 [facility], [address] [place] [address] 248, [address], [place], [address], 5 07:57:04 urinalysis, complete 2024 025 [facility], [address] [facility] [address], [address], 17:20:52 culture, urine 2024 025 TODD [facility], [address] [facility] [address], [place], [address], 22:16:10 Referral spine center referral - T8 compression fracture with left scapular back pain NOT improving with time....wor sening. 2024 025 [email or web address] 2 Not available 09:07:52 Procedures None recorded. Surgeries None recorded. Imaging XR, chest, 2 view 2024 025 [email or web address] [facility] ([facility] [address] [place], [address], 13:32:23 Medication Orders Senna-S 8.6 mg-50 mg tablet 2024 025 [facility] 15, [address], [place], [address], 15:01:18 magnesium citrate oral solution 2024 025 [facility] 15, [address], [place], [address], 15:02:59 hydrocodone 5 mg-acetamin ophen 325 mg tablet 2024 025 [facility] 15, [address], [place], [address], 16:19:54 amitriptyli ne 50 mg tablet 2024 [email or web address] [place] [address] 15, [address], [place], [address], 5 16:32:57 tramadol 50 mg tablet 2024 025 [facility] 15, [address], [place], [address], 16:43:14 amitriptyli ne 25 mg tablet 2024 025 [facility] 15, [address], [place], [address], 13:42:51 Patient TargetsNo targets recorded. Patient Instructions Encounter Date Encounter Id Patient Instructions Last Modified By Organization Details Last Modified Time 10/14/2024 [id number] We discussed B vitamins and Vitamin D. [...] 6.1 x10 4.0-10 .5 Not Available [facility] [address], [place], [address], 10/17/2024 17:09:42 10/18/1910/17/2024 CBC RBC 4.58 x10 3.50-5 .50 Not Available [facility] [address], [place], [address], 10/17/2024 17:09:42 10/18/1910/17/2024 CBC HGB 13.7 g/dL 12.0-1 6.0 Not Available [facility] [address] [facility] 1, [place], [address], 10/17/2024 17:09:42 10/18/1910/17/2024 CBC HCT 40.7 % 37.0-4 7.0 Not Available [facility] [address] [facility] 1, [place], [address], 10/17/2024 17:09:42 10/18/1910/17/2024 CBC MCV 88.8 fL 80.0-9 9.9 Not Available [facility] [address] [facility] 1, [place], [address], 10/17/2024 17:09:42 10/18/1910/17/2024 CBC MCH 29.8 pg 27.0-3 2.0 Not Available [facility] [address] [facility] 1, [place], [address], 10/17/2024 17:09:42 10/18/19 25 10/17/2024 CBC MCHC 33.6 g/dL 32.0-3 6.0 Not Available [facility] [address] [facility] [facility] [facility] 1, [place], [address], 10/17/2024 17:09:42 10/18/19 25 10/17/2024 CBC RDW 14.0 % 11.5-1 4.5 Not Available [facility] [address] [facility] 1, [place], [address], 10/17/2024 17:09:42 10/18/19 25 10/17/2024 CBC plt 213.5 x10 140.0- 451.0 Not Available [facility] [address] [facility], [place], [address], 10/17/2024 17:09:42 10/18/19 25 10/17/2024 CBC lymphocytes % 18.9 % 20.0-5 0.0 low Not Available [facility] [address] [facility] 1, [place], [address], 10/17/2024 17:09:42 10/18/19 25 10/17/2024 CBC granulcytes % 68.0 % 30.0-7 0.0 Not Available [facility] [address] [facility] 1, [place], [address], 10/17/2024 17:09:42 10/18/19 25 10/17/2024 CBC monocytes % 11.4 % 2.0-16 .0 Not Available [facility] [address] [facility] 1, [place], [address], 10/17/2024 17:09:42 10/18/19 25 10/17/2024 CBC granulcytes# 4.2 x10 Not Lucero ilable [facility] [address], [place], [address], 10/17/2024 17:09:42 10/18/19 25 10/17/2024 CBC lymphocytes # 1.2 x10 Not Available [facility] [address], [place], [address], 10/17/2024 17:09:42 10/18/19 25 10/17/2024 CBC monocytes # 0.7 x10 Not Avai lable [facility] [address], [place], [address], 10/17/2024 17:09:42 10/18/19 25 10/17/2024 URINA LYSIS WITH MICRO color DARK YELLOW Not Available [facility] [address], [place], [address], 10/17/2024 17:20:52 10/18/19 25 10/17/2024 URINA LYSIS WITH MICRO clarity CLEAR Not Available [facility] [address], [place], [address], 10/17/2024 17:20:52 10/18/19 25 10/17/2024 URINA LYSIS WITH MICRO glu NEGATI VE Not Available [facility] [address], [place], [address], 10/17/2024 17:20:52 10/18/19 25 10/17/2024 URINA LYSIS WITH MICRO bili NEGATI VE Not Available [facility] [address], [place], [address], 10/17/2024 17:20:52 10/18/19 25 10/17/2024 URINA LYSIS WITH MICRO ket TRACE Not Available [facility] [address], [place], [address], 10/17/2024 17:20:52 10/18/19 25 10/17/2024 URINA LYSIS WITH MICRO S.g 1.015 1.005- 1.025 Not Available [facility] [address], [place], [address], 10/17/2024 17:20:52 10/18/19 25 10/17/2024 URINA LYSIS WITH MICRO pH 5.0 5.0-7. 0 Not Available [facility] [address], [place], [address], 10/17/2024 17:20:52 10/18/19 25 10/17/2024 URINA LYSIS WITH MICRO pro NEGATI VE Not Available [facility] [address], [place], [address], 10/17/2024 17:20:52 10/18/19 25 10/17/2024 URINA LYSIS WITH MICRO uro 0.2 E.U./D L Not Available [facility] [address], [place], [address], 10/17/2024 17:20:52 10/18/19 25 10/17/2024 URINA LYSIS WITH MICRO nit NEGATI VE Not Available [facility] [address], [place], [address], 10/17/2024 17:20:52 10/18/19 25 10/17/2024 URINA LYSIS WITH MICRO blo NEGATI VE Not Available [facility] [address], [place], [address], 10/17/2024 17:20:52 10/18/19 25 10/17/2024 URINA LYSIS WITH MICRO munira NEGATI VE Not Available [facility] [address] [facility] 1, [place], [address], 10/17/2024 17:20:52 10/18/19 25 10/17/2024 URINA LYSIS WITH MICRO WBC 2-3 Not Available [facility] [address] [facility] 1, [place], [address], 10/17/2024 17:20:52 10/18/19 25 10/17/2024 URINA LYSIS WITH MICRO RBC 0-1 Not Available [facility] [address] [facility] 1, [place], [address], 10/17/2024 17:20:52 10/18/19 25 10/17/2024 URINA LYSIS WITH MICRO epi cells 3-4 Not Available [facility] [address] [facility] 1, [place], [address], 10/17/2024 17:20:52 10/18/19 25 10/17/2024 URINA LYSIS WITH MICRO bacteria TRACE OF MIXED CRISTINA abnormal Not Available [facility] [address] [facility] 1, [place], [address], 10/17/2024 17:20:52 10/18/19 25 10/17/2024 URINA LYSIS WITH MICRO other NG Not Available [facility] [address] [facility] 1, [place], [address], 10/17/2024 17:20:52 10/18/19 25 10/17/2024 TSH TSH 2.20 uIU/m L 0.49-3 .82 Not Available [facility] [address] [facility] 1, [place], [address], 10/17/2024 17:35:28 10/18/19 25 10/17/2024 CMP (FEMA LE) glucose 114.0 mg/dL 60.0-9 9.0 high Not Available [facility] [address] [facility] 1, [place], [address], 10/17/2024 17:36:40 10/18/19 25 10/17/2024 CMP (FEMA LE) BUN (blood urea nitrogen) 28.0 mg/dL 10.0-2 6.0 high Not Available [facility] [address] [facility] [address], [place], [address], 10/17/2024 17:36:40 10/18/19 25 10/17/2024 CMP (FEMA LE) creatinine (serum) 1.1 mg/dL 0.4-1. 5 Not Available [facility] [address] [facility] [address], [place], [address], 10/17/2024 17:36:40 10/18/19 25 10/17/2024 CMP (FEMA LE) BUN/creatini ne ratio 25.45 ratio Not Available [address] [address], [place], [address], 10/17/2024 17:36:40 10/18/19 25 10/17/2024 CMP (FEMA LE) eGFR calculated 50.1 Not Available [facility] [address] [facility] [address], [place], [address], 10/17/2024 17:36:40 10/18/19 25 10/17/2024 CMP (FEMA LE) total protein 8.3 g/dL 6.0-8. 5 Not Available [facility] [address] [address], [place], [address], 10/17/2024 17:36:40 10/18/19 25 10/17/2024 CMP (FEMA LE) total bilirubin 1.2 mg/dL 0.2-1. 3 Not Available [facility] [address] [address], [place], [address], 10/17/2024 17:36:40 10/18/19 25 10/17/2024 CMP (FEMA LE) albumin 4.7 g/dL 3.5-5. 5 Not Available [facility] [address] [facility], [place], [address], 10/17/2024 17:36:40 10/18/19 25 10/17/2024 CMP (FEMA LE) globulin 3.6 calc Not Available [facility] [address] [facility], [place], [address], 10/17/2024 17:36:40 10/18/19 25 10/17/2024 CMP (FEMA LE) AST (SGOT) 26.0 U/L 0.0-46 .0 Not Available [facility] [address] [facility] 1, [place], [address], 10/17/2024 17:36:40 10/18/19 25 10/17/2024 CMP (FEMA LE) altv (SGPT) 17.0 U/L 13.0-6 9.0 normal Not Available [facility] [address] [facility] 1, [place], [address], 10/17/2024 17:36:40 10/18/19 25 10/17/2024 CMP (FEMA LE) A/G ratio 1.3 ratio Not Available [facility] [address] [facility] 1, [place], [address], 10/17/2024 17:36:40 10/18/19 25 10/17/2024 CMP (FEMA LE) ALP phos 119.0 U/L 30.0-1 40.0 normal Not Available [facility] [address] [facility] 1, [place], [address], 10/17/2024 17:36:40 10/18/19 25 10/17/2024 CMP (FEMA LE) calcium 9.6 mg/dL 8.4-10 .5 Not Available [facility] [address] [facility], [place], [address], 10/17/2024 17:36:40 10/18/19 25 10/17/2024 CMP (FEMA LE) sodium 127.0 mmol/ L 136.0- 145.0 low Not Available [facility] [address] [facility] [address], [place], [address], 10/17/2024 17:36:40 10/18/19 25 10/17/2024 CMP (FEMA LE) potassium 4.6 mmol/ L 3.5-5. 1 Not Available [facility] [address] [facility] [address], [place], [address], 10/17/2024 17:36:40 10/18/19 25 10/17/2024 CMP (FEMA LE) chloride 95.0 mmol/ L 98.0-1 10.0 abnormal Not Available [facility] [address] [facility] [address], [place], [address], 10/17/2024 17:36:40 10/18/19 25 10/17/2024 CMP (FEMA LE) C02 22.0 mmol/ L 22.0-3 1.0 Not Available [facility] [address] [facility] [address], [place], [address], 10/17/2024 17:36:40 10/18/19 25 10/17/2024 CMP (FEMA LE) anion gap 10.0 calc Not Available [facility] [address] [facility] [address], [place], [address], 10/17/2024 17:36:40 10/18/19 25 10/17/2024 CMP (FEMA LE) osmolality 269.0 calc Not Available [facility] [address] [facility] [address], [place], [address], 10/17/2024 17:36:40 10/18/19 25 10/18/2024 IRON, TIBC AND ROSE TIN PANEL iron, total 74 mcg/d L 45-160 normal Not Available [address] [place], [address], 10/18/2024 09:29:39 10/18/19 25 10/18/2024 IRON, TIBC AND ROSE TIN PANEL iron binding capacity 277 mcg/d L_(ca lc) 250-45 0 normal Not Available [address], [address], 10/18/2024 09:29:39 10/18/19 25 10/18/2024 IRON, TIBC AND ROSE TIN PANEL % saturation 27 %_(ca lc) 16-45 normal Not Available [address], [address], 10/18/2024 09:29:39 10/18/19 25 10/18/2024 IRON, TIBC AND ROSE TIN PANEL ferritin 269 NG/mL 16-288 normal Not Available [address], [address], 10/18/2024 09:29:39 10/18/19 25 10/18/2024 VITAM IN [...] pg/mL will have sympt oms. Not Available [address], [address], 10/18/2024 09:29:39 06/03/20 25 10/18/2024 VITAM IN B12/F OLATE , SERUM PANEL folate, serum 19.9 NG/mL normal Refer ence Range Low: <3.4 Borde rline : 3.4-5 .4 Whit l: >5.[address] [facility] [address] [place], [address], 10/18/2024 09:29:39 10/18/19 25 10/18/2024 CULTU RE, URINE , ROUTI NE culture, urine, routine SEE NOTE CULTU RE, URINE , ROUTI NE Micro Numbe r: [id number] Test Statu s: Final Speci men Sourc e: Urine Speci men Quali ty: Adequ ate Resul t: No Growt h Not Available [facility] [address] [place], [address], 10/18/2024 22:16:10 08/22/19 25 08/21/2024 elect rocar diogr am No observ ation record ed. [email or web address] [facility] [address] [place], [address], 08/24/2024 11:34:34 08/22/19 25 08/21/2024 elect rocar diogr am No observ ation record ed. [email or web address] [facility] [address] [place], [address], 08/22/2024 08:41:28 08/22/19 25 08/21/2024 elect rocar diogr am No observ ation record ed. [email or web address] [facility] [address] [place], [address], 08/22/2024 08:42:20 09/05/19 25 08/31/2024 XR, scapu la No observ ation record ed. [email or web address] [facility] [address] [place], [address], 09/06/2024 14:27:10 09/08/19 25 09/07/2024 XR, chest , 2 view No observ ation record ed. [email or web address] [facility] [address] [place], [address], 09/13/2024 17:54:11 09/09/19 25 09/07/2024 XR, chest , 2 view No observ ation record ed. [facility] [address] [place], [address], 09/14/2024 09:58:15 09/12/1909/07/2024 XR, chest , 2 view No observ ation record ed. [email or web address] [facility] [address] [place], [address], 09/12/2024 09:02:36 Result Notes None recorded. Problems Name Problem SNOMED Code Status Onset Date Resolution Date Notes Provider Name and Address Organization Details Recorded Time Benign hypertension 73687469 Active 2021 Viry oconnell [facility] 4 13:37:03 Vertigo 375493941 Active 2021 SKIP KING [facility] 5 14:33:30 Herpes zoster 1445392 Active 2021 Zoster CONSTANCE NDIAYE [facility] 5 11:30:41 Problem Notes None recorded. Procedures Surgical History Date Name Laterality Status Provider Name and Address Organization Details Recorded Time 5 Colonoscopy completed Viry Torres [facility] 01/01/2024 13:37:48 Hysterectomy completed SKIP KING [facility] 03/16/2023 12:25:50 Imaging Results None recorded. [...] Not Available Not Available No t Available doxepin 10 mg capsule Take by oral route for 30 days. active Not Available Not Available No t [...] diazepam 5 mg tablet BRING TABLETS TO [facility] active Not Available Not Available No t [...] Updated DateTime 5 170.18 cm 23.2 kg/m2 71541.6 7 g 98.1 [degF] 97 % 97 % 78 /min 140/80 mm[Hg] SKIP JACOBSEN [facility] 5 14:57:38 Date Recorded Body height Body mass index (BMI) Body weight Body temperature Oxygen saturation Oxygen saturation in Arterial blood by Pulse oximetry Heart rate Systolic And Diastolic Provider Name and Address Organization Details Last Updated DateTime 5 170.18 cm 23.2 kg/m2 17328.6 7 g 97.7 [degF] 96 % 96 % 80 /min 120/80 mm[Hg] SKIP JACOBSEN [facility] 5 11:51:00 Date Recorded Body height Body mass index (BMI) Body weight Oxygen saturation Oxygen saturation in Arterial blood by Pulse oximetry Heart rate Body temperature Systolic And Diastolic Provider Name and Address Organization Details Last Updated DateTime 5 170.18 cm 22.2 kg/m2 98631.1 2 g 99 % 99 % 107 /min 98.5 [degF] 118/80 mm[Hg] Rachel Johnson [facility] 5 12:57:11 Date Recorded Body height Body mass index (BMI) Body weight Body temperature Oxygen saturation Oxygen saturation in Arterial blood by Pulse oximetry Heart rate Systolic And Diastolic Provider Name and Address Organization Details Last Updated DateTime 5 170.18 cm 22.1 kg/m2 26676.5 2 g 97.1 [degF] 98 % 98 % 72 /min 130/72 mm[Hg] CONSTANCE NDIAYE [facility] 5 15:43:37 Date Recorded Body height Body mass index (BMI) Body weight Body temperature Oxygen saturation Oxygen saturation in Arterial blood by Pulse oximetry Heart rate Provider Name and Address Organization Details Last Updated DateTime 5 170.18 cm 22.1 kg/m2 41770.5 2 g 98.4 [degF] 98 % 98 % 89 /min [facility] 5 14:30:13 Social History Question Answer Notes LastModified by Organizat ion Details LastModified Time Tobacco Smoking Status Never Smoker CONSTANCE NDIAYE [facility] 10/27/2022 11:35:03 What Was The Date Of Your Most Recent Tobacco Screening? 10/14/2024 outs Information not available 10/14/2024 Sex: Unknown Functional Status Question Answer Note LastModified by Organizat ion Details LastModified Time Do you use any illicit or recreational drugs? No [email or web address] Information not available 10/27/2022 What is your level of alcohol consumption? None [email or web address] Information not available 10/27/2022 Mental Status None recorded. Family History Relationship Description Onset Age of this Age Resolved Age Notes LastModified by Organization Details LastModified Time Mother Diabetes mellitus [email or web address] Not available 02/16 12:25:05 Mother Transient cerebral ischemia [email or web address] Not available 02/16 12:25:11 Father Malignant tumor of stomach [email or web address] Not available 02/16 12:25:26 Medical History Condition Response Coronary Artery Disease N Other N Gout N Kidney Stones N Blood Diseases N Hyperthyroidism N Breast Cancer N Blood Transfusion N Hypothyroidism N Lung Disease N COPD N Depression N Defects or Inherited Disease N Developmental or Behavioral Disorders N Breast Problem N Difficulty Swallowing N Anesthesia Complications N Meniere's disease N Anxiety Disorder N Muscle, Joint, or Bone Problems N Vision or Eye Problems N Arthritis N Infertility N Polyps N Cancer N Stroke N Varicosities N Endometriosis N Bladder or Kidney Problems [...] N Heart Disease N Pulmonary Embolism N Chronic Ear Infections N Pre-Eclampsia N Hypertension Y Chicken Pox N Autism Spectrum Disorder (ASD) N Osteoporosis N Thrombophilias N Gynecological HistoryNo gynecological history recorded. Obstetrics History GPAL:G 4 P 3 0 1 3 Type Value Full Term 3 Spontaneous 1 Living 3 Total 4 Immunizations Vaccine Type Date Status Note Provider Nam e and Address Organization Details Recorded Time Influenza, high-dose, quadrivalent, PF 3 completed SKIP KING [facility] 03/16/2023 12:23:12 COVID-19, mRNA, LNP-S, PF, 50 mcg/0.5 mL 3 completed Viry Torres [facility] 01/01/2024 13:36:46 Influenza, high-dose, trivalent, PF 4 completed Not Available [facility] 10/23/2024 14:26:40 Influenza, high-dose, quadrivalent, PF 2 [facility] 10/27/2022 11:32:34 Influenza, adjuvanted, quadrivalent, PF 1 completed CONSTANCE oconnell [facility] 10/27/2022 11:32:34 COVID-19, mRNA, LNP-S, PF, 100 mcg/0.5mL dose or 50 mcg/0.25mL dose 1 completed CONSTANCE oconnell [facility] 10/27/2022 11:32:35 COVID-19, mRNA, LNP-S, PF, 100 mcg/0.5mL dose or 50 mcg/0.25mL dose 1 completed CONSTANCE oconnell [facility] 10/27/2022 11:32:35 COVID-19, mRNA, LNP-S, PF, 100 mcg/0.5mL dose or 50 mcg/0.25mL dose 1 completed [facility] 10/27/2022 11:32:35 COVID-19, mRNA, LNP-S, bivalent, PF, 50 mcg/0.5 mL or 25mcg/0.25 mL dose 2 completed [facility] 10/27/2022 11:32:35 pneumococcal polysaccharide PPV23 0 completed [facility] 10/27/2022 11:32:35 Pneumococcal conjugate PCV 13 9 completed [facility] 10/27/2022 11:32:35 Influenza, high-dose, trivalent, PF 9 completed [facility] 10/27/2022 11:32:35 Influenza, high-dose, trivalent, PF 7 completed [facility] 10/27/2022 11:32:35 Influenza, high-dose, trivalent, PF 8 completed [facility] 10/27/2022 11:32:35 Influenza, high-dose, trivalent, PF 6 completed [facility] 10/27/2022 11:32:35 Influenza, split virus, trivalent, preservative 4 completed [facility] 10/27/2022 11:32:35 Influenza, split virus, trivalent, PF 5 completed [facility] 10/27/2022 11:32:35 Past Encounters Encounter ID Performer Location Encounter Start Date Encounter Closed Date Diagnosis/Indication Diagnosis SNOMED-CT Code Diagnosis ICD10 Code Diagnosis Note [id number] Eve Meeks MD [facility] Health) [address] [place] [phone] 5 10/27/2022 11:23:56 11/01/2022 12:34:44 Essential hypertension [id number] I10 controlled . Seasonal allergy 1582648 04 J30.2 refill requested. [id number] Eve Meeks MD [facility] ([facility]) [address] [place] [address] [phone] 5 12/10/2022 13:36:40 12/10/2022 18:13:26 Acute bronchitis [id number] J20.9 [id number] Eve Meeks MD [facility] ([facility]) [address] [place] [address] [phone] 5 03/16/2023 12:10:35 03/16/2023 12:48:09 Pain in left foot [id number] 05003 M79.672 handout given on plantar fasciitis stretches to perform. [id number] Eve Meeks MD [facility] ([facility]) [address] [place] [address] [phone] 5 04/26/2023 11:35:40 04/26/2023 12:57:00 Benign hypertension 94639016 I10 pt requests labs be done another time. I'm ok with waiting 6 months since her have been good. 04/26/23 [id number] Eve Meeks MD [facility] ([facility]) [address] [place] [address] [phone] 5 10/26/2023 11:43:29 10/26/2023 12:30:00 Essential hypertension [id number] I10 controlled . History of malignant neoplasm of skin [id number] Z85.828 derm: Dr. Jamison [id number] CAITLIN LARSON APRN [facility] ([facility]) [address] [place] [address] [phone] 5 04/15/2024 11:45:10 04/18/2024 11:44:00 Acute maxillary sinusitis 62649958 J01.00 [id number] Eve Meeks MD [facility] ([facility]) [address] [place] [address] [phone] 04/26/2024 14:00:21 04/26/2024 17:28:47 Benign hypertension 77650878 I10 Controlled 04/26/2024 Acute sinusitis 05828470 J01.90 Not improved. Change antibiotic 04/26/2024 [id number] Eve Meeks MD [facility] ([facility]) [address] [place] [address] [phone] 5 08/21/2024 11:16:31 08/21/2024 13:02:13 Neuropathy 055460379 G62.9 Tingling and burning in fingers. 08/21/2024 Left sided chest pain 28 3929010 R07.9 Constant, improved with activity. I suspect musculoske letal. 08/21/2024 Muscle spa sm of thoracic back [id number] 83648 M62.830 Area of concern feels better with deep pressure. Patient was advised on massage, heat, stretching . I educated her on self massage using a foam roller. 08/21/2024 [id number] Eve Meeks MD [facility] ([facility]) [address] [place] [address] [phone] 5 08/31/2024 12:05:29 08/31/2024 15:45:54 Pain of bilateral hands 3827156070 9081344 M79.641 M79.642 Pain of le ft shoulder blade 276991986 M89.8X1 12:54 PM I received a message from all prescripti on saying that the tramadol did not go through and needed to be sent manually. Going to go ahead and change this to a muscle relaxer. 08/31/2024 [id number] Eve Meeks MD [facility] ([facility]) [address] [place] [address] [phone] 5 09/07/2024 14:52:51 09/09/2024 07:28:13 Chronic pain of left upper limb 0127569388 1688413 M25.512 G89.29 Just medial to the scapula. [...] 50mg. 09/07/24 Pain of bi lateral hands [id number] 4786648 M79.641 M79.642 dc 10mg and change to 25mg. Today she will start doing the 2 tabs of the 10 mg to go up to 20 mg. When she runs out of that she will take the 25 mg. 09/07/24 [id number] Eve Meeks MD [facility] ([facility]) [address] [place] [address] [phone] 5 09/11/2024 11:24:24 09/14/2024 07:13:38 Compression fracture of thoracic spine 133374574 M48.54XA This is at about the level [...] refer to spine center. 09/11/2024 Neuropathic pain 5085438 09 M79.2 Very localized to just her fingertip pads. We will try increasing the dose again. I discussed that the medication does take time to work. 09/11/2024 [id number] CAITLIN LARSON APRN [facility] ([facility]) [address] [place] [address] [phone] 5 10/14/2024 12:45:23 10/16/2024 13:37:18 Neuropathy 441083643 G62.9 [id number] Eve Meeks MD [facility] ([facility]) [address] [place] [address] [phone] 10/17/2024 15:09:28 10/18/2024 10:18:47 Visual hallucinations 64874044 R44.1 pt thinks may be tramacol but she stopped it Wednesday and is still seeing things. 7 half-lives for tramadol would be 56 hrs....I think it may be her amitriptyl ine but she says she is not taking the amitriptyl ine.... Insomnia 338649226 G47.0 9 Patient vacillates between insomnia and pain keeping her awake. She was able to sleep when she took the stronger pain medication . Backache 921470806 M54.5 0 M54.6 She has already seen neurosurge flavio and they were awaiting results of an MRI with possible referral to neurology. She seems very miserable and even somewhat depressed by this pain in her shoulder back area. We will try a stronger pain medicine and hope that it does not give her additional side effects. Asthenia 27887793 R53.1 We will check some basic lab work. I'm really at a loss as to why the pt is declining. ... Unfortunat zenon neurosurge flavio did not have much to add as far as her back pain goes. [id number] Eve Meeks MD [facility] ([facility]) [address] [place] [address] 10/23/2024 14:25:35 10/24/2024 15:05:45 Essential hypertension 33102069 I10 controlled . Post-disch arge follow-up 754204186 Z09 Acute constipation 98943 9006 K59.00 I reviewed patient's ER visit [...] REPLACEMENT/ ADVANTAGE - PPO) [id number] Jaz Newell [id number] Jaz Newell Notes Date Note Type [...] shoots to the front. Eve Meeks MD [address] [place] [address], [phone], [facility], [place]. 09/07/2024 17:34:11 09/11/2024 text/html Joint PainReport ed bypatient.Location :left shoulder Quality:sharp Severity:no change Associated Symptoms:no fever she cant tell a difference in her back.... But she is sleeping better She cannot tell a difference with her fingers. She is on the 20 mg Eve Meeks MD [address] [place] [address], [phone], [facility], [place]. 09/11/2024 13:51:23 10/14/2024 text/html walk inno appetite, fullness, x1 week chills, fatigue, having neuropathy CAITLIN LARSON APRN [address] [place] [address], [phone], [facility], L[facility]uan [facility]. 10/14/2024 13:30:59 10/17/2024 text/html for the last [...] terrazas in my house. Eve Meeks MD [address] [place] [address], [phone], [facility], LIvana. 10/24/2024 13:57:29 10/23/2024 text/html Patient was recently seen in the ER for abdominal painShe was diagnosed with constipation and given instructions to take 2 laxatives. She has not gotten these laxatives from the store yet.She has bowel movements but only goes a little bit at a time she points to the tip of her finger like peanut sized. Eve Meeks MD [address] [place] [address], [phone], [facility], [place] 10/24/2024 13:40:12 OBGyn Episode No OBEpisode recorded.
--- NOTE | 2024-12-01 10:31 | ECG_ITS ---
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 Measurements Intervals Valier Rate: 82 P: 56 MA: 156 QRS: 46 QRSD: 91 T: 41 QT: 394 QTc: 463 Interpretive Statements SINUS RHYTHM INTERPRETATION BASED ON A DEFAULT AGE OF 40 YEARS Compared to ECG 11/21/2024 21:53:29 No significant changes Electronically Signed On 12-02-2024 14:10:49 CDT by Elke Rodriguez M.D. [email or web address]
--- NOTE | 2024-12-01 10:31 | XR_ITS ---
WS: [id number] XR chest 1V portable [id number] REASON FOR EXAM: chest pain FINDINGS: Chest is unchanged compared to 11/21/2024. Moderate tortuosity and ectasia of the thoracic aorta. Heart size at the upper limits of normal. Significant calcification of the mitral valve annulus. Chronic pulmonary parenchymal scarring and atelectasis along the minor fissure and in the both lower lobes. No acute pulmonary parenchymal or pleural abnormality. Moderate osteoarthritis both shoulders. Moderate degenerative spondylosis in the lumbar spine. XR/XR chest 1V portable [id number] IMPRESSION: Stable chest as above. No acute abnormality.
[2024-12-01 11:40] LABS: Hematocrit 36.2 % (36-47); Hemoglobin 12.60 g/dL (11.27-16.99); Mean Corpuscular HGB Conc 34.8 g/dL (30-55); Mean Corpuscular Hemoglobin 30.2 pg (27-33); Mean Corpuscular Volume 86.8 fl (85-98); Nucleated Red Blood Cells % 0 %; Platelet Count 328 10^3/cmm (157-399); Red Blood Count 4.17 10^6/uL (3.85-5.65); White Blood Count 5.21 10^3/uL (3.29-11.43)
--- NOTE | 2024-12-01 11:50 | ED_ITS ---
HPI - Chest Pain 2 General: Chief Complaint: Chest Pain Stated Complaint: Sick Time Seen by Provider: 12/01/24 11:29 History of Present Illness: Patient is an elderly female who presents to the ED with chief complaint of low back pain and chest pain. Patient reports having low back pain for approximately one month, which she describes as unbearable and diffuse across her lower back. She denies any specific injury or trauma that precipitated the back pain. Patient states she has been to the ED 2-3 times previously for this back pain without resolution. Patient also reports acute onset of chest pain that began this morning while en route to the ED (she was coming to the ED for her back pain). She describes the chest pain as a hot stabbing pain located primarily on the left side of her chest. She denies any alleviating or exacerbating factors for the chest pain. Patient reports she was evaluated by a commissioning specialist in [place] approximately 2-3 weeks ago who performed a cortisone injection in her neck, but states this did not provide relief. She mentions being told she has a pinched nerve between vertebrae 3 and 4. Patient also reports a history of hand pain, which she states was diagnosed as neuropathy, not arthritis. Patient reports difficulty sleeping due to pain, stating she wakes up after about 2 hours of sleep and cannot return to sleep for the remainder of the night. Related Data Home Medications ?Medication ?Instructions ?Recorded ?Confirmed irbesartan 300 mg tablet 300 mg PO QAM 10/25/2412/01 doxepin 10 mg capsule 10 mg PO BEDTIME PRN Sleep 0 11/27/24 12/01/24 sodium chloride 1,000 mg soluble 1,000 mg PO QAM 12/0112/01/24 tablet Previous Rx's ?Medication ?Instructions ?Recorded amlodipine 10 mg tablet 10 mg PO QDAY 90 days #90 ta bs 12/22/21 fluticasone propionate 50 2 spray intranasal BID #16 g kelvin 03/19/22 mcg/actuation nasal spray,suspension (Allergy Relief (fluticasone)) duloxetine 30 mg capsule,delayed 30 mg PO DAILY #30 ca ps 11/27/24 release (Cymbalta) Allergies Allergy/AdvReac Type Severity Reaction Status Date / Time No Known Allergies Allergy Verified 11/27/24 12:52 [facility] ED 2 [facility]: Medical History (Updated 12/01/24 @ 15:48 by Jovi Walker MD) Insomnia Stenosis of right carotid artery HTN (hypertension), benign Surgical History History of hysterectomy Family History Other Cancer Diabetes Stroke Social History Smoking and tobacco/nicotine status: never used tobacco/nicotine Alcohol intake: never Substance/Drug Use: never Household members: spouse Housing: House Marital status: Physical Exam 2 Const: COMMON NORMALS: average body habitus, alert and well nourished G ENERAL APPEARANCE: cooperative, in distress and anxious O RIENTATION/CONSCIOUSNESS: Yes awake HENMT: COMMON NORMALS: normocephalic and atraumatic HEAD & SCALP: n ormocephalic and atraumatic Eye: COMMON NORMALS: conjunctivae normal CONJUNCTIVA: Yes conjunctivae normal Neck/C-Spine: GENERAL: Yes normal visual inspection Resp: COMMON NORMALS: normal respiratory effort, No retractions and No use of accessory muscles Cardio: COMMON NORMALS: regular rhythm and Peripheral pulses 2+ throughout RHYTHM: regular rhythm PERIPHERAL PULSES: Peripheral pulses 2+ throughout GI: COMMON NORMALS: Soft to palpation and non-tender PALPATION: Yes Soft to palpation Extremity: COMMON NORMALS: full ROM and no pedal edema Neuro: COMMON NORMALS: no focal motor deficits SENSORIUM/ORIENTATION: Yes alert Skin: COMMON NORMALS: no rashes or lesions noted GENERAL SKIN EXAM: no rashes or lesions noted Course 2 Vital Signs: Vital signs: Vital Signs Temperature 97.5 F L 12/01/24 10:19 Pulse Rate 78 12/01/24 15:21 Respiratory Rate 18 12/01/24 15:21 Blood Pressure 143/79 12/01/24 15:21 Pulse Oximetry 92 12/01/24 15:21 Oxygen Delivery Me thod Room Air 12/01/24 10:19 MDM - Chest Pain Medical Decision Making ROS: Constitutional: Positive for insomnia due to pain. Denies fever, chills, or weight loss. Cardiovascular: Positive for chest pain as described in HPI. Denies palpitations, syncope, or edema. Respiratory: Denies shortness of breath, cough, or wheezing. Musculoskeletal: Positive for low back pain, left shoulder pain, and pain behind right ear. Also reports pain in hands with limited use due to pain. Neurological: Reports neuropathy in hands. Denies focal weakness, numbness, or tingling in extremities. Gastrointestinal: Positive for constipation. Denies nausea, vomiting, abdominal pain, or changes in bowel habits. All other systems reviewed and negative. MEDICATIONS AND ALLERGIES: Medications: - Tylenol Extra Strength (patient takes before bed) - Recently prescribed medication from Dr. Brown (appears to be duloxetine) - Patient reports having leftover hydrocodone Allergies: No known drug allergies reported PAST HISTORICAL DATA: PMH: Neuropathy in hands, chronic low back pain, constipation PSH: None specifically mentioned Social History: Limited information available Family History: Not provided PHYSICAL EXAM: General: Patient is awake, alert, and in mild distress. Notably uncomfortable and anxious. HEENT: Head normocephalic and atraumatic. Mucous membranes moist. Neck: Supple Respiratory: No increased work of breathing, no wheezing Cardiac: Regular rate and rhythm, 2+ pulses in all extremities Abdomen: Soft, non-distended, no rebound or guarding Neuro: Cranial nerves grossly intact, no focal motor or sensory deficits noted Musculoskeletal: Tenderness noted in lower back region, left shoulder, and behind right ear INITIAL IMPRESSION AND PLAN: Given the history and presentation, the primary working diagnosis is chronic low back pain with possible radiculopathy. Additional considerations include acute chest pain of uncertain etiology, which requires ruling out cardiac causes, pulmonary embolism, and aortic pathology. Based on this initial impression I will order: 1. CT angiogram of chest, abdomen, and pelvis to evaluate for aortic pathology and other potential causes of pain 2. CBC, CMP to assess for infection, electrolyte abnormalities, and renal function 3. Cardiac enzymes (troponin) to rule out acute coronary syndrome 4. Urinalysis to rule out urinary tract infection 5. EKG to evaluate for cardiac ischemia 6. Pain management with morphine and anti-emetic (Zofran) for symptom control 7. Reassessment after diagnostic studies completed TEST INTERPRETATIONS: CTA of chest, abdomen, and pelvis: No acute abnormality. Normal caliber thoracic aorta. No evidence of aortic dissection. Normal caliber abdominal aorta. No abdominal aortic dilation. Subsegmental atelectasis in right upper lobe and lingula. No acute cardiopulmonary infiltrates. Small esophageal hiatal hernia. Bilateral peripelvic renal cysts similar to prior exam. Urine distended bladder. No sigmoid diverticulosis. No evidence of acute diverticulitis. Mild constipation noted. CBC: Normal Chemistry panel: Overall unremarkable. Mild hyponatremia with sodium of 130, BUN of 8, creatinine of 0.8, bicarbonate of 19. Troponin: Initial 19, repeat 20, stable without significant elevation. Urinalysis: Unremarkable without evidence of infection. EKG: Normal sinus rhythm with rate of 82 beats per minute. No ischemic ST elevation or depressions. PROCEDURES: No high-risk procedures performed during this encounter. CONSIDERED BUT NOT PERFORMED: Lumbar spine MRI CONSIDERED but NOT DONE due to patient having recently undergone MRI of spine at outside facility approximately 2 weeks ago. Opioid pain medication prescription CONSIDERED but NOT DONE due to patient already having recently received pain medication prescription from primary care provider and having leftover hydrocodone at home. OTC medication(s)/intervention(s) recommended included: MiraLAX for constipation, to be taken with 12-14 ounces of water/juice 2-3 times daily until achieving soft bowel movements. FINAL IMPRESSION: Based on all the above, my clinical impression is most compatible with chronic low back pain with radiculopathy and non-cardiac chest pain. The clinical picture is not currently suggestive of acute coronary syndrome, aortic dissection, pulmonary embolism, or acute intra-abdominal pathology. Although other conditions were also considered, they were deemed unlikely based on the clinical information available. CLINICAL DISPOSITION: The patient's current condition is stable in my estimation and the most appropriate and indicated disposition at this time is discharge home with outpatient follow-up. The patient is safe for discharge home as comprehensive diagnostic testing has ruled out emergent or life-threatening conditions. Her chest pain has improved with pain medication, and her vital signs are stable. The chronic nature of her back pain is better addressed in the outpatient setting with appropriate specialty care. She has pain medication at home and understands how to use it appropriately. She has been counseled on when to return to the ED and the importance of following up with her primary care physician and commissioning specialist. RISK STRATIFICATION AND CLINICAL DECISION RULES APPLIED: HEART score assessment for chest pain: Low risk based on history, EKG without ischemic changes, age, risk factors, and normal troponins. This supports outpatient management without need for admission for cardiac monitoring. Back pain red flag assessment: Patient denies saddle anesthesia, no urinary incontinence or retention, and no lower extremity weakness. Recent imaging (MRI) has been performed and reviewed by commissioning specialist without indication for emergent intervention. CASE SUMMARY: Elderly female patient presented to the ED with chronic low back pain of one month duration and acute onset left-sided chest pain that began while en route to the hospital. Patient has been evaluated previously for back pain and was seen by a commissioning specialist 2-3 weeks ago who performed a cortisone injection and diagnosed a pinched nerve between vertebrae 3-4. Comprehensive workup including CTA of chest/abdomen/pelvis, cardiac enzymes, EKG, and laboratory studies was performed to evaluate both complaints. All diagnostic studies were negative for acute pathology. Patient was treated with IV morphine and Zofran while in the ED with improvement in symptoms. Patient has appropriate pain medication at home and was counseled on proper use. Patient was discharged in stable condition with instructions to follow up with her primary care physician and commissioning specialist. Case management was requested to assist with referral to Dr. Villa for further spine evaluation. Patient was advised to return to the ED for worsening symptoms or new concerns. Lab Data I reviewed the patient's lab results. 12/01/24 11:30 12/01/24 11:30 Radiology Impressions Chest X-Ray 12/01/24 10:31 IMPRESSION: Stable chest as above. No acute abnormality. Chest/Abdomen/Pelvis CTA 12/01/24 11:50 IMPRESSION: 1. Normal caliber thoracic aorta. No evidence of aortic dissection. Normal caliber abdominal aorta. Normal caliber abdominal aorta. 2. Subsegmental atelectasis in the RIGHT upper lobe and lingula. No acute pulmonary infiltrates. 3. Small esophageal hiatal hernia. 4. Bilateral peripelvic renal cysts similar to the prior examination. 5. Urine distended bladder. 6. Sigmoid diverticulosis. No evidence of acute diverticulitis. Mild constipation. Laboratory Results WBC 5.21 10^3/uL (3.29-11.43) 12/01/24 11:30 RBC 4.17 10^6/uL (3.85-5.65) 12/01/24 11:30 Hgb 12.60 g/dL (11.27-16.99) 12/01/24 11:30 Hct 36.2 % (36-47) 12/01/24 11:30 MCV 86.8 fl (85-98) 12/01/24 11:30 MCH 30.2 pg (27-33) 12/01/24 11:30 MCHC 34.8 g/dL (30-55) 12/01/24 11:30 RDW 13.6 % (12.1-15.1) 12/01/24 11:30 Plt Count 328 10^3/cmm (157-399) 12/01/24 11:30 MPV 9.7 fL (7.4-10.4) 12/01/24 11:30 Neut % (Auto) 60.4 % 12/01/24 11:30 Lymph % (Auto) 25.9 % 12/01/24 11:30 [place] % (Auto) 11.9 % 12/01/24 11:30 Eos % (Auto) 0.8 % 12/01/24 11:30 Baso % (Auto) 0.4 % 12/01/24 11:30 Neut # (Auto) 3.15 10^3/uL (1.8-7.7) 12/01/24 11:30 Lymph # (Auto) 1.4 10^3/uL (0.8-4.8) 12/01/24 11:30 [place] # (Auto) 0.6 10^3/uL (0.2-0.9) 12/01/24 11:30 Eos # (Auto) 0.0 10^3/uL (0.0-0.8) 12/01/24 11:30 Baso # (Auto) 0.0 10^3/uL (0.0-0.1) 12/01/24 11:30 Nucleated RBC % (auto) 0 % 12/01/24 11:30 Nucleated RBCs # 0.0 /100WBC 12/01/24 11:30 Sodium 130 mmol/L (136-145) L 12/01/24 11:30 Potassium 3.7 mmol/L (3.5-5.1) 12/01/24 11:30 Chloride 93 mmol/L (98-107) L 12/01/24 11:30 Carbon Dioxide 19 mmol/L (22-29) L 12/01/24 11:30 Anion Gap 21.7 (5-19) H 12/01/24 11:30 BUN 8 mg/dL (8-23) 12/01/24 11:30 Creatinine 0.8 mg/dL (0.5-0.9) 12/01/24 11:30 GFR Calculation Not Reportable 12/01/24 11:30 Glucose 100 mg/dL (65-115) 12/01/24 11:30 Calculated Osmolality 268 mOsm/kg (285-295) L 12/01/24 11:30 Calcium 9.4 mg/dL (8.5-10.5) 12/01/24 11:30 Total Bilirubin 0.9 mg/dL (0.15-1.2) 12/01/24 11:30 AST 13 U/L (0-32) 12/01/24 11:30 ALT 9 U/L (0-33) 12/01/24 11:30 Alkaline Phosphatase 114 U/L (35-105) H 12/01/24 11:30 Troponin T Baseline 19 ng/L (0-10) H 12/01/24 11:30 Troponin T 120 Minute 20.09 ng/L (0-10) H 12/01/24 14:00 Delta Troponin T 1.09 ABS# (0-10) 12/01/24 14:00 Total Protein 6.6 g/dL (6.6-8.7) 12/01/24 11:30 Albumin 3.9 g/dL (3.5-5.2) 12/01/24 11:30 Globulin 2.7 g/dL (1.3-4.6) 12/01/24 11:30 Urine Color Yellow (Yellow) 12/01/24 11:56 Urine Appearance Clear (CLEAR) 12/01/24 11:56 Urine pH 8.5 (5-7) A 12/01/24 11:56 Ur Specific [place] 1.006 (1.005-1.030) 12/01/24 11:56 Urine Protein Negative (Negative) 12/01/24 11:56 Urine Glucose (UA) Negative (Normal) 12/01/24 11:56 Urine Ketones 1+ (Negative) H 12/01/24 11:56 Urine Blood Trace (Negative) A 12/01/24 11:56 Urine Nitrate Negative (Negative) 12/01/24 11:56 Urine Bilirubin Negative (Negative) 12/01/24 11:56 Urine Urobilinogen 1.0 mg/dL (Negative) 12/01/24 11:56 Ur Leukocyte Esterase Negative (Negative) 12/01/24 11:56 Urine RBC 6-10 /hpf (0-2) 12/01/24 11:56 Urine WBC 0-5 /hpf (0-5) 12/01/24 11:56 Ur Squamous Epith Cells 0-5 /hpf (0-5) 12/01/24 11:56 Amorphous Sediment Not Reportable 12/01/24 11:56 Urine Bacteria None seen /hpf (NONE) 12/01/24 11:56 Hyaline Casts 0-4 /lpf H 12/01/24 11:56 All radiology interpretation(s) finalized by discharge Discharge Plan Discharge Patient Disposition: Home Clinical Impression: Chest pain Low back pain Qualifiers: Chronicity: acute Back pain laterality: right Sciatica presence: without sciatica Qualified Code(s): M54.50 - Low back pain, unspecified Condition: Stable Prescriptions: No Action doxepin 10 mg capsule 10 mg PO BEDTIME PRN (Reason: Sleep) duloxetine [Cymbalta] 30 mg capsule,delayed release(DR/EC) 30 mg PO DAILY Qty: 30 1RF amlodipine 10 mg tablet 10 mg PO QDAY 90 Days Qty: 90 3RF fluticasone propionate [Allergy Relief (fluticasone)] 50 mcg/actuation spray,suspension 2 spray INTRANASAL BID Qty: 16 3RF Rx Instructions: administer into each nostril irbesartan 300 mg tablet 300 mg PO QAM sodium chloride 1,000 mg tablet,soluble 1,000 mg PO QAM Discharge Orders: Discharge ED (Routine); Ordered 12/01/24 Ordered By: Jovi Walker Referrals: Adán Villa MD [Referring, Neurosurgery] - 7-10 days Satish Hauser MD [Primary Care Provider, Family Practice] Discharge Activity: Increase activity as tolerated Patient Instructions: Back Pain (ED), Opioid Safety, Pain Management, Patient Portal & Adin Instructions Activity Restrictions/Additional Instructions: Medications: 1. Continue your current medications as prescribed by Dr. Hauser 2. You may take Tylenol (acetaminophen) as needed for pain according to package directions 3. If pain is severe, you may use your previously prescribed hydrocodone as directed 4. Take MiraLAX with 12-14 ounces of water or juice 2-3 times daily to prevent constipation, especially if using hydrocodone Follow-up: 1. Follow up with your primary care physician when they return from travel 2. Continue to pursue referral to Dr. Villa for spine evaluation 3. Case management will attempt to assist with this referral Return to the Emergency Department immediately if you experience: 1. Severe, sudden, or worsening chest pain 2. Shortness of breath or difficulty breathing 3. Numbness or weakness in your legs 4. Inability to control your bladder or bowels 5. Severe headache or confusion 6. Fever greater than 101.5?F Additional instructions: 1. Apply heat to painful areas of your back for 20 minutes at a time, several times per day 2. Avoid activities that worsen your pain 3. Try to maintain gentle movement as tolerated - complete bed rest is not recommended for back pain 4. If constipation persists despite MiraLAX, contact your primary care physician Print Language: Setswana Coding Level of Care Code ED Ship Pilot Dispatcher for Marlee Godfrey
--- NOTE | 2024-12-01 11:50 | CT_ITS ---
WS: [id number] CTA CHEST ABDOMEN AND PELVIS TECHNIQUE: Noncontrast plus contrast enhanced CTA of the chest, abdomen, and pelvis with coronal and sagittal reformatted images and additional MIP Images. CLINICAL INFORMATION: chest pain, back pain COMPARISON: CT kidney stone 10/24/2024 DLP: 726.[address] scans at [facility] use at least one of these dose optimization techniques: automated exposure control; mA and/or kV adjustment per patient size (includes targeted exams where dose is matched to clinical indication); or iterative reconstruction. FINDINGS: No acute pulmonary infiltrates. Chronic emphysematous changes. Subsegmental atelectasis RIGHT upper lobe. 4 mm noncalcified nodule RIGHT upper lobe. Noncalcified nodule RIGHT lower lobe measuring 3 mm. 3 mm nodule LEFT upper lobe. Subsegmental atelectasis in the lingula. Normal caliber thoracic aorta. No evidence of dissection. Mild aortic calcification. Mild coronary calcification. No mediastinal or hilar lymphadenopathy. Small esophageal hiatal hernia. No axillary lymphadenopathy. Proximal main pulmonary arteries are normal. Mild thoracic kyphosis. Chronic appearing anterior wedging in the midthoracic spine. Cardiomegaly Normal caliber abdominal aorta. Celiac and SMA are patent. Proximal renal arteries are patent. Tiny hepatic cyst. Small esophageal hiatal hernia. Adrenal glands are normal. Peripelvic renal cysts. No hydronephrosis. Tiny fat-containing umbilical hernia. Sigmoid diverticulosis. No evidence of acute diverticulitis. Mild rectosigmoid fecal retention. No evidence of high-grade small or large bowel obstruction. Grade 1 anterolisthesis L4 on L5. Nonobstructing LEFT renal pelvic calculus measuring [address]/CT [facility] [id number] IMPRESSION: 1. Normal caliber thoracic aorta. No evidence of aortic dissection. Normal [place] iber abdominal aorta. Normal caliber abdominal aorta. 2. Subsegmental atelectasis in the RIGHT upper lobe and lingula. No acute pulm onary infiltrates. 3. Small esophageal hiatal hernia. 4. Bilateral peripelvic renal cysts similar to the prior examination. 5. Urine distended bladder. 6. Sigmoid diverticulosis. No evidence of acute diverticulitis. Mild constipat ion.
[2024-12-01 11:59] LABS: Troponin(5th) Baseline 19 ng/L (0-10)
[2024-12-01 12:00] LABS: Alanine Aminotransferase 9 U/L (0-33); Albumin Level 3.9 g/dL (3.5-5.2); Alkaline Phosphatase 114 U/L (35-105); Anion Gap 21.7 (5-19); Aspartate Amino Transferase 13 U/L (0-32); Carbon Dioxide 19 mmol/L (22-29); Chloride 93 mmol/L (98-107); Globulin 2.7 g/dL (1.3-4.6); Glucose 100 mg/dL (65-115); Potassium 3.7 mmol/L (3.5-5.1); Sodium 130 mmol/L (136-145); Total Protein 6.6 g/dL (6.6-8.7)
--- NOTE | 2024-12-01 12:15 | PC.NURSE ---
this nurse pulled morphine and zofran and asked pt if she needed pain med, pt was unable to respond and give answer, seemed very unsure. this nurse discussed side effects with patient, pt still unsure. this nurse gave patient call light and educated to call nurse when decided.
[2024-12-01 12:21] LABS: Blood Urea Nitrogen 8 mg/dL (8-23); Calcium 9.4 mg/dL (8.5-10.5); Creatinine Clr Calc Pharmacy 48.4901; Osmolality Calculated 268 mOsm/kg (285-295)
[2024-12-01 12:22] LABS: Glucose Urine UA Negative (Normal); Nitrate Urine Negative (Negative); Specific Gravity, Urine 1.006 (1.005-1.030)
[2024-12-01 12:24] LABS: Add Urine Microscopic? YES
[2024-12-01] MEDS: ondansetron 2 mg/ML SDV 2 mL 4 MG IVP (12:46)
[2024-12-01] MEDS: morphine 4 mg/mL SDV 1 mL IVP (12:47)
--- NOTE | 2024-12-01 13:13 | ECG_ITS ---
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
[2024-12-01] MEDS: iohexol 350 mg/mL 500 mL Btl (per mL) IV (13:16)
--- NOTE | 2024-12-01 13:27 | PC.PHAR ---
Pt had Norco5-325 daily at bedtime prn last fill 10/17/24 25ds-she states she stopped taking due to constipation.
[2024-12-01 14:38] LABS: Troponin 5 2HR 20.09 ng/L (0-10); Troponin 5 2HR Delta 1.09 ABS# (0-10)
== END 2024-12-01 16:00 | disposition home or self-care (01) ==
PROVIDERS: Physician Assistant; Emergency Provider Student in an Organized Health Care Education/Training Program; PCP Family Medicine
DX: R07.9 Chest pain, unspecified (principal); M54.50 Low back pain, unspecified; I10 Essential (primary) hypertension
CPT/HCPCS: 36415; 71045; 71275; 74174; 80053; 81001; 84484; 85025; 93005; 96374; 96375; 99285; J2270; J2405

== ENCOUNTER → 2025-01-02 11:33 | Outpatient (BNVA) | payer MEDICARE, SELFPAY | PROVIDERS: PCP Family Medicine; Visit Provider Family Medicine | DX: M79.605 Pain in left leg (principal) | CPT/HCPCS: 80048 ==

== ENCOUNTER 2025-01-11 12:10 | Outpatient (CLI) | payer MEDICARE, SELFPAY ==
--- NOTE | 2025-01-11 12:15 | USCV_ITS ---
Jaz Newell Age: 89 Gender: F : 1935 Exam Date: 01/11/2025 12:26 Ordering Phys: Satish Hauser MD Technologist: Ex[place] [facility] [place]ication: pain HISTORY: Lower extremity pain. PROCEDURES: Venous duplex imaging was performed in only the left lower extremity. FINDINGS: No evidence of DVT seen in any vessel visualized at this time. CONCLUSIONS No evidence of left lower extremity DVT. Nilton Camarena MD (Electronically Signed) Final Date: 11 January 2025 13:20 S
== END 2025-01-11 12:11 | disposition home or self-care (01) ==
LOC: RAD 12:11
PROVIDERS: PCP Family Medicine; Visit Provider Family Medicine
DX: M79.605 Pain in left leg (principal)
CPT/HCPCS: 93971

== ENCOUNTER → 2025-02-27 14:20 | Outpatient (BNVA) | payer MEDICARE, SELFPAY | PROVIDERS: PCP Family Medicine; Visit Provider Emergency Medicine | DX: M79.662 Pain in left lower leg (principal) | CPT/HCPCS: 73590; 73610 ==